=== PATIENT | male | born 1955 | race Caucasian/White ===

== ENCOUNTER 2017-11-12 11:44 | Inpatient (IN) | payer MEDICARE, BC ==
[~2017-11-12] VITALS: Ht 188 cm; Wt 112.1 kg
[2017-11-12] VITALS (13 sets, daily range): BP systolic 158–191; BP diastolic 69–95; PULSE 63–83; RESP 9–20; TEMP 97.7–100.7; O2SAT 95–100
[2017-11-12] MEDS ORDERED: SUCCINYLCHOLINE CHLORIDE 200 MG/10 ML VIAL IV ONE (12:00)
[2017-11-12] MEDS ORDERED: LIDOCAINE HCL 1% PF 5 ML SYRINGE OTHER ONE (12:00)
[2017-11-12] MEDS ORDERED: PROPOFOL 200 MG/20 ML AMP IV ONE (12:00)
[2017-11-12] MEDS ORDERED: PANTOPRAZOLE INJ 80 MG in SODIUM CHLORIDE 0.9% INJ 35 ML IV ONE (12:10)
[2017-11-12] MEDS ORDERED: ONDANSETRON HCL 4 MG/2 ML VIAL IV PUSH ONE (12:15)
[2017-11-12] MEDS ORDERED: MORPHINE SULFATE 2 MG/ML INJ IV PUSH ONE (12:15)
[2017-11-12] MEDS ORDERED: SODIUM CHLOR 0.9% 250 ML INJ 250 ML IV ONE ×2 (12:15→12:45)
[2017-11-12] MEDS ORDERED: SODIUM CHLOR 0.9% 1000 ML INJ 1,000 ML IV ONE (12:15)
[2017-11-12] MEDS ORDERED: PROC10TA PO (12:16)
[2017-11-12] MEDS ORDERED: METH5TAB PO (12:16)
--- NOTE | 2017-11-12 12:16 | PD ---
HPI Chief Complaint: Bleeding Time Seen by Provider: 11:53 Travel History International Travel<30 days: No Contact w/Intl Traveler<30days: No Traveled to known affect area: No History of Present Illness HPI 61-year-old male with PMH of pancreatic cancer status post biliary and duodenal stent presents to the ED for evaluation of approximate 12 hour history of nausea , vomiting, hematemesis, melena, epigastric pain. Symptoms onset suddenly last night before bed. Patient endorses chills, shortness of breath, weakness. He denies fevers, chest pain, palpitations. He states that he is a patient that [facility] in [place], [place]. He is due for his next chemotherapy session in 3 days. He was planning to return home prior to this. PFSH Past Medical History Chemotherapy: Yes (2 WEEKS AGO) Past Surgical History Other Surgery: Yes (BILIARY STENT, DUDONEAL STENT, HEMMORIDECTOMY ) Social History Alcohol Use: No Tobacco Use: No Substance Use: No Allergies-Medications (Allergen,Severity, Reaction): Coded Allergies: No Known Allergies (Unverified , 11/12/17) Reported Meds & Prescriptions Reported Meds & Active Scripts Active Reported Oxycodone (Oxycodone HCl) 10 Mg Tab 10 Mg PO Q8HR PRN NOT TO EXCEED 3 DOSES/24HR Effexor XR 24 HR (Venlafaxine HCl) 75 Mg Cap 75 Mg PO DAILY Creon (Pancrelipase) 36,000-114,000-180,000 Units Cap 1 Cap PO QID BEFORE MEALS AND SNACKS Lovenox Inj (Enoxaparin Sodium) 100 Mg/Ml Syr 100 Mg SQ BID Remeron (Mirtazapine) 15 Mg Tab 7.5 Mg PO HS PRN Lasix (Furosemide) 20 Mg Tab 20 Mg PO DAILY PRN Neurontin (Gabapentin) 300 Mg Cap 300 Mg PO TID Omeprazole 20 Mg Tab 20 Mg PO BID Ambien CR (Zolpidem Tartrate) 12.5 Mg Tab 12.5 Mg PO HS PRN Carafate (Sucralfate) 1 Gram Tab 1 Gm PO QID On empty stomach Prochlorperazine Maleate 10 Mg Tab 10 Mg PO Q6H PRN Methadone (Methadone HCl) 5 Mg Tab 5 Mg PO Q8HR Review of Systems Except as stated in HPI: all other systems reviewed are Neg Physical Exam Narrative GENERAL: Well-nourished, well-developed tachypneic white male SKIN: Focused skin assessment warm/dry. Pale HEAD: Normocephalic. EYES: No scleral icterus. No injection or drainage. NECK: Supple, trachea midline. No JVD or lymphadenopathy. CARDIOVASCULAR: Regular rate and rhythm without murmurs, gallops, or rubs. RESPIRATORY: Breath sounds clear and equal bilaterally. No accessory muscle use. GASTROINTESTINAL: Abdomen soft, nondistended. Tender to palpation in the epigastric region. Active bowel sounds. RECTAL EXAM: No masses or tenderness, stool is maroon. Guaiac positive. MUSCULOSKELETAL: No cyanosis. 2+ edema to the midshin bilaterally. BACK: Nontender without obvious deformity. No CVA tenderness. Data Data Last Documented VS Vital Signs Date Time Temp Pulse Resp B/P (MAP) Pulse Ox O2 Delivery O2 Flow Rate FiO2 11/12/17 13:14 98.8 74 18 158/69 99 11/12/17 12:06 Room Air Orders Orders Complete Blood Count With Diff (11/12/17 11:52) Comprehensive Metabolic Panel (11/12/17 11:52) Lipase (11/12/17 11:52) Prothrombin Time / Inr (Pt) (11/12/17 11:52) Act Partial Throm Time (Ptt) (11/12/17 11:52) Urinalysis - C+S If Indicated (11/12/17 11:52) Type And Screen (11/12/17 11:52) Ecg Monitoring (11/12/17 11:52) Iv Access Insert/Monitor (11/12/17 11:52) Oximetry (11/12/17 11:52) Ondansetron Inj (Zofran Inj) (11/12/17 12:15) Sodium Chlor 0.9% 1000 Ml Inj (Ns 1000 M (11/12/17 12:15) Morphine Inj (Morphine Inj) (11/12/17 12:15) Red Blood Cells (Rbc) (11/12/17 12:10) Blood Product Administration (11/12/17 12:10) Sodium Chlor 0.9% 250 Ml Inj (Ns 250 Ml (11/12/17 12:15) Sodium Chloride 0.9... W/Pantoprazole In (11/12/17 12:10) Blood Product Administration (11/12/17 12:37) Sodium Chlor 0.9% 250 Ml Inj (Ns 250 Ml (11/12/17 12:45) Red Blood Cells (Rbc) (11/12/17 12:37) Insert Ng Tube (11/12/17 13:12) Consult Gastroenterology (11/12/17 ) Sodium Chloride 0.9... W/Pantoprazole In (11/12/17 13:12) Admit Order (Ed Use Only) (11/12/17 13:22) Labs Laboratory Tests Test 11/12/17 12:05 White Blood Count 9.2 TH/MM3 Red Blood Count 1.68 MIL/MM3 Hemoglobin 5.6 GM/DL Hematocrit 16.6 % Mean Corpuscular Volume 99.0 FL Mean Corpuscular Hemoglobin 33.5 PG Mean Corpuscular Hemoglobin Concent 33.8 % Red Cell Distribution Width 25.5 % Platelet Count 234 TH/MM3 Mean Platelet Volume 9.6 FL Neutrophils (%) (Auto) 77.7 % Lymphocytes (%) (Auto) 12.3 % Monocytes (%) (Auto) 9.8 % Eosinophils (%) (Auto) 0.1 % Basophils (%) (Auto) 0.1 % Neutrophils # (Auto) 7.2 TH/MM3 Lymphocytes # (Auto) 1.1 TH/MM3 Monocytes # (Auto) 0.9 TH/MM3 Eosinophils # (Auto) 0.0 TH/MM3 Basophils # (Auto) 0.0 TH/MM3 CBC Comment AUTO DIFF Differential Total Cells Counted 100 Neutrophils % (Manual) 84 % Band Neutrophils % 6 % Lymphocytes % 4 % Monocytes % 5 % Neutrophils # (Manual) 8.3 TH/MM3 Differential Comment FINAL DIFF MANUAL Blastocytes 1 % Platelet Estimate NORMAL Platelet Morphology Comment NORMAL Tear Drop Cells 1+ Prothrombin Time 11.6 SEC Prothromb Time International Ratio 1.1 RATIO Activated Partial Thromboplast Time 20.8 SEC Blood Urea Nitrogen 16 MG/DL Creatinine 1.32 MG/DL Random Glucose 137 MG/DL Total Protein 6.1 GM/DL Albumin 2.3 GM/DL Calcium Level 8.5 MG/DL Alkaline Phosphatase 1212 U/L Aspartate Amino Transf (AST/SGOT) 154 U/L Alanine Aminotransferase (ALT/SGPT) 107 U/L Total Bilirubin 4.1 MG/DL Sodium Level 139 MEQ/L Potassium Level 3.9 MEQ/L Chloride Level 106 MEQ/L Carbon Dioxide Level 23.1 MEQ/L Anion Gap 10 MEQ/L Estimat Glomerular Filtration Rate 55 ML/MIN Lipase 18 U/L MDM Medical Decision Making Medical Screen Exam Complete: Yes Emergency Medical Condition: Yes Differential Diagnosis GI bleed versus anemia versus metabolic derangement versus other Narrative Course 61-year-old male with PMH of pancreatic cancer status post duodenal and biliary stenting presents to the ED for evaluation of hematemesis and 12 hours. Patient is a snowbird, residing primarily in [place]. He is scheduled for chemotherapy in 3 days. Afebrile, pulse 95, BP 191/77, pulse ox 95% ORA on arrival. On exam patient is pale, tachypneic, tender to palpation in the epigastric region. There is edema of the bilateral lower extremities. Exam otherwise unremarkable. Patient's records were [facility] from [facility]. Established. Patient was administered 4 mg of morphine, 4 mg Zofran 1 L normal saline, 80 mg Protonix IV. CBC: Hemoglobin 5.6, hematocrit 16.6. INR 1.1. CMP: BUN 16, creatinine 1.32. Bilirubin 4.1. AST 154. ALT 107. Alk phos 1212. Lipase 18 2 units PRBCs emergent release were administered in the ED. 4 additional units ordered pending type and screen. Dr. Avila spoke with Dr. Marie who requests Protonix drip and NG tube insertion. He plans endoscopy today. I spoke with Dr. Moreland who agrees to accept the patient to the ICU. HemaPrompt Point of Care Internal Pos. & Neg. Controls: Passed Fecal Specimen Occult Blood: Positive Stephanie Powell Nov 12, 2017 12:16
[2017-11-12 12:30] LABS: AUTOMATED NEUTROPHIL # 7.2 TH/MM3 (1.8-7.7); BASOPHIL % 0.1 % (0.0-2.0); EOSINOPHIL % 0.1 % (0.0-4.0); LYMPH % 12.3 % (9.0-44.0); LYMPHOCYTE # 1.1 TH/MM3 (1.0-4.8); MEAN CORPUSCULAR HEMOGLOBIN 33.5 PG (27.0-34.0); MEAN CORPUSCULAR HGB CONC 33.8 % (32.0-36.0); MEAN PLATELET VOLUME 9.6 FL (7.0-11.0); MONO % 9.8 % (0.0-8.0); MONOCYTE # 0.9 TH/MM3 (0-0.9); NEUT % 77.7 % (16.0-70.0); PLATELET COUNT 234 TH/MM3 (150-450); RED BLOOD COUNT 1.68 MIL/MM3 (4.50-5.90); RED CELL DISTRIBUTION WIDTH 25.5 % (11.6-17.2); WHITE BLOOD COUNT 9.2 TH/MM3 (4.0-11.0)
[2017-11-12 12:36] LABS: HEMATOCRIT 16.6 % (39.0-51.0); HEMOGLOBIN 5.6 GM/DL (13.0-17.0)
[2017-11-12 12:52] LABS: ALBUMIN 2.3 GM/DL (3.4-5.0); ALT (GPT) 107 U/L (12-78); AST (GOT) 154 U/L (15-37); BICARBONATE 23.1 MEQ/L (21.0-32.0); BLOOD UREA NITROGEN 16 MG/DL (7-18); CALCIUM 8.5 MG/DL (8.5-10.1); CHLORIDE 106 MEQ/L (98-107); CREATININE 1.32 MG/DL (0.60-1.30); GLOMERULAR FILTRATION RATE 55 ML/MIN (>89); GLUCOSE,RANDOM 137 MG/DL (74-106); INTERNATIONAL NORMALIZED RATIO 1.1 RATIO; PROTHROMBIN TIME - PATIENT 11.6 SEC (9.8-11.6); SODIUM (NA) 139 MEQ/L (136-145)
[2017-11-12] MEDS ORDERED: AMBI12.5 PO (13:04)
[2017-11-12] MEDS ORDERED: VENL75XR PO (13:04)
[2017-11-12] MEDS ORDERED: ENOX100P SQ (13:04)
[2017-11-12] MEDS ORDERED: REME15TA PO (13:04)
[2017-11-12] MEDS ORDERED: CARA1TAB6 PO (13:04)
[2017-11-12] MEDS ORDERED: PANC3600 PO (13:04)
[2017-11-12] MEDS ORDERED: NEUR300C PO (13:04)
[2017-11-12] MEDS ORDERED: OMEP20TA93 PO (13:04)
[2017-11-12] MEDS ORDERED: OXYC-395 PO (13:04)
[2017-11-12] MEDS ORDERED: FURO1TAB62 PO (13:04)
[2017-11-12 13:05] LABS: BANDS 6 % (0-6); BLASTS 1 % (0-0); LYMPHOCYTES 4 % (9-44); MONOCYTES 5 % (0-8); NEUTROPHIL # MANUAL DIFF 8.3 TH/MM3 (1.8-7.7); POLYS (SEG NEUTROPHILS) 84 % (16-70)
[2017-11-12 13:06] LABS: ALKALINE PHOSPHATASE 1212 U/L (45-117); TEARDROP RBCS 1+ (NORMAL); TOTAL BILIRUBIN ADULT 4.1 MG/DL (0.2-1.0); TOTAL PROTEIN 6.1 GM/DL (6.4-8.2)
[2017-11-12] MEDS ORDERED: CHLORHEXIDINE GLUCONATE 2 % 1 PACK (2 CLOTHS) TOP PRN (14:00)
[2017-11-12] MEDS ORDERED: MAGNESIUM SULFATE INJ 4 GM in SODIUM CHLORIDE 0.9% INJ 92 ML IV PRN (14:00)
[2017-11-12] MEDS ORDERED: POTASSIUM PHOSPHATE MONOBASIC 500 MG TAB PO PRN (14:00)
[2017-11-12] MEDS ORDERED: POTASSIUM CHLOR 20 MEQ PREMIX 100 ML IV PRN ×2 (14:00)
[2017-11-12] MEDS ORDERED: MAGNESIUM SULFATE INJ 2 GM in SODIUM CHLORIDE 0.9% INJ 96 ML IV PRN (14:00)
[2017-11-12] MEDS ORDERED: POTASSIUM PHOSPHATE MONOBASIC 500 MG TAB PO/TUBE PRN (14:00)
[2017-11-12] MEDS ORDERED: POTASSIUM CHLORIDE 25 MEQ EFFERVESCENT TAB PO PRN (14:00)
[2017-11-12] MEDS ORDERED: MAGNESIUM OXIDE 400 MG TAB PO PRN (14:00)
[2017-11-12] MEDS ORDERED: SODIUM PHOSPHATE INJ 30 MMOL in SODIUM CHLOR 0.9% 250 ML INJ 240 ML IV PRN (14:00)
[2017-11-12] MEDS ORDERED: POTASSIUM PHOSPHATE INJ 30 MMOL in SODIUM CHLOR 0.9% 250 ML INJ 250 ML IV PRN (14:00)
[2017-11-12] MEDS ORDERED: RESP: ALBUTEROL 2.5 MG/IPRATROPIUM 0.5 MG NEB (PRN) INH (14:00)
[2017-11-12] MEDS ORDERED: MISCELLANEOUS NURSING INFORMATION XX SCH (14:00)
[2017-11-12] MEDS ORDERED: POTASSIUM CHLOR 40 MEQ PREMIX 100 ML IV PRN ×2 (14:00)
--- NOTE | 2017-11-12 14:00 | PD.CONS ---
HPI History of Present Illness This is a 61 year old with who resides at [place], [place] and here for the winter with PMH of stage IV pancreatic cancer with mets to the liver under going chemo, status post biliary and duodenal stent that was placed in January of last yr presents to the ED for evaluation of one day history of nausea, vomiting, hematemesis, melena, epigastric pain. Reports several loose black tarry stools and bloody emesis. Endorses associated constant severe epigastric pain. Denies hematochezia. Patient endorses chills, shortness of breath, and weakness. He denies fevers. Patient is under the care of oncology at [facility] in [place], [place], he is here for the winter. Patient had initial stent placed at in [place] but got infected and was exchanged in [place], [place] a yr ago. Patient had bleeding episode approx. a yr ago. He denies alcohol, NSAIDs or ASA. Hgb is 5.6. Hemodynamically stable. LFTs elevated. Not sure of base line, no previous visits. Last bleeding episodes were last night. Currently feeling nauseous, still with epigastric pain. He is being transfused, on ppi drip, there's plans to transfer to the unit. (Anita Echeverria) PFSH Past Medical History Stage IV pancreatic cancer with mets to the liver (Anita Echeverria) Coded Allergies: No Known Allergies (Unverified , 11/12/17) Medications Current Medications Medications (Trade) Dose Ordered Sig/Yasmeen Route Start Time Stop Time Status Last Admin Sodium Chloride 250 ml @ 15 mls/hr ONCE ONCE IV 11/12/17 12:15 11/13/17 04:54 Sodium Chloride 250 ml @ 15 mls/hr ONCE ONCE IV 11/12/17 12:45 11/13/17 05:24 11/12/17 13:22 Pantoprazole Sodium 80 mg/ Sodium Chloride 100 ml @ 10 mls/hr Q10H IV 11/12/17 13:12 Family History Uncle had colon cancer Social History No alcohol No smoking (Anita Echeverria) Review of Systems Constitutional: COMPLAINS OF: Fatigue Endocrine: DENIES: Polyuria Eyes: DENIES: Double Vision Ears, nose, mouth, throat: DENIES: Hoarseness Respiratory: COMPLAINS OF: Shortness of breath Cardiovascular: DENIES: Chest pain Gastrointestinal: COMPLAINS OF: Abdominal pain, Black stools, Diarrhea, Nausea , Vomiting, Hematemesis, DENIES: Bloody stools, Constipation, Difficulty Swallowing, Anorexia, Odynophagia, Swelling of Abdomen, Heartburn Genitourinary: DENIES: Hematuria Musculoskeletal: DENIES: Back pain Integumentary: DENIES: Jaundice Hematologic/lymphatic: DENIES: Bruising Immunologic/allergic: DENIES: Eczema Neurologic: DENIES: Abnormal gait Psychiatric: DENIES: Anxiety (Anita Echeverria) GI Exam Vitals I&O Vital Signs Date Time Temp Pulse Resp B/P (MAP) Pulse Ox O2 Delivery O2 Flow Rate FiO2 11/12/17 13:14 98.8 74 18 158/69 99 11/12/17 12:06 83 18 100 Room Air 11/12/17 11:57 20 11/12/17 11:45 98.4 95 24 191/77 (115) 95 Laboratory Test 11/12/17 12:05 White Blood Count 9.2 TH/MM3 Red Blood Count 1.68 MIL/MM3 Hemoglobin 5.6 GM/DL Hematocrit 16.6 % Mean Corpuscular Volume 99.0 FL Mean Corpuscular Hemoglobin 33.5 PG Mean Corpuscular Hemoglobin Concent 33.8 % Red Cell Distribution Width 25.5 % Platelet Count 234 TH/MM3 Mean Platelet Volume 9.6 FL Neutrophils (%) (Auto) 77.7 % Lymphocytes (%) (Auto) 12.3 % Monocytes (%) (Auto) 9.8 % Eosinophils (%) (Auto) 0.1 % Basophils (%) (Auto) 0.1 % Neutrophils # (Auto) 7.2 TH/MM3 Lymphocytes # (Auto) 1.1 TH/MM3 Monocytes # (Auto) 0.9 TH/MM3 Eosinophils # (Auto) 0.0 TH/MM3 Basophils # (Auto) 0.0 TH/MM3 CBC Comment AUTO DIFF Differential Total Cells Counted 100 Neutrophils % (Manual) 84 % Band Neutrophils % 6 % Lymphocytes % 4 % Monocytes % 5 % Neutrophils # (Manual) 8.3 TH/MM3 Differential Comment FINAL DIFF MANUAL Blastocytes 1 % Platelet Estimate NORMAL Platelet Morphology Comment NORMAL Tear Drop Cells 1+ Prothrombin Time 11.6 SEC Prothromb Time International Ratio 1.1 RATIO Activated Partial Thromboplast Time 20.8 SEC Blood Urea Nitrogen 16 MG/DL Creatinine 1.32 MG/DL Random Glucose 137 MG/DL Total Protein 6.1 GM/DL Albumin 2.3 GM/DL Calcium Level 8.5 MG/DL Alkaline Phosphatase 1212 U/L Aspartate Amino Transf (AST/SGOT) 154 U/L Alanine Aminotransferase (ALT/SGPT) 107 U/L Total Bilirubin 4.1 MG/DL Sodium Level 139 MEQ/L Potassium Level 3.9 MEQ/L Chloride Level 106 MEQ/L Carbon Dioxide Level 23.1 MEQ/L Anion Gap 10 MEQ/L Estimat Glomerular Filtration Rate 55 ML/MIN Lipase 18 U/L Physical Examination HEENT: normocephalic; atraumatic; no jaundice. CHEST: Chest is clear to auscultation and percussion. CARDIAC: Regular rate and rhythm with no murmur gallop or rubs. ABDOMEN: Soft, nondistended,epigastric tenderness; bowel sounds are present in all four quadrants. EXTREMITIES: No clubbing, cyanosis, or edema. SKIN: Normal; no rash; no jaundice. 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 (Anita Echeverria) Assessment and Plan Plan - Acute upper GI bleed- one day history of nausea, vomiting, hematemesis, melena, epigastric pain. He denies alcohol, NSAIDs or ASA. Hgb is 5.6. Hemodynamically stable Last bleeding episodes were last night. Currently feeling nauseous, still with epigastric pain. He is being transfused, on ppi drip - PMH of stage IV pancreatic cancer with mets to the liver under going chemo, status post biliary and duodenal stent that was placed in January of last yr Patient had initial stent placed at in [place] but got infected and was exchanged in [place], LFTs elevated. Not sure of base line, no previous visits. Patient is under the care of oncology at [facility] in [place], [place], Plan: - NPO - NGT to [facility] - EGD Today - Transfer to the unit - Cont. PPI drip - Monitor hh - Transfuse as needed - Supportive care - Patient seen and examined by Dr. 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 Unsure of baseline. Transfuse 2 units PRBC Eros. IV protonix. Emergent egd. Monitor LFTs. HIDA scan Vs. MRCP to R/O obstruction. Will follow. Thank you (Tila Love MD) Anita Echeverria Nov 12, 2017 14:00 Tila Love MD Nov 12, 2017 15:57
[2017-11-12] MEDS: PANTOPRAZOLE INJ 80 MG in SODIUM CHLORIDE 0.9% INJ 100 ML IV SCH (14:04)
--- NOTE | 2017-11-12 14:05 | PD ---
Data Data Last Documented VS Vital Signs Date Time Temp Pulse Resp B/P (MAP) Pulse Ox O2 Delivery O2 Flow Rate FiO2 11/12/17 13:14 98.8 74 18 158/69 99 11/12/17 12:06 Room Air Orders Orders Complete Blood Count With Diff (11/12/17 11:52) Comprehensive Metabolic Panel (11/12/17 11:52) Lipase (11/12/17 11:52) Prothrombin Time / Inr (Pt) (11/12/17 11:52) Act Partial Throm Time (Ptt) (11/12/17 11:52) Urinalysis - C+S If Indicated (11/12/17 11:52) Type And Screen (11/12/17 11:52) Ecg Monitoring (11/12/17 11:52) Iv Access Insert/Monitor (11/12/17 11:52) Oximetry (11/12/17 11:52) Ondansetron Inj (Zofran Inj) (11/12/17 12:15) Sodium Chlor 0.9% 1000 Ml Inj (Ns 1000 M (11/12/17 12:15) Morphine Inj (Morphine Inj) (11/12/17 12:15) Red Blood Cells (Rbc) (11/12/17 12:10) Blood Product Administration (11/12/17 12:10) Sodium Chlor 0.9% 250 Ml Inj (Ns 250 Ml (11/12/17 12:15) Sodium Chloride 0.9... W/Pantoprazole In (11/12/17 12:10) Blood Product Administration (11/12/17 12:37) Sodium Chlor 0.9% 250 Ml Inj (Ns 250 Ml (11/12/17 12:45) Red Blood Cells (Rbc) (11/12/17 12:37) Insert Ng Tube (11/12/17 13:12) Consult Gastroenterology (11/12/17 ) Sodium Chloride 0.9... W/Pantoprazole In (11/12/17 13:12) Admit Order (Ed Use Only) (11/12/17 13:22) Labs Laboratory Tests Test 11/12/17 12:05 White Blood Count 9.2 TH/MM3 Red Blood Count 1.68 MIL/MM3 Hemoglobin 5.6 GM/DL Hematocrit 16.6 % Mean Corpuscular Volume 99.0 FL Mean Corpuscular Hemoglobin 33.5 PG Mean Corpuscular Hemoglobin Concent 33.8 % Red Cell Distribution Width 25.5 % Platelet Count 234 TH/MM3 Mean Platelet Volume 9.6 FL Neutrophils (%) (Auto) 77.7 % Lymphocytes (%) (Auto) 12.3 % Monocytes (%) (Auto) 9.8 % Eosinophils (%) (Auto) 0.1 % Basophils (%) (Auto) 0.1 % Neutrophils # (Auto) 7.2 TH/MM3 Lymphocytes # (Auto) 1.1 TH/MM3 Monocytes # (Auto) 0.9 TH/MM3 Eosinophils # (Auto) 0.0 TH/MM3 Basophils # (Auto) 0.0 TH/MM3 CBC Comment AUTO DIFF Differential Total Cells Counted 100 Neutrophils % (Manual) 84 % Band Neutrophils % 6 % Lymphocytes % 4 % Monocytes % 5 % Neutrophils # (Manual) 8.3 TH/MM3 Differential Comment FINAL DIFF MANUAL Blastocytes 1 % Platelet Estimate NORMAL Platelet Morphology Comment NORMAL Tear Drop Cells 1+ Prothrombin Time 11.6 SEC Prothromb Time International Ratio 1.1 RATIO Activated Partial Thromboplast Time 20.8 SEC Blood Urea Nitrogen 16 MG/DL Creatinine 1.32 MG/DL Random Glucose 137 MG/DL Total Protein 6.1 GM/DL Albumin 2.3 GM/DL Calcium Level 8.5 MG/DL Alkaline Phosphatase 1212 U/L Aspartate Amino Transf (AST/SGOT) 154 U/L Alanine Aminotransferase (ALT/SGPT) 107 U/L Total Bilirubin 4.1 MG/DL Sodium Level 139 MEQ/L Potassium Level 3.9 MEQ/L Chloride Level 106 MEQ/L Carbon Dioxide Level 23.1 MEQ/L Anion Gap 10 MEQ/L Estimat Glomerular Filtration Rate 55 ML/MIN Lipase 18 U/L [facility] Supervised Visit with LUCIA: Yes Narrative Course The history, exam, and medical decision-making in the associated mid-level provider note were completed with my assistance. I reviewed and agree with the findings presented. I attest that I had a [id number] encounter with the patient on the same day, and personally performed and documented my assessment and findings in the medical record. *My assessment and Findings: 61-year-old man, history of pancreatic CA, receiving chemotherapy, last chemotherapy about 2 weeks ago. He also is a pancreatic stent and a duodenal stent. Here with m GI bleed and maroon stools, as well as lightheadedness and dizziness. Hemoglobin in the fives. Suspect ongoing bleeding. Patient's frail and weak. Any blood thinners. Order 2 units emergency release blood, spoke with Dr. storm a car. Patient states when he had bleeding in the past has been from friable tissue near the duodenal stent. Will admit to the ICU. GI consult. Diagnosis Primary Impression: GI bleed Admitting Information Admitting Physician Requests: Admit Jose Avila MD Nov 12, 2017 14:05
--- NOTE | 2017-11-12 14:06 | HHI.HP ---
HPI Service Critical Care Medicine Primary Care Physician No Primary Care Physician Admission Diagnosis anemia, GI bleed Diagnosis: Chief Complaint: hematemesis Travel History International Travel<30 Days: No Contact w/Intl Traveler <30 Da: No Traveled to Known Affected Are: No History of Present Illness This is a 61-year-old male with pancreatic cancer of which the patient states his terminal undergoing palliative chemotherapy who presents with hematemesis for approximately 12 hours. He states that he had chemotherapy last about 2 weeks ago. He gets all of his care at the [facility], [facility] in [facility]. He states his next chemotherapy is in 3 days. He also states that he has had prior bleeding at his biliary stent site. He has both a biliary stent and a duodenal stent. He does endorse fatigue, nausea, vomiting, diarrhea , melena, hematemesis, and epigastric pain. He denies fever, chills, chest pain , shortness of breath. This has happened before, and the last time it was his biliary stent. He received 2 units and crossmatched blood in the emergency department. His hemoglobin is 5.6 prior to transfusion. Cr 1.32. coags are wnl. Review of Systems Constitutional: COMPLAINS OF: Fatigue, DENIES: Fever, Chills Ears, nose, mouth, throat: DENIES: Oral lesions Respiratory: DENIES: Apneas, Cough, Wheezing, Hemoptysis, Sputum production, Shortness of breath Cardiovascular: DENIES: Chest pain, Palpitations, Syncope, Dyspnea on Exertion , PND, Lower Extremity Edema, Orthopnea Gastrointestinal: COMPLAINS OF: Abdominal pain, Black stools, Bloody stools, Diarrhea, Nausea, Vomiting, DENIES: Constipation, Difficulty Swallowing Genitourinary: DENIES: Hematuria Neurologic: DENIES: Headache Past Family Social History Allergies: Coded Allergies: No Known Allergies (Unverified , 11/12/17) Past Medical History Pancreatic cancer, currently undergoing palliative chemotherapy Past Surgical History Biliary stent Duodenal stent Hemorrhoidectomy Right hand index finger tendon reconstruction Reported Medications Oxycodone (Oxycodone HCl) 10 Mg Tab 10 Mg PO Q8HR PRN NOT TO EXCEED 3 DOSES/24HR Effexor XR 24 HR (Venlafaxine HCl) 75 Mg Cap 75 Mg PO DAILY Creon (Pancrelipase) 36,000-114,000-180,000 Units Cap 1 Cap PO QID BEFORE MEALS AND SNACKS Lovenox Inj (Enoxaparin Sodium) 100 Mg/Ml Syr 100 Mg SQ BID Remeron (Mirtazapine) 15 Mg Tab 7.5 Mg PO HS PRN Lasix (Furosemide) 20 Mg Tab 20 Mg PO DAILY PRN Neurontin (Gabapentin) 300 Mg Cap 300 Mg PO TID Omeprazole 20 Mg Tab 20 Mg PO BID Ambien CR (Zolpidem Tartrate) 12.5 Mg Tab 12.5 Mg PO HS PRN Carafate (Sucralfate) 1 Gram Tab 1 Gm PO QID On empty stomach Prochlorperazine Maleate 10 Mg Tab 10 Mg PO Q6H PRN Methadone (Methadone HCl) 5 Mg Tab 5 Mg PO Q8HR Active Ordered Medications See MAR Family History Reviewed and found to be noncontributory to his acute illness Social History Denies tobacco or alcohol. Does endorse marijuana use infrequently Physical Exam Vital Signs Vital Signs Date Time Temp Pulse Resp B/P (MAP) Pulse Ox O2 Delivery O2 Flow Rate FiO2 11/12/17 13:14 98.8 74 18 158/69 99 11/12/17 12:06 83 18 100 Room Air 11/12/17 11:57 20 11/12/17 11:45 98.4 95 24 191/77 (115) 95 Physical Exam GENERAL: Middle-aged male, lying in bed, very noticeably pale, in distress HEENT: Normocephalic. Atraumatic. Pupils equal, round, reactive, conjugate. Mucous membranes are dry. Sclerae is pale NECK: Trachea is midline. There is no JVD. CHEST: Mildly tachypneic. Nasal cannula oxygen. CARDIOVASCULAR: Tachycardic rate, regular rhythm. Sinus by telemetry ABDOMEN: Soft, nontender, nondistended. No guarding. MUSCULOSKELETAL: Pulses 2+. No peripheral edema. NEUROLOGICAL: RASS 0. CAM -. Follows commands. No focal deficits. Laboratory Laboratory Tests Test 11/12/17 12:05 11/12/17 13:49 White Blood Count 9.2 Red Blood Count 1.68 Hemoglobin 5.6 Hematocrit 16.6 Mean Corpuscular Volume 99.0 Mean Corpuscular Hemoglobin 33.5 Mean Corpuscular Hemoglobin Concent 33.8 Red Cell Distribution Width 25.5 Platelet Count 234 Mean Platelet Volume 9.6 Neutrophils (%) (Auto) 77.7 Lymphocytes (%) (Auto) 12.3 Monocytes (%) (Auto) 9.8 Eosinophils (%) (Auto) 0.1 Basophils (%) (Auto) 0.1 Neutrophils # (Auto) 7.2 Lymphocytes # (Auto) 1.1 Monocytes # (Auto) 0.9 Eosinophils # (Auto) 0.0 Basophils # (Auto) 0.0 CBC Comment AUTO DIFF Differential Total Cells Counted 100 Neutrophils % (Manual) 84 Band Neutrophils % 6 Lymphocytes % 4 Monocytes % 5 Neutrophils # (Manual) 8.3 Differential Comment FINAL DIFF MANUAL Blastocytes 1 Platelet Estimate NORMAL Platelet Morphology Comment NORMAL Tear Drop Cells 1+ Prothrombin Time 11.6 Prothromb Time International Ratio 1.1 Activated Partial Thromboplast Time 20.8 Blood Urea Nitrogen 16 Creatinine 1.32 Random Glucose 137 Total Protein 6.1 Albumin 2.3 Calcium Level 8.5 Alkaline Phosphatase 1212 Aspartate Amino Transf (AST/SGOT) 154 Alanine Aminotransferase (ALT/SGPT) 107 Total Bilirubin 4.1 Sodium Level 139 Potassium Level 3.9 Chloride Level 106 Carbon Dioxide Level 23.1 Anion Gap 10 Estimat Glomerular Filtration Rate 55 Lipase 18 Result Diagram: 11/12/17 1205 11/12/17 1205 Caprini VTE Risk Assessment Caprini VTE Risk Assessment: Mod/High Risk (score >= 2) VTE Pharm Contraindication: Active bleeding Caprini Risk Assessment Model Point Value = 1 Point Value = 2 Point Value = 3 Point Value = 5 Age 41-60 Minor surgery BMI > 25 kg/m2 Swollen legs Varicose veins or History of unexplained or recurrent spontaneous Oral contraceptives or hormone replacement Sepsis (< 1 month) Serious lung disease, including pneumonia (< 1 month) Abnormal pulmonary function Acute myocardial infarction Congestive heart failure (< 1 month) History of inflammatory bowel disease Medical patient at bed rest Age 61-74 Arthroscopic surgery Major open surgery (> 45 min) Laparoscopic surgery (> 45 min) Malignancy Confined to bed (> 72 hours) Immobilizing plaster cast Central venous access Age >= 75 History of VTE Family history of VTE Factor V Leiden Prothrombin [id number] Lupus anticoagulant Anticardiolipin antibodies Elevated serum homocysteine Heparin-induced thrombocytopenia Other congenital or acquired thrombophilia Stroke (< 1 month) Elective arthroplasty Hip, pelvis, or leg fracture Acute spinal cord injury (< 1 month) Prophylaxis Regimen Total Risk Factor Score Risk Level Prophylaxis Regimen 0-1 Low Early ambulation 2 Moderate Order ONE of the following: *Sequential Compression Device (SCD) *Heparin 5000 units SQ BID 3-4 Higher Order ONE of the following medications: *Heparin 5000 units SQ TID *Enoxaparin/Lovenox 40 mg SQ daily (WT < 150 kg, CrCl > 30 mL/min) *Enoxaparin/Lovenox 30 mg SQ daily (WT < 150 kg, CrCl > 10-29 mL/min) *Enoxaparin/Lovenox 30 mg SQ BID (WT < 150 kg, CrCl > 30 mL/min) AND/OR *Sequential Compression Device (SCD) 5 or more Highest Order ONE of the following medications: *Heparin 5000 units SQ TID (Preferred with Epidurals) *Enoxaparin/Lovenox 40 mg SQ daily (WT < 150 kg, CrCl > 30 mL/min) *Enoxaparin/Lovenox 30 mg SQ daily (WT < 150 kg, CrCl > 10-29 mL/min) *Enoxaparin/Lovenox 30 mg SQ BID (WT < 150 kg, CrCl > 30 mL/min) AND *Sequential Compression Device (SCD) Assessment and Plan Assessment and Plan Assessment: 61yM with pancreatic cancer and active GI bleed. This is most likely secondary to bleeding at one of the stent sites. She has been consulted and plans to perform procedural intervention. I spoke at length to the patient about his CODE STATUS. He prefers to be intubation only, and even this the patient states he would only want to be intubated if it would be a short-term procedure a short-term course of mechanical ventilation. He states he does not want CPR, "let me go". Congruent with his wishes, we will make the patient an alternate CODE STATUS, intubation only. Active GI bleed Pancreatic Cancer Abdominal pain associated with pancreatic cancer Anemia secondary to acute blood loss Acute kidney injury Acute intravascular volume depletion - admit to ICU - serial h&h - protonix drip - dilaudid 1mg iv q3h prn for pain home regimen: methadone 5mg po TID, oxycodone 10mg po q4h prn. must hold this due to GI bleeding. - s/p 2 units prbc, check hgb after transfusion - GI consulted: plan for EGD with intervention - NPO - 2 large bore piv's at all times - mivf - strict i/o's. trend Cr on BMP. - SCDs, avoid pharmacologic DVT prophylaxis given gi bleeding. code status: intubation only. no CPR. Ruddy Moreland MD Nov 12, 2017 14:06
[2017-11-12] MEDS: SODIUM CHLOR 0.9% 1000 ML INJ 1,000 ML IV SCH (14:15)
[2017-11-12 14:29] LABS: BACTERIA, URINE RARE /hpf; BILIRUBIN, URINE SMALL (NEG); BLOOD, URINE SMALL (NEG); GLUCOSE,URINE NEG (NEG); KETONE, URINE NEG (NEG); NITRITE,URINE NEG (NEG); PH, URINE 7.5 (5.0-8.5); SQUAMOUS EPITHELIAL CELL URINE <1 /hpf (0-5); URINE COLOR DARK-YELLOW (YELLW/STRAW); URINE LEUKOCYTE ESTERASE NEG (NEG)
[2017-11-12] MEDS: HYDROmorphone HCL PF 2 MG/ML VIAL IV PUSH PRN ×3 (15:13→21:04)
[2017-11-12] MEDS: ONDANSETRON HCL 4 MG/2 ML VIAL IV PUSH PRN (15:13)
[2017-11-12] MEDS ORDERED: DO NOT ADM ANY ANTICOAGULANT DRUGS PRN (16:05)
--- NOTE | 2017-11-12 16:14 | GIPROC ---
[facility] [address] [facility]. [facility], [address] EGD PROCEDURE REPORT EXAM DATE: 11/12/2017 PATIENT NAME: Storm Mata MR #: [id number] BIRTHDATE: 1955 ATTENDING: Tila Love MD ORDER #: [id number] POWER PROJECT MANAGER: Satish Alas and Soraya Braden STATUS: inpatient INDICATIONS: The patient is a 61 yr old male here for an EGD due to acute post hemorrhagic anemia and melena PROCEDURE PERFORMED: EGD, diagnostic MEDICATIONS: None and Per Anesthesia. TOPICAL ANESTHETIC: CONSENT: The patient understands the risks and benefits of the procedure and understands that these risks include, but are not limited to: sedation, allergic reaction, infection, perforation and/or bleeding. Alternative means of evaluation and treatment include, among others: physical exam, x-rays, and/or surgical intervention. The patient elects to proceed with this endoscopic procedure. medical equipment was checked for proper function. Hand hygiene and appropriate measures for infection prevention was taken. After the risks, benefits and alternatives of the procedure were thoroughly explained, Informed consent was verified, confirmed and timeout was successfully executed by the treatment team. The patient was anesthetized with topical anesthesia and the Pentax EG-[id number] endoscope was introduced through the mouth and advanced to the bulb of duodenum. Retroflexed views revealed no abnormalities The gastroscope was then slowly withdrawn and removed. ESOPHAGUS: The mucosa of the esophagus appeared normal. STOMACH: There was mild gastritis in the gastric antrum. Duodenal stent seen extending to the pylorus. Debris and ulceration seen around the stent. Significant growth of tissue through the stent. Some oozing seen from extremely friable mucosa around the stent. No single site of bleeding identified. ADVERSE EVENTS: There were no complications. IMPRESSIONS: 1. The esophagus appeared normal 2. There was mild gastritis in the gastric antrum 3. Duodenal stent seen extending to the pylorus. Debris and ulceration seen around the stent. Significant growth of tissue through the stent. Some oozing seen from extremely friable mucosa around the stent. No single site of bleeding identified 4. Retroflexed views revealed no abnormalities RECOMMENDATIONS: 1. Continue PPI 2. ICU monitoring 3. Monitor labs. Angiogram if rebleeds. MRCP to r/o stent obstruction PATIENT CONDITION: stable DISPOSITION: Inpatient REPEAT EXAM: Return as needed for EGD Tila Love MD eSigned: Tila Love MD 11/12/2017 4:14 PM cc: PATIENT NAME: Storm Mata MR#: [id number]
[2017-11-12 17:43] LABS: HEMATOCRIT 19.5 % (39.0-51.0); HEMOGLOBIN 6.7 GM/DL (13.0-17.0)
[2017-11-12] MEDS ORDERED: GADODIAMIDE PF 287 MG/ML 20 ML VIAL (for RAD MRI) IVCONTRAST ONE (20:06)
--- NOTE | 2017-11-12 21:11 | RADRPT ---
EXAM DATE/TIME: 11/12/2017 20:01 [place] COMPARISON: No previous studies available for comparison. INDICATIONS : Pancreatic cancer. Vomiting. Blood in stool. CONTRAST: 20 cc Omniscan (gadodiamide) IV MEDICAL HISTORY : Carcinoma, pancreas. SURGICAL HISTORY : Total knee replacement, left. Total knee replacement, right. Hemorrhoidectomy. Biliary stent. ENCOUNTER: Initial ACUITY: 1 day PAIN SCORE: 2/10 LOCATION: upper quadrant TECHNIQUE: Multiplanar, multisequence magnetic resonance imaging of the abdomen was performed. High-resolution 3D dataset was utilized to reconstruct maximum-intensity projection (MIP) images. FINDINGS: Examination is limited due to motion artifact. Multiple gallstones are present and the pancreas appears atrophic with pancreatic duct measures almost 6 mm. There multiple lesions in the right hepat ic lobe not adequately characterized the largest one measures 2.1 cm in size this is for metastatic d isease. 1.8 cm left adrenal nodule is present without nulling of the signal on chemical shift imaging . The common bile duct and intrahepatic ducts are difficult to visualize, however there appears to be some degree of pneumobilia. There is slight ascites in the upper abdomen. CONCLUSION: 1. Multiple lesions in the liver suspicious for metastatic disease not adequately characterized. 2. Slight ascites in the upper abdomen and cholelithiasis. 3. The bile ducts are difficult to visualize, however slight pneumobilia is present. 4. Slightly dilated pancreatic duct and the pancreas appears atrophic without a clear mass with techn ique. 5. May consider dedicated CT examination of the abdomen with intravenous contrast to further rangel Vergara MD on November 12, 2017 at 21:01 Board Certified Radiologist. This report was verified electronically.
[2017-11-13] VITALS (12 sets, daily range): BP systolic 117–154; BP diastolic 65–87; PULSE 75–101; RESP 13–24; TEMP 98.7–102.5; O2SAT 92–96
[2017-11-13] MEDS: PANTOPRAZOLE INJ 80 MG in SODIUM CHLORIDE 0.9% INJ 100 ML IV SCH ×3 (00:10→20:41)
[2017-11-13] MEDS: SODIUM CHLOR 0.9% 1000 ML INJ 1,000 ML IV SCH ×3 (00:10→22:56)
[2017-11-13 01:23] LABS: HEMATOCRIT 27.1 % (39.0-51.0); HEMOGLOBIN 9.2 GM/DL (13.0-17.0)
[2017-11-13] MEDS: HYDROmorphone HCL PF 2 MG/ML VIAL IV PUSH PRN ×7 (03:17→22:56)
[2017-11-13] MEDS: CHLORHEXIDINE GLUCONATE 2 % 1 PACK (2 CLOTHS) TOP SCH (04:00)
[2017-11-13 07:03] LABS: HEMATOCRIT 25.4 % (39.0-51.0); HEMOGLOBIN 8.6 GM/DL (13.0-17.0); MEAN CELL VOLUME 90.9 FL (80.0-100.0); MEAN CORPUSCULAR HEMOGLOBIN 30.7 PG (27.0-34.0); MEAN CORPUSCULAR HGB CONC 33.8 % (32.0-36.0); MEAN PLATELET VOLUME 9.7 FL (7.0-11.0); PLATELET COUNT 168 TH/MM3 (150-450); RED CELL DISTRIBUTION WIDTH 19.3 % (11.6-17.2); WHITE BLOOD COUNT 13.1 TH/MM3 (4.0-11.0)
[2017-11-13 07:36] LABS: BICARBONATE 26.2 MEQ/L (21.0-32.0); CALCIUM 7.7 MG/DL (8.5-10.1); CREATININE 1.16 MG/DL (0.60-1.30)
--- NOTE | 2017-11-13 09:24 | HHI.GIFU ---
Subjective Remarks Pt sitting up in bed. Pain improved from yesterday. No visible bleeding today. Nausea improved. (Catrachita Ross) Objective Vitals I&O Vital Signs Date Time Temp Pulse Resp B/P (MAP) Pulse Ox O2 Delivery O2 Flow Rate FiO2 11/13/17 07:33 18 11/13/17 06:00 79 11/13/17 06:00 92 Nasal Cannula 2.00 11/13/17 04:00 86 11/13/17 04:00 99.7 86 18 136/73 (94) 95 11/13/17 02:00 81 11/13/17 00:00 100.2 79 20 139/73 (95) 96 11/13/17 00:00 79 11/12/17 22:13 100.0 79 18 164/89 98 11/12/17 22:00 75 11/12/17 21:56 100.7 78 18 182/93 96 11/12/17 21:30 99 21 11/12/17 20:00 78 11/12/17 20:00 98.5 75 20 165/88 (113) 96 11/12/17 18:23 97.7 65 19 163/84 97 11/12/17 18:01 98.0 63 16 159/95 99 11/12/17 18:00 70 11/12/17 17:00 97.9 75 9 159/90 (113) 98 11/12/17 16:29 75 19 150/80 (103) 99 Nasal Cannula 2 11/12/17 16:10 98.2 78 19 156/86 (109) 99 Nasal Cannula 2 11/12/17 15:56 11/12/17 14:25 98.8 67 20 177/81 99 11/12/17 13:14 98.8 74 18 158/69 99 11/12/17 12:06 83 18 100 Room Air 11/12/17 11:57 20 11/12/17 11:45 98.4 95 24 191/77 (115) 95 I/O 11/12/17 11/12/17 11/12/17 11/13/17 11/13/17 11/13/17 07:00 15:00 23:00 07:00 15:00 23:00 Intake Total 1585 ml 1475 ml 2220 ml Output Total 180 ml 600 ml Balance 1585 ml 1295 ml 1620 ml Intake Oral 236 ml 480 ml IV Total 1135 ml 379 ml 1325 ml Packed Cells 400 ml 800 ml 400 ml Blood Product IV Normal Saline Flush 50 ml 10 ml 15 ml Other 50 ml Output Urine Total 180 ml 600 ml Laboratory Laboratory Tests Test 11/12/17 12:05 11/12/17 13:49 11/12/17 15:15 11/12/17 17:00 White Blood Count 9.2 Red Blood Count 1.68 Hemoglobin 5.6 6.7 Hematocrit 16.6 19.5 Mean Corpuscular Volume 99.0 Mean Corpuscular Hemoglobin 33.5 Mean Corpuscular Hemoglobin Concent 33.8 Red Cell Distribution Width 25.5 Platelet Count 234 Mean Platelet Volume 9.6 Neutrophils (%) (Auto) 77.7 Lymphocytes (%) (Auto) 12.3 Monocytes (%) (Auto) 9.8 Eosinophils (%) (Auto) 0.1 Basophils (%) (Auto) 0.1 Neutrophils # (Auto) 7.2 Lymphocytes # (Auto) 1.1 Monocytes # (Auto) 0.9 Eosinophils # (Auto) 0.0 Basophils # (Auto) 0.0 CBC Comment AUTO DIFF Differential Total Cells Counted 100 Neutrophils % (Manual) 84 Band Neutrophils % 6 Lymphocytes % 4 Monocytes % 5 Neutrophils # (Manual) 8.3 Differential Comment FINAL DIFF MANUAL Blastocytes 1 Platelet Estimate NORMAL Platelet Morphology Comment NORMAL Tear Drop Cells 1+ Prothrombin Time 11.6 Prothromb Time International Ratio 1.1 Activated Partial Thromboplast Time 20.8 Blood Urea Nitrogen 16 Creatinine 1.32 Random Glucose 137 Total Protein 6.1 Albumin 2.3 Calcium Level 8.5 Alkaline Phosphatase 1212 Aspartate Amino Transf (AST/SGOT) 154 Alanine Aminotransferase (ALT/SGPT) 107 Total Bilirubin 4.1 Sodium Level 139 Potassium Level 3.9 Chloride Level 106 Carbon Dioxide Level 23.1 Anion Gap 10 Estimat Glomerular Filtration Rate 55 Lipase 18 Urine Color DARK-YELLOW Urine Turbidity CLEAR Urine pH 7.5 Urine Specific [place] 1.015 Urine Protein 30 Urine Glucose (UA) NEG Urine Ketones NEG Urine Occult Blood SMALL Urine Nitrite NEG Urine Bilirubin SMALL Urine Urobilinogen 4.0 Urine Leukocyte Esterase NEG Urine RBC 3 Urine WBC LESS THAN 1 Urine Squamous Epithelial Cells <1 Urine Bacteria RARE Microscopic Urinalysis Comment CULT NOT INDICATED Nasal Screen MRSA (PCR) MRSA NOT DETECTED Test 11/13/17 01:13 11/13/17 06:52 Hemoglobin 9.2 8.6 Hematocrit 27.1 25.4 White Blood Count 13.1 Red Blood Count 2.80 Mean Corpuscular Volume 90.9 Mean Corpuscular Hemoglobin 30.7 Mean Corpuscular Hemoglobin Concent 33.8 Red Cell Distribution Width 19.3 Platelet Count 168 Mean Platelet Volume 9.7 Blood Urea Nitrogen 15 Creatinine 1.16 Random Glucose 132 Calcium Level 7.7 Sodium Level 140 Potassium Level 4.2 Chloride Level 109 Carbon Dioxide Level 26.2 Anion Gap 5 Estimat Glomerular Filtration Rate 64 Imaging Last Impressions Cholangiopancreatography MRI 11/12/17 0000 Signed Impressions: Service Date/Time: Sunday, November 12, 2017 20:01 - CONCLUSION: 1. Multiple lesions in the liver suspicious for metastatic disease not adequately characterized. 2. Slight ascites in the upper abdomen and cholelithiasis. 3. The bile ducts are difficult to visualize, however slight pneumobilia is present. 4. Slightly dilated pancreatic duct and the pancreas appears atrophic without a clear mass with technique. 5. May consider dedicated CT examination of the abdomen with intravenous contrast to further characterize. Tez Vergara MD Physical Exam HEENT: PERRL; normocephalic; atraumatic; + icterus CHEST: CTA CARDIAC: RRR ABDOMEN: semifirm > right quadrant, distended, nontender; +hepatomegaly; bowel sounds are present in all four quadrants. EXTREMITIES: No clubbing, cyanosis, + BLE edema. SKIN: Normal; no rash; + jaundice. CAREER DEVELOPMENT CONSULTANT: No focal deficits; alert and oriented times three. (Catrachita Ross [facility]) Assessment and Plan Plan - Acute upper GI bleed- one day history of nausea, vomiting, hematemesis, melena, epigastric pain. He denies alcohol, NSAIDs or ASA. Hgb is 5.6. Hemodynamically stable Last bleeding episodes were last night. Currently feeling nauseous, still with epigastric pain. He is being transfused, on ppi drip - PMH of stage IV pancreatic cancer with mets to the liver under going chemo, status post biliary and duodenal stent that was placed in January of last yr Patient had initial stent placed at in [place] but got infected and was exchanged in [place], LFTs elevated. Not sure of base line, no previous visits. Patient is under the care of oncology at [facility] in [place], [place], 11/13/17 - pain, nausea improved. s/p EGD found gastritis, duodenal stent with ulcerated tissue around it, oozing but no specific bleeding site seen MRCP degraded by motion artifact, showed liver lesions, slight ascites, pneumobilia. mild decrease hgb today but no obvious bleeding Plan: - soft heart healthy diet - Transfer to the unit - Cont. PPI drip - Monitor labs - Transfuse as needed - if bleeds again will need angiogram - Supportive care - Patient seen and examined by Dr. Bonilla and myself and this note is on her behalf (Catrachita Ross) Physician Comments seen, examined agree with above available records reviewed [place] care await ct abdomen/pelvis, oncology eval if rebleeding consider IR for angiogram monitor lfts in worsening consider PTC (Zhane Bonilla MD) Catrachita Ross Nov 13, 2017 09:24 Zhane Bonilla MD Nov 13, 2017 11:52
--- NOTE | 2017-11-13 10:10 | HHI.CCPN ---
Subjective Remarks/Hospital Course This is a 61-year-old male with pancreatic cancer of which the patient states his terminal undergoing palliative chemotherapy who presents with hematemesis for approximately 12 hours. He states that he had chemotherapy last about 2 weeks ago. He gets all of his care at the [facility] in [facility]. He states his next chemotherapy is in 3 days. He also states that he has had prior bleeding at his biliary stent site. He has both a biliary stent and a duodenal stent. He does endorse fatigue, nausea, vomiting, diarrhea , melena, hematemesis, and epigastric pain. He denies fever, chills, chest pain , shortness of breath. This has happened before, and the last time it was his biliary stent. He received 2 units and crossmatched blood in the emergency department. His hemoglobin is 5.6 prior to transfusion. Cr 1.32. coags are wnl. 11/13 Patient is lying in bed in NAD. Afebrile. s/p transfusion 4 units total since arrival Hgb 8.6 this morning from 5.6 yesterday. Objective Vital Signs Date Time Temp Pulse Resp B/P (MAP) Pulse Ox O2 Delivery O2 Flow Rate FiO2 11/13/17 07:33 18 11/13/17 06:00 79 11/13/17 06:00 92 Nasal Cannula 2.00 11/13/17 04:00 99.7 136/73 (94) 11/12/17 21:30 21 Intake and Output 11/13/17 11/13/17 11/14/17 08:00 16:00 00:00 Intake Total 1805 ml Output Total 600 ml Balance 1205 ml Result Diagram: 11/13/17 0652 11/13/17 0652 Other Results Laboratory Tests Test 11/12/17 12:05 11/12/17 13:49 11/12/17 15:15 11/12/17 17:00 White Blood Count 9.2 TH/MM3 Red Blood Count 1.68 MIL/MM3 Hemoglobin 5.6 GM/DL 6.7 GM/DL Hematocrit 16.6 % 19.5 % Mean Corpuscular Volume 99.0 FL Mean Corpuscular Hemoglobin 33.5 PG Mean Corpuscular Hemoglobin Concent 33.8 % Red Cell Distribution Width 25.5 % Platelet Count 234 TH/MM3 Mean Platelet Volume 9.6 FL Neutrophils (%) (Auto) 77.7 % Lymphocytes (%) (Auto) 12.3 % Monocytes (%) (Auto) 9.8 % Eosinophils (%) (Auto) 0.1 % Basophils (%) (Auto) 0.1 % Neutrophils # (Auto) 7.2 TH/MM3 Lymphocytes # (Auto) 1.1 TH/MM3 Monocytes # (Auto) 0.9 TH/MM3 Eosinophils # (Auto) 0.0 TH/MM3 Basophils # (Auto) 0.0 TH/MM3 CBC Comment AUTO DIFF Differential Total Cells Counted 100 Neutrophils % (Manual) 84 % Band Neutrophils % 6 % Lymphocytes % 4 % Monocytes % 5 % Neutrophils # (Manual) 8.3 TH/MM3 Differential Comment FINAL DIFF MANUAL Blastocytes 1 % Platelet Estimate NORMAL Platelet Morphology Comment NORMAL Tear Drop Cells 1+ Prothrombin Time 11.6 SEC Prothromb Time International Ratio 1.1 RATIO Activated Partial Thromboplast Time 20.8 SEC Blood Urea Nitrogen 16 MG/DL Creatinine 1.32 MG/DL Random Glucose 137 MG/DL Total Protein 6.1 GM/DL Albumin 2.3 GM/DL Calcium Level 8.5 MG/DL Alkaline Phosphatase 1212 U/L Aspartate Amino Transf (AST/SGOT) 154 U/L Alanine Aminotransferase (ALT/SGPT) 107 U/L Total Bilirubin 4.1 MG/DL Sodium Level 139 MEQ/L Potassium Level 3.9 MEQ/L Chloride Level 106 MEQ/L Carbon Dioxide Level 23.1 MEQ/L Anion Gap 10 MEQ/L Estimat Glomerular Filtration Rate 55 ML/MIN Lipase 18 U/L Urine Color DARK-YELLOW Urine Turbidity CLEAR Urine pH 7.5 Urine Specific [place] 1.015 Urine Protein 30 mg/dL Urine Glucose (UA) NEG mg/dL Urine Ketones NEG mg/dL Urine Occult Blood SMALL Urine Nitrite NEG Urine Bilirubin SMALL Urine Urobilinogen 4.0 MG/DL Urine Leukocyte Esterase NEG Urine RBC 3 /hpf Urine WBC LESS THAN 1 /hpf Urine Squamous Epithelial Cells <1 /hpf Urine Bacteria RARE /hpf Microscopic Urinalysis Comment CULT NOT INDICATED Nasal Screen MRSA (PCR) MRSA NOT DETECTED Test 11/13/17 01:13 11/13/17 06:52 Hemoglobin 9.2 GM/DL 8.6 GM/DL Hematocrit 27.1 % 25.4 % White Blood Count 13.1 TH/MM3 Red Blood Count 2.80 MIL/MM3 Mean Corpuscular Volume 90.9 FL Mean Corpuscular Hemoglobin 30.7 PG Mean Corpuscular Hemoglobin Concent 33.8 % Red Cell Distribution Width 19.3 % Platelet Count 168 TH/MM3 Mean Platelet Volume 9.7 FL Blood Urea Nitrogen 15 MG/DL Creatinine 1.16 MG/DL Random Glucose 132 MG/DL Calcium Level 7.7 MG/DL Sodium Level 140 MEQ/L Potassium Level 4.2 MEQ/L Chloride Level 109 MEQ/L Carbon Dioxide Level 26.2 MEQ/L Anion Gap 5 MEQ/L Estimat Glomerular Filtration Rate 64 ML/MIN Imaging Last Impressions Cholangiopancreatography MRI 11/12/17 0000 Signed Impressions: Service Date/Time: Sunday, November 12, 2017 20:01 - CONCLUSION: 1. Multiple lesions in the liver suspicious for metastatic disease not adequately characterized. 2. Slight ascites in the upper abdomen and cholelithiasis. 3. The bile ducts are difficult to visualize, however slight pneumobilia is present. 4. Slightly dilated pancreatic duct and the pancreas appears atrophic without a clear mass with technique. 5. May consider dedicated CT examination of the abdomen with intravenous contrast to further characterize. Tez Vergara MD Objective Remarks GENERAL: Middle-aged male, lying in bed, very noticeably pale, in distress HEENT: Normocephalic. Atraumatic. Pupils equal, round, reactive, conjugate. Mucous membranes are dry. Sclerae is pale NECK: Trachea is midline. There is no JVD. CHEST: Mildly tachypneic. Nasal cannula oxygen. CARDIOVASCULAR: Tachycardic rate, regular rhythm. Sinus by telemetry ABDOMEN: Soft, nontender, nondistended. No guarding. MUSCULOSKELETAL: Pulses 2+. No peripheral edema. NEUROLOGICAL: RASS 0. CAM -. Follows commands. No focal deficits. A/P Assessment and Plan Assessment: 61yM with pancreatic cancer and active GI bleed. This is most likely secondary to bleeding at one of the stent sites. She has been consulted and plans to perform procedural intervention. I spoke at length to the patient about his CODE STATUS. He prefers to be intubation only, and even this the patient states he would only want to be intubated if it would be a short-term procedure a short-term course of mechanical ventilation. He states he does not want CPR, "let me go". Congruent with his wishes, we will make the patient an alternate CODE STATUS, intubation only. Neuro: Awake and alert Pulm: Continue with oxygen keep sat >92% Bronchodilators CV: Monitor HR and BP keep MAP>65mmHg GI: Active GI bleed Pancreatic Cancer Abdominal pain associated with pancreatic cancer Anemia secondary to acute blood loss Elevated LFT's likely 2nd liver mets s/p transfusion 4u total PRBC Hgb 8.6 s/p EGD2/4: mild gastritis in the gastric antrum Duodenal stent seen extending to the pylorus. Debris and ulceration seen around the stent. Some oozing seen from extremely friable mucosa around the stent. No single site of bleeding identified MRCP: Multiple lesions in the liver suspicious for metastatic disease. Slight ascites in the upper abdomen and cholelithiasis. Slightly dilated pancreatic duct and the pancreas appears atrophic without a clear mass GI is following- Discussed with Dr. Bonilla will get CT abdomen with IV contrast On PO diet per GI, on Protonix drip Monitor LFT's Acute kidney injury.. resolved Monitor renal function, I/O's, electrolytes replacement per protocol. Continue IVF NS@75ml/hr Heme/Onc: Anemia Monitor CBC s/p transfusion 4u PRBC total Consult medical Oncology Endo: SSI if needed for glycemic control ID Place on Zosyn empirically, panculture(Blood, sputum, urine) GI prophylaxis-on Protonix drip DVT prophylaxis- SCD's only given GI bleed and severe anemia requiring blood transfusion Level 3 Nona Tse MD Nov 13, 2017 10:10
[2017-11-13] MEDS ORDERED: DIATRIZOATE MEGLUM/DIATRIZOATE SOD 9 ML CUP PO ONE (11:30)
[2017-11-13] MEDS: ONDANSETRON HCL 4 MG/2 ML VIAL IV PUSH PRN (12:13)
[2017-11-13 12:49] LABS: HEMATOCRIT 27.5 % (39.0-51.0); HEMOGLOBIN 9.3 GM/DL (13.0-17.0)
[2017-11-13 13:09] LABS: ALBUMIN 1.9 GM/DL (3.4-5.0)
[2017-11-13 13:12] LABS: INDIRECT BILIRUBIN 0.6 MG/DL (0.0-0.8); TOTAL BILIRUBIN ADULT 5.6 MG/DL (0.2-1.0); TOTAL PROTEIN 5.4 GM/DL (6.4-8.2)
[2017-11-13] MEDS ORDERED: IOHEXOL 350 MG/ML 10 ML VIAL (for RAD DIAG) IVCONTRAST ONE (16:33)
--- NOTE | 2017-11-13 16:51 | RADRPT ---
EXAM DATE/TIME: 11/13/2017 16:28 [facility] COMPARISON: MRCP W & W/O CONTRAST, November 12, 2017, 20:01. INDICATIONS : Anemia, GI bleed, pancreatic cancer, liver mets. IV CONTRAST: 97 cc Omnipaque 350 (iohexol) IV ORAL CONTRAST: Prescribed oral contrast ingested. RADIATION DOSE: 16.46 CTDIvol (mGy) MEDICAL HISTORY : Carcinoma, pancreas. SURGICAL HISTORY : None. ENCOUNTER: Initial ACUITY: 1 day LOCATION: abdomen TECHNIQUE: Volumetric scanning of the abdomen and pelvis was performed. Using automated exposure control and ad justment of the mA and/or kV according to patient size, radiation dose was kept as low as reasonably achievable to obtain optimal diagnostic quality images. DICOM format image data is available electro nically for review and comparison. FINDINGS: Trace small bilateral pleural effusions. Minimal bibasilar parenchymal changes Mild cardiomegaly Moderate ascites with small shrunken liver. Liver metastases are evident by both CT and MRCP Duodenal stent is evident Apparent biliary stent is evident Minimal biliary air is evident Spleen is unremarkable Adrenal glands Right and left kidneys are unremarkable There is no acute adenopathy Moderate ascites is present in the pelvis. CONCLUSION: Duodenal stent and biliary stent as described above stents obscure fine detail about the pancreas. Moderate ascites Liver metastases Isra Oliveira MD FACR on November 13, 2017 at 16:44 Board Certified Radiologist. This report was verified electronically.
[2017-11-13] MEDS ORDERED: ACETAMINOPHEN 325 MG TAB PO ONE (17:45)
[2017-11-13 18:12] LABS: HEMATOCRIT 25.4 % (39.0-51.0); HEMOGLOBIN 8.8 GM/DL (13.0-17.0)
[2017-11-13] MEDS: PIPERACIL-TAZO 4.5 GM PREMIX 100 ML IV SCH ×2 (18:18→22:56)
[2017-11-14] VITALS (20 sets, daily range): BP systolic 128–154; BP diastolic 70–87; PULSE 65–93; RESP 10–24; TEMP 98–98.8; O2SAT 94–97
[2017-11-14 01:05] LABS: HEMATOCRIT 25.8 % (39.0-51.0); HEMOGLOBIN 8.8 GM/DL (13.0-17.0)
[2017-11-14] MEDS: CHLORHEXIDINE GLUCONATE 2 % 1 PACK (2 CLOTHS) TOP SCH (04:00)
[2017-11-14] MEDS: PIPERACIL-TAZO 4.5 GM PREMIX 100 ML IV SCH ×3 (04:45→18:01)
[2017-11-14] MEDS: HYDROmorphone HCL PF 2 MG/ML VIAL IV PUSH PRN ×3 (04:45→21:43)
[2017-11-14 06:20] LABS: AUTOMATED NEUTROPHIL # 9.4 TH/MM3 (1.8-7.7); BASOPHIL % 0.3 % (0.0-2.0); EOSINOPHIL % 0.1 % (0.0-4.0); HEMATOCRIT 22.8 % (39.0-51.0); LYMPH % 5.5 % (9.0-44.0); LYMPHOCYTE # 0.6 TH/MM3 (1.0-4.8); MEAN CELL VOLUME 90.9 FL (80.0-100.0); MEAN CORPUSCULAR HEMOGLOBIN 31.9 PG (27.0-34.0); MEAN CORPUSCULAR HGB CONC 35.1 % (32.0-36.0); MEAN PLATELET VOLUME 9.1 FL (7.0-11.0); MONO % 8.9 % (0.0-8.0); NEUT % 85.2 % (16.0-70.0); PLATELET COUNT 185 TH/MM3 (150-450); RED BLOOD COUNT 2.51 MIL/MM3 (4.50-5.90); RED CELL DISTRIBUTION WIDTH 19.6 % (11.6-17.2)
[2017-11-14] MEDS: PANTOPRAZOLE INJ 80 MG in SODIUM CHLORIDE 0.9% INJ 100 ML IV SCH ×2 (06:50→18:01)
[2017-11-14 07:03] LABS: ALBUMIN 1.6 GM/DL (3.4-5.0); AST (GOT) 33 U/L (15-37); BICARBONATE 23.6 MEQ/L (21.0-32.0); BLOOD UREA NITROGEN 17 MG/DL (7-18); CALCIUM 7.9 MG/DL (8.5-10.1); CHLORIDE 105 MEQ/L (98-107); CREATININE 1.04 MG/DL (0.60-1.30); GLOMERULAR FILTRATION RATE 72 ML/MIN (>89); GLUCOSE,RANDOM 109 MG/DL (74-106); MAGNESIUM 1.9 MG/DL (1.5-2.5); SODIUM (NA) 136 MEQ/L (136-145)
[2017-11-14 07:05] LABS: ALT (GPT) 45 U/L (12-78); PHOSPHORUS 3.4 MG/DL (2.5-4.9)
[2017-11-14 07:21] LABS: OVALOCYTES 1+ (NORMAL); TEARDROP RBCS 1+ (NORMAL)
[2017-11-14 07:23] LABS: ALKALINE PHOSPHATASE 641 U/L (45-117); TOTAL BILIRUBIN ADULT 3.4 MG/DL (0.2-1.0); TOTAL PROTEIN 4.7 GM/DL (6.4-8.2)
--- NOTE | 2017-11-14 08:42 | HHI.PR ---
Subjective Remarks Follow up GI bleed, anemia, metastatic pancreatic cancer. Patient has no complaints at this time. Denies any bleeding overnight. Had fever yesterday afternoon, but was afebrile overnight. No pain currently. Objective Vitals Vital Signs Date Time Temp Pulse Resp B/P (MAP) Pulse Ox O2 Delivery O2 Flow Rate FiO2 11/14/17 06:00 72 11/14/17 04:00 69 11/14/17 04:00 98.8 69 12 128/76 (93) 94 11/14/17 02:00 65 11/14/17 00:00 67 11/14/17 00:00 98.8 67 14 129/77 (94) 96 11/13/17 22:00 86 11/13/17 20:41 18 11/13/17 20:00 75 11/13/17 20:00 98.7 75 13 117/65 (82) 92 11/13/17 19:00 Room Air 11/13/17 18:00 87 11/13/17 16:00 101 11/13/17 16:00 102.5 101 24 154/87 (109) 96 11/13/17 14:00 83 11/13/17 12:00 95 21 11/13/17 12:00 77 11/13/17 12:00 100.5 77 21 145/82 (103) 95 11/13/17 12:00 85 11/13/17 10:00 85 I/O 11/13/17 11/13/17 11/13/17 11/14/17 11/14/17 11/14/17 07:00 15:00 23:00 07:00 15:00 23:00 Intake Total 2220 ml 2645 ml 500 ml Output Total 600 ml 900 ml 750 ml Balance 1620 ml 1745 ml -250 ml Intake Oral 480 ml 1440 ml 400 ml IV Total 1325 ml 1205 ml 100 ml Packed Cells 400 ml Blood Product IV Normal Saline Flush 15 ml Output Urine Total 600 ml 900 ml 750 ml # Bowel Movements 0 Result Diagram: 11/14/17 0606 11/14/17 0606 Imaging Last Impressions Abdomen/Pelvis CT 11/13/17 0000 Signed Impressions: Service Date/Time: Monday, November 13, 2017 16:28 - CONCLUSION: Duodenal stent and biliary stent as described above stents obscure fine detail about the pancreas. Moderate ascites Liver metastases Isra Oliveira MD FACR Cholangiopancreatography MRI 11/12/17 0000 Signed Impressions: Service Date/Time: Sunday, November 12, 2017 20:01 - CONCLUSION: 1. Multiple lesions in the liver suspicious for metastatic disease not adequately characterized. 2. Slight ascites in the upper abdomen and cholelithiasis. 3. The bile ducts are difficult to visualize, however slight pneumobilia is present. 4. Slightly dilated pancreatic duct and the pancreas appears atrophic without a clear mass with technique. 5. May consider dedicated CT examination of the abdomen with intravenous contrast to further characterize. Tez Vergara MD Objective Remarks General: No acute distress. Heart: Regular rate and rhythm. No murmur. Lungs: Clear to auscultation bilaterally. No wheezes, rales, or rhonchi. Breathing is nonlabored. Abdomen: Soft, nontender, nondistended. Extremities: No lower extremity edema. Psych: Alert and oriented. Procedures 11/12/17 EGD Urinary Catheter: No Vascular Central Line Catheter: No A/P Assessment and Plan 1. Acute blood loss anemia secondary to GI bleed: Hemoglobin slightly decreased today. Monitor H&H closely. Transfuse if necessary. The patient has received a total of 4 units PRBCs during this hospitalization. Status post EGD, which noted gastritis as well as ulcerated tissue surrounding duodenal stent. Continue Protonix drip. Appreciate gastroenterology recommendations. No apparent active bleeding overnight. 2. Metastatic pancreatic cancer: Oncology consultation is pending. Patient has been receiving palliative chemotherapy in [place] and was scheduled for his next dose of chemotherapy tomorrow. 3. Elevated LFTs: Likely secondary to liver metastases. 4. Acute kidney injury: Resolved. 5. Fever: Patient had fever up to 102 yesterday afternoon. He was afebrile overnight. Continue Zosyn empirically. Blood cultures are pending. 6. DVT prophylaxis: SCDs. Avoid chemical prophylaxis secondary to GI bleed, anemia. 7. Palliative care consultation requested for clarification of goals of care. Brian Hoyt MD Nov 14, 2017 08:42
--- NOTE | 2017-11-14 10:28 | PD.CONS ---
Consult Service Palliative Care . Consult Requested By Dr. Hoyt . Primary Care Physician No Primary Care Physician . Reason for Consultation a. To assist with evaluation and management of symptoms including: pain, nausea, weakness b. To assist medical decision maker(s) with: better understanding of current medical conditions; weighing benefits/burdens of medical treatment options; making medical treatment decisions. . HPI History of Present Illness Mr. Mata is a 61 yo man with a known history of pancreatic cancer who is currently undergoing palliative chemotherapy status post biliary and duodenal stent placement. He presented to [facility] ED on 11/12/2017 with complaints of nausea, vomiting, hematemesis, melena and epigastric pain. Patient reported sudden onset of symptoms approximately 12 hours earlier. He endorsed chills, shortness of breath and weakness. Patient was pale and tachypneic on exam. Epigastric region was tender to palpation. Patient endorsed lightheadedness and dizziness. Additional diagnostic data: * Vital signs: Pulse 95, respirations 24, blood pressure 191/77, oxygen saturation 95% on room air and tympanic temperature of 98.4 * WBC: 9.2, hemoglobin 5.6, hematocrit 16.6, platelets 234, neutrophils 77.7% * Sodium: 139, potassium 3.9, chloride 106, carbon dioxide 23.1, glucose 137, calcium 8.5 * BUN: 16, creatinine 1.32, GFR 55 * Total bilirubin: 4.1, AST 154, ALT 107, alkaline phosphatase 1212 * Total protein 6.1, albumin 2.3 * PT: 11.6, INR 1.1, APTT 20.8 * UA-negative * Blood cultures pending Patient received Morphine 4mg, Zofran 4mg, Protonix 80mg IV and 1L NS bolus while in the ED. Hemoglobin was critically low at 5.6. He received 2 units crossmatched blood in the emergency department; he received an additional 2 units later that day. He was admitted to the ICU for further evaluation and medical management. Patient's records were requested from [facility], and gastroenterology was consulted. Dr. Moreland spoke to the patient about his CODE STATUS. Patient prefers intubation only, and he would only want to be intubated short-term. He does not desire any other aggressive interventions stating "let me go." Congruent with his wishes, patient's was made an alternate CODE STATUS, intubation only. Patient receives treatment at the [facility] in [place], [place]. He last chemotherapy had been 2 weeks prior, and [place] was [place]. Patient had initial stent placed at in [place] but it became infected and was replaced in [place] about one year ago. Patient reported previous bleeding in the past due to friable tissue near the duodenal stent. = Emergent EGD with Dr. Marie found gastritis, duodenal stent with ulcerated tissue around it, oozing but no specific bleeding site seen = A MRCP to rule out stent obstruction was degraded by motion artifact but showed liver lesions, slight ascites and pneumobilia. = CT abdomen/pelvis revealed duodenal stent and biliary stents obscure fine details about the pancreas, moderate ascites, liver metastasis. Patient had a temp of 102.5 yesterday but was afebrile overnight. WBC of 11.0. Blood and sputum cultures pending. Patient was started empiric antibiotics, Zosyn. He has received a total of 4 units packed RBCs during this hospitalization; H/H today is trending downward today at 8.0/22.8-2 units of packed red blood cells are currently on hold. The patient is on a Protonix drip. SHELLY resolving. Patient was supposed to received chemotherapy tomorrow 11/15/17 in [place]; Oncology has been consulted for recommendations. Palliative Care was consulted to assist with symptom management and to discuss with the patient/family the benefits and burdens of his current illnesses and the options regarding future care. Function/Cognitive Trajectory Patient traveled to [place] with two friends to the [place] area in order to place his house for sale. He states he had been doing relatively well prior to this most recent hospitalization. . Review of Systems Constitutional: COMPLAINS OF: Fatigue, Pain (epigastric/abdominal), Generalized weakness Cardiovascular: COMPLAINS OF: Lower Extremity Edema Gastrointestinal: COMPLAINS OF: Abdominal pain, Bloody stools, Nausea Psychiatric: COMPLAINS OF: Depression Past Family Social History Coded Allergies: No Known Allergies (Unverified , 11/12/17) Past Medical History Pancreatic cancer, currently undergoing palliative chemotherapy Hx of bilateral PE . Past Surgical History Biliary stent Duodenal stent Hemorrhoidectomy Right hand index finger tendon reconstruction . Reported Medications Oxycodone (Oxycodone HCl) 10 Mg Tab 10 Mg PO Q8HR PRN NOT TO EXCEED 3 DOSES/24HR Effexor XR 24 HR (Venlafaxine HCl) 75 Mg Cap 75 Mg PO DAILY Creon (Pancrelipase) 36,000-114,000-180,000 Units Cap 1 Cap PO QID BEFORE MEALS AND SNACKS Lovenox Inj (Enoxaparin Sodium) 100 Mg/Ml Syr 100 Mg SQ BID Remeron (Mirtazapine) 15 Mg Tab 7.5 Mg PO HS PRN Lasix (Furosemide) 20 Mg Tab 20 Mg PO DAILY PRN Neurontin (Gabapentin) 300 Mg Cap 300 Mg PO TID Omeprazole 20 Mg Tab 20 Mg PO BID Ambien CR (Zolpidem Tartrate) 12.5 Mg Tab 12.5 Mg PO HS PRN Carafate (Sucralfate) 1 Gram Tab 1 Gm PO QID On empty stomach Prochlorperazine Maleate 10 Mg Tab 10 Mg PO Q6H PRN Methadone (Methadone HCl) 5 Mg Tab 5 Mg PO Q8HR . Current Medications Medications (Trade) Dose Ordered Sig/Yasmeen Route Start Time Stop Time Status Last Admin Pantoprazole Sodium 80 mg/ Sodium Chloride 100 ml @ 10 mls/hr Q10H IV 11/12/17 13:12 11/14/17 06:50 Potassium Chloride 100 ml @ 50 mls/hr Q2H PRN IV 11/12/17 14:00 Potassium Chloride 100 ml @ 50 mls/hr Q2H PRN IV 11/12/17 14:00 (K-Lyte Cl Eff) 50 meq UNSCH PRN PO 11/12/17 14:00 Potassium Chloride 100 ml @ 25 mls/hr UNSCH PRN IV 11/12/17 14:00 Potassium Chloride 100 ml @ 50 mls/hr Q2H PRN IV 11/12/17 14:00 Magnesium Sulfate 4 gm/Sodium Chloride 100 ml @ 50 mls/hr UNSCH PRN IV 11/12/17 14:00 (Mag-Ox) 800 mg UNSCH PRN PO 11/12/17 14:00 Magnesium Sulfate 2 gm/Sodium Chloride 100 ml @ 50 mls/hr UNSCH PRN IV 11/12/17 14:00 (K-Phos) 2,000 mg Q4H PRN PO 11/12/17 14:00 Sodium Phosphate 30 mmol/Sodium Chloride 250 ml @ 42 mls/hr UNSCH PRN IV 11/12/17 14:00 (K-Phos) 2,000 mg UNSCH PRN PO/TUBE 11/12/17 14:00 Potassium Phosphate 30 mmol/ Sodium Chloride 260 ml @ 42 mls/hr UNSCH PRN IV 11/12/17 14:00 (Zofran Inj) 4 mg Q6H PRN IV PUSH 11/12/17 14:00 11/13/17 12:13 (Duoneb Neb) 1 ampule Q2HR NEB PRN INH 11/12/17 14:00 Miscellaneous Information 1 [id number] XX 11/12/17 14:00 (Chlorhexidine 2% Cloth) 3 pack Taper DAILY@04 TOP 11/13/17 04:00 11/09/18 03:59 11/14/17 04:00 (Chlorhexidine 2% Cloth) 3 pack UNSCH PRN TOP 11/12/17 14:00 Sodium Chloride 1,000 ml @ 75 mls/hr [id number] IV 11/12/17 14:15 11/13/17 22:56 (Dilaudid Pf Inj) 1 mg Q3H PRN IV PUSH 11/12/17 14:15 11/14/17 04:45 Piperacillin Sod/ Tazobactam Sod 100 ml @ 200 mls/hr Q6H IV 11/13/17 18:00 11/14/17 04:45 . Family History Patient's uncle had colon cancer . Substance Use Tobacco: None known Alcohol: None known Prescription med abuse: Illicits: Patient endorses infrequent use of marijuana . Psychosocial History Patient is originally from [place], [place] but spends some of the winter in [place] every year. He recently traveled with 2 of his friends down to the [facility] in order to place his house for sale. He is . 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 Patient has 3 children, 2 boys and a girl. His children are 16yo, 18yo and 20yo. . Spiritual/Cultural Factors Jewish krista . Living Will: Completed, but not made available Health Care Surrogate: Copy in medical record Date completed: 11/14/2017 . Health Care Surrogate(s): Patient designates his sister (Rachelle Mata) as his healthcare surrogate decision maker. . Documented care wishes: Patient states he has completed a written advanced directives at the [facility] in [place], [place]. Contacted medical records on 11/14/17 at [phone], awaiting faxed copies of completed written advanced directives. . Today's verbally stated goals: Patient's primary goal is to be stabilized and discharged from the hospital as soon as possible so he can return to his home institution to receive further treatment. . Family/friends goals: No family or friends present . Ethical and Legal Issues No known ethical or legal issues at this time. Physical Exam Vital Signs Date Time Temp Pulse Resp B/P (MAP) Pulse Ox O2 Delivery O2 Flow Rate FiO2 11/14/17 06:00 72 11/14/17 04:00 69 11/14/17 04:00 98.8 69 12 128/76 (93) 94 11/14/17 02:00 65 11/14/17 00:00 67 11/14/17 00:00 98.8 67 14 129/77 (94) 96 11/13/17 22:00 86 11/13/17 20:41 18 11/13/17 20:00 75 11/13/17 20:00 98.7 75 13 117/65 (82) 92 11/13/17 19:00 Room Air 11/13/17 18:00 87 11/13/17 16:00 101 11/13/17 16:00 102.5 101 24 154/87 (109) 96 11/13/17 14:00 83 11/13/17 12:00 95 21 11/13/17 12:00 77 11/13/17 12:00 100.5 77 21 145/82 (103) 95 11/13/17 12:00 85 11/13/17 10:00 85 . Exam CONSTITUTIONAL/GENERAL: This is a middle aged male in no apparent distress. TUBES/LINES/DRAINS:PIV x 2 SKIN: Generalized pallor. No wounds seen anteriorly. Skin temperature appropriate. Not diaphoretic. HEAD: Atraumatic. Normocephalic. EYES: Pupils equal and round and reactive. Extraocular motions intact. No scleral icterus. No injection or drainage. Fundi not examined. ENT: Hearing grossly normal. Nose without bleeding or purulent drainage. NECK: Trachea midline. Supple, nontender. No palpable thyroid enlargement or nodularity. CARDIOVASCULAR: Regular rate and rhythm without murmurs, gallops, or rubs. No JVD. Peripheral pulses symmetric. RESPIRATORY/CHEST: Symmetric, unlabored respirations. Clear to auscultation. Breath sounds equal bilaterally. No wheezes, rales, or rhonchi. GASTROINTESTINAL: Abdomen slightly firm, nontender. No guarding. Bowel sounds present. GENITOURINARY: Without palpable bladder distension. MUSCULOSKELETAL: Extremities without clubbing or cyanosis. Hands swollen; 2+ edema in feet bilaterally LYMPHATICS: No palpable cervical or supraclavicular adenopathy. NEUROLOGICAL: Awake and alert. Motor and sensory grossly within normal limits. Follows commands. Cognitively sharp. Moves all extremities. PSYCHIATRIC: No obvious anxiety/depression. No apparent hallucinations or other psychotic thought process. . Diagnostic Tests Laboratory Laboratory Tests Test 11/12/17 12:05 11/12/17 13:49 11/12/17 15:15 11/12/17 17:00 White Blood Count 9.2 TH/MM3 (4.0-11.0) Red Blood Count 1.68 MIL/MM3 (4.50-5.90) Hemoglobin 5.6 GM/DL (13.0-17.0) 6.7 GM/DL (13.0-17.0) Hematocrit 16.6 % (39.0-51.0) 19.5 % (39.0-51.0) Mean Corpuscular Volume 99.0 FL (80.0-100.0) Mean Corpuscular Hemoglobin 33.5 PG (27.0-34.0) Mean Corpuscular Hemoglobin Concent 33.8 % (32.0-36.0) Red Cell Distribution Width 25.5 % (11.6-17.2) Platelet Count 234 TH/MM3 (150-450) Mean Platelet Volume 9.6 FL (7.0-11.0) Neutrophils (%) (Auto) 77.7 % (16.0-70.0) Lymphocytes (%) (Auto) 12.3 % (9.0-44.0) Monocytes (%) (Auto) 9.8 % (0.0-8.0) Eosinophils (%) (Auto) 0.1 % (0.0-4.0) Basophils (%) (Auto) 0.1 % (0.0-2.0) Neutrophils # (Auto) 7.2 TH/MM3 (1.8-7.7) Lymphocytes # (Auto) 1.1 TH/MM3 (1.0-4.8) Monocytes # (Auto) 0.9 TH/MM3 (0-0.9) Eosinophils # (Auto) 0.0 TH/MM3 (0-0.4) Basophils # (Auto) 0.0 TH/MM3 (0-0.2) CBC Comment AUTO DIFF Differential Total Cells Counted 100 Neutrophils % (Manual) 84 % (16-70) Band Neutrophils % 6 % (0-6) Lymphocytes % 4 % (9-44) Monocytes % 5 % (0-8) Neutrophils # (Manual) 8.3 TH/MM3 (1.8-7.7) Differential Comment FINAL DIFF MANUAL Blastocytes 1 % (0-0) Platelet Estimate NORMAL (NORMAL) Platelet Morphology Comment NORMAL (NORMAL) Tear Drop Cells 1+ (NORMAL) Prothrombin Time 11.6 SEC (9.8-11.6) Prothromb Time International Ratio 1.1 RATIO Activated Partial Thromboplast Time 20.8 SEC (24.3-30.1) Blood Urea Nitrogen 16 MG/DL (7-18) Creatinine 1.32 MG/DL (0.60-1.30) Random Glucose 137 MG/DL (74-106) Total Protein 6.1 GM/DL (6.4-8.2) Albumin 2.3 GM/DL (3.4-5.0) Calcium Level 8.5 MG/DL (8.5-10.1) Alkaline Phosphatase 1212 U/L (45-117) Aspartate Amino Transf (AST/SGOT) 154 U/L (15-37) Alanine Aminotransferase (ALT/SGPT) 107 U/L (12-78) Total Bilirubin 4.1 MG/DL (0.2-1.0) Sodium Level 139 MEQ/L (136-145) Potassium Level 3.9 MEQ/L (3.5-5.1) Chloride Level 106 MEQ/L (98-107) Carbon Dioxide Level 23.1 MEQ/L (21.0-32.0) Anion Gap 10 MEQ/L (5-15) Estimat Glomerular Filtration Rate 55 ML/MIN (>89) Lipase 18 U/L (73-393) Urine Color DARK-YELLOW (YELLW/STRAW) Urine Turbidity CLEAR (CLEAR) Urine pH 7.5 (5.0-8.5) Urine Specific [place] 1.015 (1.002-1.035) Urine Protein 30 mg/dL (NEG-TRACE) Urine Glucose (UA) NEG mg/dL (NEG) Urine Ketones NEG mg/dL (NEG) Urine Occult Blood SMALL (NEG) Urine Nitrite NEG (NEG) Urine Bilirubin SMALL (NEG) Urine Urobilinogen 4.0 MG/DL (LESS THAN Urine Leukocyte Esterase NEG (NEG) Urine RBC 3 /hpf (0-3) Urine WBC LESS THAN 1 /hpf (0-5) Urine Squamous Epithelial Cells <1 /hpf (0-5) Urine Bacteria RARE /hpf (NONE) Microscopic Urinalysis Comment CULT NOT INDICATED Nasal Screen MRSA (PCR) MRSA NOT DETECTED (NOT Test 11/13/17 01:13 11/13/17 06:52 11/13/17 11:54 11/13/17 17:46 Hemoglobin 9.2 GM/DL (13.0-17.0) 8.6 GM/DL (13.0-17.0) 9.3 GM/DL (13.0-17.0) 8.8 GM/DL (13.0-17.0) Hematocrit 27.1 % (39.0-51.0) 25.4 % (39.0-51.0) 27.5 % (39.0-51.0) 25.4 % (39.0-51.0) White Blood Count 13.1 TH/MM3 (4.0-11.0) Red Blood Count 2.80 MIL/MM3 (4.50-5.90) Mean Corpuscular Volume 90.9 FL (80.0-100.0) Mean Corpuscular Hemoglobin 30.7 PG (27.0-34.0) Mean Corpuscular Hemoglobin Concent 33.8 % (32.0-36.0) Red Cell Distribution Width 19.3 % (11.6-17.2) Platelet Count 168 TH/MM3 (150-450) Mean Platelet Volume 9.7 FL (7.0-11.0) Blood Urea Nitrogen 15 MG/DL (7-18) Creatinine 1.16 MG/DL (0.60-1.30) Random Glucose 132 MG/DL (74-106) Calcium Level 7.7 MG/DL (8.5-10.1) Sodium Level 140 MEQ/L (136-145) Potassium Level 4.2 MEQ/L (3.5-5.1) Chloride Level 109 MEQ/L (98-107) Carbon Dioxide Level 26.2 MEQ/L (21.0-32.0) Anion Gap 5 MEQ/L (5-15) Estimat Glomerular Filtration Rate 64 ML/MIN (>89) Total Bilirubin 5.6 MG/DL (0.2-1.0) Direct Bilirubin 5.0 MG/DL (0.0-0.2) Indirect Bilirubin 0.6 MG/DL (0.0-0.8) Aspartate Amino Transf (AST/SGOT) 75 U/L (15-37) Alanine Aminotransferase (ALT/SGPT) 77 U/L (12-78) Alkaline Phosphatase 920 U/L (45-117) Total Protein 5.4 GM/DL (6.4-8.2) Albumin 1.9 GM/DL (3.4-5.0) Test 11/14/17 00:08 11/14/17 06:06 Hemoglobin 8.8 GM/DL (13.0-17.0) 8.0 GM/DL (13.0-17.0) Hematocrit 25.8 % (39.0-51.0) 22.8 % (39.0-51.0) White Blood Count 11.0 TH/MM3 (4.0-11.0) Red Blood Count 2.51 MIL/MM3 (4.50-5.90) Mean Corpuscular Volume 90.9 FL (80.0-100.0) Mean Corpuscular Hemoglobin 31.9 PG (27.0-34.0) Mean Corpuscular Hemoglobin Concent 35.1 % (32.0-36.0) Red Cell Distribution Width 19.6 % (11.6-17.2) Platelet Count 185 TH/MM3 (150-450) Mean Platelet Volume 9.1 FL (7.0-11.0) Neutrophils (%) (Auto) 85.2 % (16.0-70.0) Lymphocytes (%) (Auto) 5.5 % (9.0-44.0) Monocytes (%) (Auto) 8.9 % (0.0-8.0) Eosinophils (%) (Auto) 0.1 % (0.0-4.0) Basophils (%) (Auto) 0.3 % (0.0-2.0) Neutrophils # (Auto) 9.4 TH/MM3 (1.8-7.7) Lymphocytes # (Auto) 0.6 TH/MM3 (1.0-4.8) Monocytes # (Auto) 1.0 TH/MM3 (0-0.9) Eosinophils # (Auto) 0.0 TH/MM3 (0-0.4) Basophils # (Auto) 0.0 TH/MM3 (0-0.2) CBC Comment AUTO DIFF Differential Comment AUTO DIFF CONFIRMED Platelet Estimate NORMAL (NORMAL) Platelet Morphology Comment NORMAL (NORMAL) Tear Drop Cells 1+ (NORMAL) Ovalocytes 1+ (NORMAL) Blood Urea Nitrogen 17 MG/DL (7-18) Creatinine 1.04 MG/DL (0.60-1.30) Random Glucose 109 MG/DL (74-106) Total Protein 4.7 GM/DL (6.4-8.2) Albumin 1.6 GM/DL (3.4-5.0) Calcium Level 7.9 MG/DL (8.5-10.1) Phosphorus Level 3.4 MG/DL (2.5-4.9) Magnesium Level 1.9 MG/DL (1.5-2.5) Alkaline Phosphatase 641 U/L (45-117) Aspartate Amino Transf (AST/SGOT) 33 U/L (15-37) Alanine Aminotransferase (ALT/SGPT) 45 U/L (12-78) Total Bilirubin 3.4 MG/DL (0.2-1.0) Sodium Level 136 MEQ/L (136-145) Potassium Level 3.9 MEQ/L (3.5-5.1) Chloride Level 105 MEQ/L (98-107) Carbon Dioxide Level 23.6 MEQ/L (21.0-32.0) Anion Gap 7 MEQ/L (5-15) Estimat Glomerular Filtration Rate 72 ML/MIN (>89) . Result Diagram: 11/14/1760511/14/17 0606 Microbiology Microbiology Date/Time Source Procedure Growth Status 11/13/17 20:30 Blood Peripheral Aerobic Blood Culture Pending Received 11/13/17 20:30 Blood Peripheral Anaerobic Blood Culture Pending Received 11/13/17 20:20 Blood Peripheral Aerobic Blood Culture Pending Received 11/13/17 20:20 Blood Peripheral Anaerobic Blood Culture Pending Received . Imaging Last 72 hours Impressions Abdomen/Pelvis CT 11/13/17 0000 Signed Impressions: Service Date/Time: Monday, November 13, 2017 16:28 - CONCLUSION: Duodenal stent and biliary stent as described above stents obscure fine detail about the pancreas. Moderate ascites Liver metastases Isra Oliveira MD FACR Cholangiopancreatography MRI 11/12/17 0000 Signed Impressions: Service Date/Time: Sunday, November 12, 2017 20:01 - CONCLUSION: 1. Multiple lesions in the liver suspicious for metastatic disease not adequately characterized. 2. Slight ascites in the upper abdomen and cholelithiasis. 3. The bile ducts are difficult to visualize, however slight pneumobilia is present. 4. Slightly dilated pancreatic duct and the pancreas appears atrophic without a clear mass with technique. 5. May consider dedicated CT examination of the abdomen with intravenous contrast to further characterize. Tez Vergara MD . Patient/Family Conference Present at Family Conference: Met with patient at bedside. Family Conference Location: Bedside Issues Discussed: * Palliative care role, purpose, approach * Additional medical, psychosocial, and spiritual history * Patients general health, functional status, and cognitive changes in the months leading up to the current hospitalization * Patient/family understanding of the current medical problems * Patient/family understanding of prognosis * Patients goals of care as best understood from advance directives and/or conversations and/or values * Current medical treatment options and benefits/burdens of those options * Likely scenarios comparing ongoing aggressive care with a transition to comfort measures only * Questions answered to the best of my ability * Palliative care contact information provided . Assessment and Plan Disease Oriented Problem List: (1) Personal history of pulmonary embolism (2) Anemia Comment: Secondary to GI bleed (3) GIB (gastrointestinal bleeding) (4) GI bleed (5) Pancreatic cancer metastasized to liver (6) SHELLY (acute kidney injury) Comment: Resolving Symptom Scale: (1) Pain 0-10 Scale: Unable to quantify (2) Nausea 0-10 Scale: Unable to quantify (3) Weakness 0-10 Scale: Unable to quantify Pertinent Non-Medical Issues Psychosocial: Spiritual: Legal: Ethical issues impacting care: Important Contacts Rachelle Adolfo, sister: [phone] London Le, friend: [phone] Prognosis Patient with pancreatic cancer who is currently undergoing palliative chemotherapy status post biliary and duodenal stent placement. Currently hospitalized secondary to GIB; patient was hospitalized last year with an upper GI bleed due to duodenal stent erosion.states this happened previously last year due to friable tissue at the stent site. Patient describes his functional status prior to this recent hospitalization as "pretty good." Patient's condition is terminal and remains high risk for continued complications and setbacks. . Code Status: Full Code Plan * ALTERNATE CODE- intubation only * Decision-making: Patient currently has insight and judgment related to his medical conditions. He designates his sister (Rachelle Mata) as his healthcare surrogate decision maker. * Patient states he has completed a written advanced directives at the [facility] in [place], [place]. Contacted medical records at [phone] , awaiting faxed copies of completed written advanced directives. * Goals remain aggressive. Patient's primary goal at this time is to return to [facility] as he is scheduled to be there tomorrow 11/15/2017 to receive his chemotherapy. Patient is here with his friend (London Le) who he plans to drive home with when he is stable. * Discussed patient with bedside nurse (Imani) and Dr. Hoyt * Palliative care contact information provided to the patient * Symptom management: = Pain: Abdominal pain associated with pancreatic cancer. At home patient takes methadone 5mg PO q8 hours and oxycodone 10mg PO q8 hours PRN. Receiving hydromorphone 1 mg q3 hours PRN. 24 hour PRN requirements = 5mg hydromorphone. Will need to transition back to oral pain medication prior to discharge; patient now tolerating PO intake. = Nausea: Patient having ongoing, intermittent nausea which is being managed with PRN Zofran q6 hours. Patient has required 1 dose in the past 24 hours. = Weakness: Weakness related to anemia status post GI bleed. Additional contributing factors may include disease progression, nausea, decreased nutritional intake. May consider consulting PT prior to discharge. * Palliative care will continue to follow this patient throughout his hospitalization to establish trust, assist with symptom management and clarification of medical treatment goals. Thank you for the opportunity to participate in the care of Mr. Mata. . Attestation To help prompt me to consider important information that might be impacting today's encounter and assessment, information from prior notes written by myself or my colleagues may have been "brought forward" into today's note. My signature on this note, however, is an attestation that I personally performed the exam, history, and/or decision-making noted today, and, unless otherwise indicated, the interactions with patient, family, and staff as well as the review of records all occurred today. I also attest that the listed assessment and stated plan reflect my best clinical judgment today based on the combination of historical information, prior notes, and today's exam/ interactions. When time spent is documented, it refers only to time spent today by the signer, or if indicated, combined time spent today by collaborating physician/nurse practitioner. . Luz Martinez Nov 14, 2017 10:28
--- NOTE | 2017-11-14 10:38 | MB ---
cc: JOSE GARCIA MD DATE OF CONSULTATION 11/14/2017 DATE OF 1955 REASON FOR CONSULTATION 1. Metastatic pancreatic cancer 2. Currently receiving chemotherapy with gemcitabine. HISTORY OF PRESENT ILLNESS Mr. Mata is a 61-year-old gentleman with a history of metastatic pancreatic cancer. He follows with an oncologist up in [facility] in [place]. He reports that he had previously received FOLFIRINOX chemotherapy. She was since placed on gemcitabine and Abraxane and currently he is on single agent gemcitabine. He reports that his last dose was approximately two weeks ago. From medical records that we have obtained, he was admitted in October of 2017 from October 16 through October 18 for an upper GI bleed due to duodenal stent erosion. EGD at that time showed friable tissue, but no active bleeding. He was on full intensity anticoagulation at that time for pulmonary embolism. He was transfused four units of packed red blood cells and then his hemoglobin was stable above 10. He was found to have bilateral pulmonary emboli in March of 2016 and was treated with Lovenox up until last month where he had the GI bleed. He reports that he initially came to the hospital after he developed weakness and fatigue which was uncharacteristic for him. He reports that he traveled with two of his friends down to the [place] area in order to place his house up for sale. When he was admitted to the hospital for his weakness, he was found to have a hemoglobin of 5.6. He has been transfused. The highest his hemoglobin has been was 9.3. The most recent value was 8. He reports that he had a bloody bowel movement again this morning. The remainder of the CBC including white blood count of 11, and a platelet count of 185,000. Creatinine 1.04. He has had some elevated bilirubin values with total bilirubin today of 3.4 and a total bilirubin on admission of 4.1, the highest value was 5.6. AST and ALT were elevated on admission up to 154 and 107 respectively. Yesterday these values were 75 and 77 and today they are 33 and 45. He does have an elevated alkaline phosphatase that was 1212 on admission, then dropped down to 920 and today is 641. He has a low albumin of 1.6 and a low total protein of 4.7. He has been transfused six units of packed red blood cells since he has been here. He has also undergone an EGD by our gastroenterology team which revealed mild gastritis in the gastric duodenum, duodenal stent extending into the pylorus, debris and ulceration seen around the stent, significant growth of tissue through the stent, some oozing seen from extremely friable mucosa around the stent. No single site of bleeding identified. PAST MEDICAL HISTORY Metastatic pancreatic cancer PAST SURGICAL HISTORY 1. Stent placement 2. Hemorrhoidectomy 3. Right hand index finger tendon reconstruction SOCIAL HISTORY Denies tobacco or alcohol use. Uncle with colon cancer. FAMILY HISTORY Family member with colon cancer ROS as per HPI all other ROS negative PHYSICAL EXAM GENERAL: This is a well-developed, well-nourished man in no distress. HEAD: Hair thinning, atraumatic. EYES: Mild scleral icterus. EYES, EARS, NOSE AND THROAT: Oropharynx clear. NECK: Supple with no lymphadenopathy. CARDIOVASCULAR: Regular rate and rhythm. No murmurs. RESPIRATORY: Clear to auscultation bilaterally. No inspiratory . ABDOMEN: Mild distention. Tenderness to palpation in the periumbilical region of the abdomen. EXTREMITIES: Bilateral lower extremity edema. NEUROLOGIC: Grossly nonfocal. PSYCH: Appropriate mood and affect. ASSESSMENT AND PLAN 1. Metastatic pancreatic cancer currently receiving palliative chemotherapy with gemcitabine under the direction of a gas refrigerator servicer/oncologist up in [place], [place]. His goal is to be stabilized, discharge from the hospital and be able to go back up to his home institution to receive further therapy and further care. 2. Anemia due to acute blood loss due to GI bleed from duodenal stent erosion. Continue to trend H&H and transfuse as needed. two units of packed red blood cells are currently on hold. He is on a Protonix drip. Gastroenterology team is following Closely. 3. Elevated LFT's of uncertain etiology at this point in time. He does have known liver metastases and he also has been receiving gemcitabine chemotherapy which can be hepatotoxic down trending. Continue to follow. 4. Duodenal stent with elevated bilirubin and questionable erosion. Further management per gastroenterology team. Inpatient oncology service will continue to follow. MD ELROY Flores/ARIADNA /10:01 AM 10:13 AM MTDD
[2017-11-14 12:40] LABS: HEMATOCRIT 24.4 % (39.0-51.0); HEMOGLOBIN 8.3 GM/DL (13.0-17.0)
[2017-11-14] MEDS: SODIUM CHLOR 0.9% 1000 ML INJ 1,000 ML IV SCH (14:41)
--- NOTE | 2017-11-14 15:09 | HHI.GIFU ---
Subjective Remarks Pt resting in bed, reports black BM this morning. RN confirms. Drop in H/H this morning. Pt denies emesis, abdominal pain. Some nausea this morning, now resolved. States this has been the first day his appetite has been good, finished entire lunch tray. (Rachel Dumont) Objective Vitals I&O Vital Signs Date Time Temp Pulse Resp B/P (MAP) Pulse Ox O2 Delivery O2 Flow Rate FiO2 11/14/17 10:09 97 11/14/17 10:00 90 11/14/17 09:00 93 11/14/17 08:00 71 11/14/17 08:00 98.5 71 10 147/75 (99) 95 11/14/17 07:00 70 11/14/17 07:00 98 Room Air 11/14/17 06:00 72 11/14/17 04:00 69 11/14/17 04:00 98.8 69 12 128/76 (93) 94 11/14/17 02:00 65 11/14/17 00:00 67 11/14/17 00:00 98.8 67 14 129/77 (94) 96 11/13/17 22:00 86 11/13/17 20:41 18 11/13/17 20:00 75 11/13/17 20:00 98.7 75 13 117/65 (82) 92 11/13/17 19:00 Room Air 11/13/17 18:00 87 11/13/17 16:00 101 11/13/17 16:00 102.5 101 24 154/87 (109) 96 I/O 11/13/17 11/13/17 11/13/17 11/14/17 11/14/17 11/14/17 07:00 15:00 23:00 07:00 15:00 23:00 Intake Total 2220 ml 2645 ml 500 ml Output Total 600 ml 900 ml 750 ml Balance 1620 ml 1745 ml -250 ml Intake Oral 480 ml 1440 ml 400 ml IV Total 1325 ml 1205 ml 100 ml Packed Cells 400 ml Blood Product IV Normal Saline Flush 15 ml Output Urine Total 600 ml 900 ml 750 ml # Bowel Movements 0 Laboratory Laboratory Tests Test 11/13/17 17:46 11/14/17 00:08 11/14/17 06:06 11/14/17 12:25 Hemoglobin 8.8 8.8 8.0 8.3 Hematocrit 25.4 25.8 22.8 24.4 White Blood Count 11.0 Red Blood Count 2.51 Mean Corpuscular Volume 90.9 Mean Corpuscular Hemoglobin 31.9 Mean Corpuscular Hemoglobin Concent 35.1 Red Cell Distribution Width 19.6 Platelet Count 185 Mean Platelet Volume 9.1 Neutrophils (%) (Auto) 85.2 Lymphocytes (%) (Auto) 5.5 Monocytes (%) (Auto) 8.9 Eosinophils (%) (Auto) 0.1 Basophils (%) (Auto) 0.3 Neutrophils # (Auto) 9.4 Lymphocytes # (Auto) 0.6 Monocytes # (Auto) 1.0 Eosinophils # (Auto) 0.0 Basophils # (Auto) 0.0 CBC Comment AUTO DIFF Differential Comment AUTO DIFF CONFIRMED Platelet Estimate NORMAL Platelet Morphology Comment NORMAL Tear Drop Cells 1+ Ovalocytes 1+ Blood Urea Nitrogen 17 Creatinine 1.04 Random Glucose 109 Total Protein 4.7 Albumin 1.6 Calcium Level 7.9 Phosphorus Level 3.4 Magnesium Level 1.9 Alkaline Phosphatase 641 Aspartate Amino Transf (AST/SGOT) 33 Alanine Aminotransferase (ALT/SGPT) 45 Total Bilirubin 3.4 Sodium Level 136 Potassium Level 3.9 Chloride Level 105 Carbon Dioxide Level 23.6 Anion Gap 7 Estimat Glomerular Filtration Rate 72 Date/Time Source Procedure Growth Status 11/13/17 20:30 Blood Peripheral Aerobic Blood Culture - Preliminary NO GROWTH IN 1 DAY Resulted 11/13/17 20:30 Blood Peripheral Anaerobic Blood Culture - Preliminary NO GROWTH IN 1 DAY Resulted Imaging Last Impressions Abdomen/Pelvis CT 11/13/17 0000 Signed Impressions: Service Date/Time: Monday, November 13, 2017 16:28 - CONCLUSION: Duodenal stent and biliary stent as described above stents obscure fine detail about the pancreas. Moderate ascites Liver metastases Isra Oliveira MD FACR Cholangiopancreatography MRI 11/12/17 0000 Signed Impressions: Service Date/Time: Sunday, November 12, 2017 20:01 - CONCLUSION: 1. Multiple lesions in the liver suspicious for metastatic disease not adequately characterized. 2. Slight ascites in the upper abdomen and cholelithiasis. 3. The bile ducts are difficult to visualize, however slight pneumobilia is present. 4. Slightly dilated pancreatic duct and the pancreas appears atrophic without a clear mass with technique. 5. May consider dedicated CT examination of the abdomen with intravenous contrast to further characterize. Tez Vergara MD Physical Exam HEENT: Normocephalic; atraumatic; + icterus CHEST: CTA CARDIAC: RRR ABDOMEN: Distended, firm, nontender, bowel sounds active EXTREMITIES: No clubbing, cyanosis, + BLE edema. SKIN: Normal; no rash; + jaundice. WAREHOUSE FOREMAN: No focal deficits; alert and oriented times three. (Rachel Dumont [facility]) Assessment and Plan Plan - Acute upper GI bleed- one day history of nausea, vomiting, hematemesis, melena, epigastric pain. He denies alcohol, NSAIDs or ASA. Hgb is 5.6. Hemodynamically stable Last bleeding episodes were last night. Currently feeling nauseous, still with epigastric pain. He is being transfused, on ppi drip - PMH of stage IV pancreatic cancer with mets to the liver under going chemo, status post biliary and duodenal stent that was placed in January of last yr Patient had initial stent placed at in [place] but got infected and was exchanged in [place], LFTs elevated. Not sure of base line, no previous visits. Patient is under the care of oncology at [facility] in [place], [place], 11/13/17 - pain, nausea improved. s/p EGD found gastritis, duodenal stent with ulcerated tissue around it, oozing but no specific bleeding site seen MRCP degraded by motion artifact, showed liver lesions, slight ascites, pneumobilia. mild decrease hgb today but no obvious bleeding (2/) Reports black stools this morning. Slight drop in H/H currently 8.3/24.4 yesterday was 9.3/27.5. Has not received PRBCs since Nov 12. Pt evaluated by palliative care who states goals remain aggressive and pts primary goal is to return to [place] as he is scheduled for palliative chemotherapy tomorrow. Pt remains on Protonix gtt. CT abdomen and pelvis W IV contrast noted (11/13) --> Duodenal stent and biliary stent as described above stents obscure fine detail about the pancreas. Moderate ascites. Liver metastases. Plan: - IR consult for possible angiogram - Monitor H/H closely - Continue Protonix gtt - Supportive care - Further recommendations to follow based on clinical course Pt has been seen and examined by myself and Dr. Bonilla and this note is written on her behalf (Rachel Dumnot) Physician Comments seen, examined agree with above will think about angiogram with embolization (Zhane Bonilla MD) Rachel Dumont Nov 14, 2017 15:09 Zhane Bonilla MD Nov 14, 2017 17:25
[2017-11-15] VITALS (18 sets, daily range): BP systolic 108–158; BP diastolic 57–93; PULSE 61–73; RESP 11–16; TEMP 97.7–98.9; O2SAT 95–98
[2017-11-15] MEDS: HYDROmorphone HCL PF 2 MG/ML VIAL IV PUSH PRN ×5 (00:37→20:24)
[2017-11-15] MEDS: ONDANSETRON HCL 4 MG/2 ML VIAL IV PUSH PRN (02:38)
[2017-11-15] MEDS: SODIUM CHLOR 0.9% 1000 ML INJ 1,000 ML IV SCH ×2 (02:38→18:31)
[2017-11-15] MEDS: PANTOPRAZOLE INJ 80 MG in SODIUM CHLORIDE 0.9% INJ 100 ML IV SCH ×3 (02:38→23:27)
[2017-11-15] MEDS: CHLORHEXIDINE GLUCONATE 2 % 1 PACK (2 CLOTHS) TOP SCH ×2 (03:41→23:27)
[2017-11-15 05:30] LABS: HEMATOCRIT 22.1 % (39.0-51.0); HEMOGLOBIN 7.9 GM/DL (13.0-17.0); MEAN CORPUSCULAR HEMOGLOBIN 34.5 PG (27.0-34.0); MEAN CORPUSCULAR HGB CONC 35.9 % (32.0-36.0); MEAN PLATELET VOLUME 9.4 FL (7.0-11.0); PLATELET COUNT 241 TH/MM3 (150-450); RED CELL DISTRIBUTION WIDTH 20.6 % (11.6-17.2); WHITE BLOOD COUNT 8.3 TH/MM3 (4.0-11.0)
[2017-11-15 05:52] LABS: BICARBONATE 23.1 MEQ/L (21.0-32.0); CALCIUM 7.5 MG/DL (8.5-10.1); CREATININE 1.04 MG/DL (0.60-1.30)
[2017-11-15] MEDS: PIPERACIL-TAZO 4.5 GM PREMIX 100 ML IV SCH ×5 (06:00→23:27)
--- NOTE | 2017-11-15 09:10 | HHI.PR ---
Subjective Remarks Follow up GI bleed, anemia. Patient reports one bowel movement that was dark, no reported red blood. Denies chest pain, dyspnea. Had nausea this morning. Objective Vitals Vital Signs Date Time Temp Pulse Resp B/P (MAP) Pulse Ox O2 Delivery O2 Flow Rate FiO2 11/15/17 06:00 64 11/15/17 04:00 98.5 72 16 156/87 (110) 96 11/15/17 04:00 72 11/15/17 02:00 73 11/15/17 00:00 72 11/15/17 00:00 98.9 72 14 108/57 (74) 95 11/14/17 22:00 78 11/14/17 20:15 96 21 11/14/17 20:00 98.8 81 24 149/83 (105) 95 11/14/17 20:00 81 11/14/17 18:00 77 11/14/17 17:00 74 11/14/17 16:00 98.5 79 17 128/70 (89) 95 11/14/17 16:00 79 11/14/17 15:00 81 11/14/17 14:00 81 11/14/17 13:00 68 11/14/17 12:00 74 11/14/17 12:00 98.0 74 17 154/87 (109) 96 11/14/17 11:00 79 11/14/17 10:09 97 11/14/17 10:00 90 I/O 11/14/17 11/14/17 11/14/17 11/15/17 11/15/17 11/15/17 07:00 15:00 23:00 07:00 15:00 23:00 Intake Total 500 ml 1000 ml 650 ml 1680 ml Output Total 750 ml 1200 ml 700 ml Balance -250 ml 1000 ml -550 ml 980 ml Intake Oral 400 ml 350 ml 480 ml IV Total 100 ml 1000 ml 300 ml 1200 ml Output Urine Total 750 ml 1200 ml 700 ml # Bowel Movements 1 0 Result Diagram: 11/15/17 0441 11/15/17 0441 Imaging Last Impressions Abdomen/Pelvis CT 11/13/17 0000 Signed Impressions: Service Date/Time: Monday, November 13, 2017 16:28 - CONCLUSION: Duodenal stent and biliary stent as described above stents obscure fine detail about the pancreas. Moderate ascites Liver metastases Isra Oliveira MD FACR Cholangiopancreatography MRI 11/12/17 0000 Signed Impressions: Service Date/Time: Sunday, November 12, 2017 20:01 - CONCLUSION: 1. Multiple lesions in the liver suspicious for metastatic disease not adequately characterized. 2. Slight ascites in the upper abdomen and cholelithiasis. 3. The bile ducts are difficult to visualize, however slight pneumobilia is present. 4. Slightly dilated pancreatic duct and the pancreas appears atrophic without a clear mass with technique. 5. May consider dedicated CT examination of the abdomen with intravenous contrast to further characterize. Tez Vergara MD Objective Remarks General: No acute distress. Heart: Regular rate and rhythm. No murmur. Lungs: Clear to auscultation bilaterally. No wheezes, rales, or rhonchi. Breathing is nonlabored. Abdomen: Soft, nontender, nondistended. Extremities: No lower extremity edema. Psych: Alert and oriented. Procedures 11/12/17 EGD Urinary Catheter: No Vascular Central Line Catheter: No A/P Assessment and Plan 1. Acute blood loss anemia secondary to GI bleed: Hemoglobin slightly decreased. Will likely need transfusion again today. The patient has received a total of 4 units PRBCs during this hospitalization. Monitor H&H closely. Status post EGD, which noted gastritis as well as ulcerated tissue surrounding duodenal stent. Continue Protonix drip. Appreciate gastroenterology recommendations. Interventional radiology consulted for angiogram. 2. Metastatic pancreatic cancer: Oncology consultation is pending. Patient has been receiving palliative chemotherapy in [place] and wants to return there for further treatment. 3. Elevated LFTs: Likely secondary to liver metastases. 4. Acute kidney injury: Resolved. 5. Fever: Afebrile overnight. Continue Zosyn empirically. Blood cultures are negative so far. 6. DVT prophylaxis: SCDs. Avoid chemical prophylaxis secondary to GI bleed, anemia. 7. Appreciate palliative care recommendations. Brian Hoyt MD Nov 15, 2017 09:10
--- NOTE | 2017-11-15 12:49 | HHI.HCPN ---
Reason for visit a. To assist with evaluation and management of symptoms including: pain, nausea, weakness b. To assist medical decision maker(s) with: better understanding of current medical conditions; weighing benefits/burdens of medical treatment options; making medical treatment decisions. . Subjective/Interval History Mr. Mata is a 61 yo man with a known history of pancreatic cancer who is currently undergoing palliative chemotherapy status post biliary and duodenal stent placement. He presented to [facility] ED on 11/12/2017 with complaints of nausea, vomiting, hematemesis, melena and epigastric pain. Patient reported sudden onset of symptoms approximately 12 hours earlier. He endorsed chills, shortness of breath and weakness. Patient was pale and tachypneic on exam. Epigastric region was tender to palpation. Patient endorsed lightheadedness and dizziness. Follow up visit for symptom management and education of treatment goals. Patient seen and assessed in [facility], presents sitting upright in bedside chair. Alert and oriented to person, place, time and situation. Generalized pallor appreciated. Reporting pain and nausea has improved. he wants to go home ASHLEY Afebrile overnight; leukocytosis has resolved. Patient remains Zosyn empirically. Blood cultures are negative to date. Hgb this morning down to 7.9. Patient had + black stool this morning. Plan for angiogram later today. Will continue to monitor H/H and transfuse as necessary. . Advance Directives Living Will: Completed, but not made available Health Care Surrogate: Copy in medical record Advance Directive Specifics Date completed: 11/14/2017 . Health Care Surrogate(s): Patient designates his sister (Rachelle Mata) as his healthcare surrogate decision maker. . Documented care wishes: Patient states he has completed a written advanced directives at the [facility] in [place], [place]. Contacted medical records on 11/14/17 at [phone], awaiting faxed copies of completed written advanced directives. . Objective Vital Signs Date Time Temp Pulse Resp B/P (MAP) Pulse Ox O2 Delivery O2 Flow Rate FiO2 11/15/17 10:00 73 11/15/17 09:00 72 11/15/17 08:00 97.7 66 11 133/72 (92) 96 11/15/17 08:00 66 11/15/17 07:00 61 11/15/17 06:00 64 2/7/18 04:00 98.5 72 16 156/87 (110) 96 11/15/17 04:00 72 11/15/17 02:00 73 11/15/17 00:00 72 11/15/17 00:00 98.9 72 14 108/57 (74) 95 11/14/17 22:00 78 11/14/17 20:15 96 21 11/14/17 20:00 98.8 81 24 149/83 (105) 95 11/14/17 20:00 81 11/14/17 18:00 77 11/14/17 17:00 74 11/14/17 16:00 98.5 79 17 128/70 (89) 95 11/14/17 16:00 79 11/14/17 15:00 81 11/14/17 14:00 81 11/14/17 13:00 68 Intake & Output 11/15/17 11/15/17 07:00 19:00 Intake Total 1780 ml Output Total 700 ml Balance 1080 ml Intake Oral 480 ml IV Total 1300 ml Output Urine Total 700 ml # Bowel Movements 0 Physical Exam CONSTITUTIONAL/GENERAL: This is a middle aged male in no apparent distress. TUBES/LINES/DRAINS:PIV x 2 SKIN: Generalized pallor. No wounds seen anteriorly. Skin temperature appropriate. Not diaphoretic. HEAD: Atraumatic. Normocephalic. EYES: Pupils equal and round and reactive. Extraocular motions intact. No scleral icterus. No injection or drainage. Fundi not examined. ENT: Hearing grossly normal. Nose without bleeding or purulent drainage. NECK: Trachea midline. Supple, nontender. No palpable thyroid enlargement or nodularity. CARDIOVASCULAR: Regular rate and rhythm without murmurs, gallops, or rubs. No JVD. Peripheral pulses symmetric. RESPIRATORY/CHEST: Symmetric, unlabored respirations. Clear to auscultation. Breath sounds equal bilaterally. No wheezes, rales, or rhonchi. GASTROINTESTINAL: Abdomen slightly firm, nontender. No guarding. Bowel sounds present. GENITOURINARY: Without palpable bladder distension. MUSCULOSKELETAL: Extremities without clubbing or cyanosis. Hands swollen; 2+ edema in feet bilaterally LYMPHATICS: No palpable cervical or supraclavicular adenopathy. NEUROLOGICAL: Awake and alert. Motor and sensory grossly within normal limits. Follows commands. Cognitively sharp. Moves all extremities. PSYCHIATRIC: No obvious anxiety/depression. No apparent hallucinations or other psychotic thought process. . Diagnostic Tests Laboratory Laboratory Tests Test 11/12/17 13:49 11/12/17 15:15 11/12/17 17:00 11/13/17 01:13 Urine Color DARK-YELLOW (YELLW/STRAW) Urine Turbidity CLEAR (CLEAR) Urine pH 7.5 (5.0-8.5) Urine Specific [place] 1.015 (1.002-1.035) Urine Protein 30 mg/dL (NEG-TRACE) Urine Glucose (UA) NEG mg/dL (NEG) Urine Ketones NEG mg/dL (NEG) Urine Occult Blood SMALL (NEG) Urine Nitrite NEG (NEG) Urine Bilirubin SMALL (NEG) Urine Urobilinogen 4.0 MG/DL (LESS THAN Urine Leukocyte Esterase NEG (NEG) Urine RBC 3 /hpf (0-3) Urine WBC LESS THAN 1 /hpf (0-5) Urine Squamous Epithelial Cells <1 /hpf (0-5) Urine Bacteria RARE /hpf (NONE) Microscopic Urinalysis Comment CULT NOT INDICATED Nasal Screen MRSA (PCR) MRSA NOT DETECTED (NOT Hemoglobin 6.7 GM/DL (13.0-17.0) 9.2 GM/DL (13.0-17.0) Hematocrit 19.5 % (39.0-51.0) 27.1 % (39.0-51.0) Test 11/13/17 06:52 11/13/17 11:54 11/13/17 17:46 11/14/17 00:08 White Blood Count 13.1 TH/MM3 (4.0-11.0) Red Blood Count 2.80 MIL/MM3 (4.50-5.90) Hemoglobin 8.6 GM/DL (13.0-17.0) 9.3 GM/DL (13.0-17.0) 8.8 GM/DL (13.0-17.0) 8.8 GM/DL (13.0-17.0) Hematocrit 25.4 % (39.0-51.0) 27.5 % (39.0-51.0) 25.4 % (39.0-51.0) 25.8 % (39.0-51.0) Mean Corpuscular Volume 90.9 FL (80.0-100.0) Mean Corpuscular Hemoglobin 30.7 PG (27.0-34.0) Mean Corpuscular Hemoglobin Concent 33.8 % (32.0-36.0) Red Cell Distribution Width 19.3 % (11.6-17.2) Platelet Count 168 TH/MM3 (150-450) Mean Platelet Volume 9.7 FL (7.0-11.0) Blood Urea Nitrogen 15 MG/DL (7-18) Creatinine 1.16 MG/DL (0.60-1.30) Random Glucose 132 MG/DL (74-106) Calcium Level 7.7 MG/DL (8.5-10.1) Sodium Level 140 MEQ/L (136-145) Potassium Level 4.2 MEQ/L (3.5-5.1) Chloride Level 109 MEQ/L (98-107) Carbon Dioxide Level 26.2 MEQ/L (21.0-32.0) Anion Gap 5 MEQ/L (5-15) Estimat Glomerular Filtration Rate 64 ML/MIN (>89) Total Bilirubin 5.6 MG/DL (0.2-1.0) Direct Bilirubin 5.0 MG/DL (0.0-0.2) Indirect Bilirubin 0.6 MG/DL (0.0-0.8) Aspartate Amino Transf (AST/SGOT) 75 U/L (15-37) Alanine Aminotransferase (ALT/SGPT) 77 U/L (12-78) Alkaline Phosphatase 920 U/L (45-117) Total Protein 5.4 GM/DL (6.4-8.2) Albumin 1.9 GM/DL (3.4-5.0) Test 11/14/17 06:06 11/14/17 12:25 11/15/17 04:41 White Blood Count 11.0 TH/MM3 (4.0-11.0) 8.3 TH/MM3 (4.0-11.0) Red Blood Count 2.51 MIL/MM3 (4.50-5.90) 2.30 MIL/MM3 (4.50-5.90) Hemoglobin 8.0 GM/DL (13.0-17.0) 8.3 GM/DL (13.0-17.0) 7.9 GM/DL (13.0-17.0) Hematocrit 22.8 % (39.0-51.0) 24.4 % (39.0-51.0) 22.1 % (39.0-51.0) Mean Corpuscular Volume 90.9 FL (80.0-100.0) 96.0 FL (80.0-100.0) Mean Corpuscular Hemoglobin 31.9 PG (27.0-34.0) 34.5 PG (27.0-34.0) Mean Corpuscular Hemoglobin Concent 35.1 % (32.0-36.0) 35.9 % (32.0-36.0) Red Cell Distribution Width 19.6 % (11.6-17.2) 20.6 % (11.6-17.2) Platelet Count 185 TH/MM3 (150-450) 241 TH/MM3 (150-450) Mean Platelet Volume 9.1 FL (7.0-11.0) 9.4 FL (7.0-11.0) Neutrophils (%) (Auto) 85.2 % (16.0-70.0) Lymphocytes (%) (Auto) 5.5 % (9.0-44.0) Monocytes (%) (Auto) 8.9 % (0.0-8.0) Eosinophils (%) (Auto) 0.1 % (0.0-4.0) Basophils (%) (Auto) 0.3 % (0.0-2.0) Neutrophils # (Auto) 9.4 TH/MM3 (1.8-7.7) Lymphocytes # (Auto) 0.6 TH/MM3 (1.0-4.8) Monocytes # (Auto) 1.0 TH/MM3 (0-0.9) Eosinophils # (Auto) 0.0 TH/MM3 (0-0.4) Basophils # (Auto) 0.0 TH/MM3 (0-0.2) CBC Comment AUTO DIFF Differential Comment AUTO DIFF CONFIRMED Platelet Estimate NORMAL (NORMAL) Platelet Morphology Comment NORMAL (NORMAL) Tear Drop Cells 1+ (NORMAL) Ovalocytes 1+ (NORMAL) Blood Urea Nitrogen 17 MG/DL (7-18) 13 MG/DL (7-18) Creatinine 1.04 MG/DL (0.60-1.30) 1.04 MG/DL (0.60-1.30) Random Glucose 109 MG/DL (74-106) 82 MG/DL (74-106) Total Protein 4.7 GM/DL (6.4-8.2) Albumin 1.6 GM/DL (3.4-5.0) Calcium Level 7.9 MG/DL (8.5-10.1) 7.5 MG/DL (8.5-10.1) Phosphorus Level 3.4 MG/DL (2.5-4.9) Magnesium Level 1.9 MG/DL (1.5-2.5) Alkaline Phosphatase 641 U/L (45-117) Aspartate Amino Transf (AST/SGOT) 33 U/L (15-37) Alanine Aminotransferase (ALT/SGPT) 45 U/L (12-78) Total Bilirubin 3.4 MG/DL (0.2-1.0) Sodium Level 136 MEQ/L (136-145) 139 MEQ/L (136-145) Potassium Level 3.9 MEQ/L (3.5-5.1) 3.5 MEQ/L (3.5-5.1) Chloride Level 105 MEQ/L (98-107) 107 MEQ/L (98-107) Carbon Dioxide Level 23.6 MEQ/L (21.0-32.0) 23.1 MEQ/L (21.0-32.0) Anion Gap 7 MEQ/L (5-15) 9 MEQ/L (5-15) Estimat Glomerular Filtration Rate 72 ML/MIN (>89) 72 ML/MIN (>89) Result Diagram: 11/15/1744011/15/17440 Microbiology Microbiology Date/Time Source Procedure Growth Status 11/13/17 20:30 Blood Peripheral Aerobic Blood Culture - Preliminary NO GROWTH IN 2 DAYS Resulted 11/13/17 20:30 Blood Peripheral Anaerobic Blood Culture - Preliminary NO GROWTH IN 2 DAYS Resulted 11/13/17 20:20 Blood Peripheral Aerobic Blood Culture - Preliminary NO GROWTH IN 2 DAYS Resulted 11/13/17 20:20 Blood Peripheral Anaerobic Blood Culture - Preliminary NO GROWTH IN 2 DAYS Resulted Assessment and Plan Disease Oriented Problem List: (1) Personal history of pulmonary embolism (2) Anemia Comment: Secondary to GI bleed (3) GIB (gastrointestinal bleeding) (4) GI bleed (5) Pancreatic cancer metastasized to liver (6) SHELLY (acute kidney injury) Comment: Resolving Symptom Scale: (1) Pain 0-10 Scale: Unable to quantify (2) Nausea 0-10 Scale: Unable to quantify (3) Weakness 0-10 Scale: Unable to quantify Pertinent Non-Medical Issues Psychosocial: Spiritual: Legal: Ethical issues impacting care: Important Contacts Rachelle Mata, sister: [phone] London Le, friend: [phone] Prognosis Patient with pancreatic cancer who is currently undergoing palliative chemotherapy status post biliary and duodenal stent placement. Currently hospitalized secondary to GIB; patient was hospitalized last year with an upper GI bleed due to duodenal stent erosion.states this happened previously last year due to friable tissue at the stent site. Patient describes his functional status prior to this recent hospitalization as "pretty good." Patient's condition is terminal and remains high risk for continued complications and setbacks. . Code Status: Full Code Plan * ALTERNATE CODE- intubation only * Decision-making: Patient currently has insight and judgment related to his medical conditions. He designates his sister (Rachelle Mata) as his healthcare surrogate decision maker. * Patient states he has completed a written advanced directives at the [facility] in [place], [place]. Contacted medical records at [phone] , awaiting faxed copies of completed written advanced directives. * Goals remain aggressive. Patient's primary goal at this time is to return to [facility] as he is scheduled to be there tomorrow 11/15/2017 to receive his chemotherapy. Patient is here with his friend (London Le) who he plans to drive home with when he is stable. * Discussed patient with bedside nurse (Christine) and GI CUT OUT MACHINE OPERATOR (Catrachita) * Palliative care contact information provided to the patient * Symptom management: = Pain: Abdominal pain associated with pancreatic cancer. At home patient takes methadone 5mg PO q8 hours and oxycodone 10mg PO q8 hours PRN. Receiving hydromorphone 1 mg q3 hours PRN. 24 hour PRN requirements = 5mg hydromorphone. Will need to transition back to oral pain medication prior to discharge; patient now tolerating PO intake. = Nausea: Resolved. PRN Zofran available = Weakness: Weakness related to anemia status post GI bleed. Additional contributing factors may include disease progression, nausea, decreased nutritional intake. May consider consulting PT prior to discharge. * Palliative care will continue to follow this patient throughout his hospitalization to establish trust, assist with symptom management and clarification of medical treatment goals. Attestation To help prompt me to consider important information that might be impacting today's encounter and assessment, information from prior notes written by myself or my colleagues may have been "brought forward" into today's note. My signature on this note, however, is an attestation that I personally performed the exam, history, and/or decision-making noted today, and, unless otherwise indicated, the interactions with patient, family, and staff as well as the review of records all occurred today. I also attest that the listed assessment and stated plan reflect my best clinical judgment today based on the combination of historical information, prior notes, and today's exam/ interactions. When time spent is documented, it refers only to time spent today by the signer, or if indicated, combined time spent today by collaborating physician/nurse practitioner. , Luz Martinez Nov 15, 2017 12:49
--- NOTE | 2017-11-15 13:56 | HHI.GIFU ---
Subjective Remarks Pt resting in bed. + black stool this am "looked like chocolate pudding." (Catrachita Ross) Objective Vitals I&O Vital Signs Date Time Temp Pulse Resp B/P (MAP) Pulse Ox O2 Delivery O2 Flow Rate FiO2 11/15/17 13:00 68 11/15/17 12:00 98.0 68 16 146/83 (104) 96 11/15/17 12:00 68 11/15/17 11:00 71 11/15/17 10:00 73 11/15/17 09:00 72 11/15/17 08:00 97.7 66 11 133/72 (92) 96 11/15/17 08:00 66 11/15/17 07:00 61 11/15/17 06:00 64 11/15/17 04:00 98.5 72 16 156/87 (110) 96 11/15/17 04:00 72 11/15/17 02:00 73 11/15/17 00:00 72 11/15/17 00:00 98.9 72 14 108/57 (74) 95 11/14/17 22:00 78 11/14/17 20:15 96 21 11/14/17 20:00 98.8 81 24 149/83 (105) 95 11/14/17 20:00 81 11/14/17 18:00 77 11/14/17 17:00 74 11/14/17 16:00 98.5 79 17 128/70 (89) 95 11/14/17 16:00 79 11/14/17 15:00 81 11/14/17 14:00 81 I/O 11/14/17 11/14/17 11/14/17 11/15/17 11/15/17 11/15/17 07:00 15:00 23:00 07:00 15:00 23:00 Intake Total 500 ml 1000 ml 650 ml 1680 ml Output Total 750 ml 1200 ml 700 ml Balance -250 ml 1000 ml -550 ml 980 ml Intake Oral 400 ml 350 ml 480 ml IV Total 100 ml 1000 ml 300 ml 1200 ml Output Urine Total 750 ml 1200 ml 700 ml # Bowel Movements 1 0 Laboratory Laboratory Tests Test 11/15/17 04:41 White Blood Count 8.3 Red Blood Count 2.30 Hemoglobin 7.9 Hematocrit 22.1 Mean Corpuscular Volume 96.0 Mean Corpuscular Hemoglobin 34.5 Mean Corpuscular Hemoglobin Concent 35.9 Red Cell Distribution Width 20.6 Platelet Count 241 Mean Platelet Volume 9.4 Blood Urea Nitrogen 13 Creatinine 1.04 Random Glucose 82 Calcium Level 7.5 Sodium Level 139 Potassium Level 3.5 Chloride Level 107 Carbon Dioxide Level 23.1 Anion Gap 9 Estimat Glomerular Filtration Rate 72 Date/Time Source Procedure Growth Status 11/13/17 20:30 Blood Peripheral Aerobic Blood Culture - Preliminary NO GROWTH IN 2 DAYS Resulted 11/13/17 20:30 Blood Peripheral Anaerobic Blood Culture - Preliminary NO GROWTH IN 2 DAYS Resulted Imaging Last Impressions Abdomen/Pelvis CT 11/13/17 0000 Signed Impressions: Service Date/Time: Monday, November 13, 2017 16:28 - CONCLUSION: Duodenal stent and biliary stent as described above stents obscure fine detail about the pancreas. Moderate ascites Liver metastases Isra Oliveira MD FACR Cholangiopancreatography MRI 11/12/17 0000 Signed Impressions: Service Date/Time: Sunday, November 12, 2017 20:01 - CONCLUSION: 1. Multiple lesions in the liver suspicious for metastatic disease not adequately characterized. 2. Slight ascites in the upper abdomen and cholelithiasis. 3. The bile ducts are difficult to visualize, however slight pneumobilia is present. 4. Slightly dilated pancreatic duct and the pancreas appears atrophic without a clear mass with technique. 5. May consider dedicated CT examination of the abdomen with intravenous contrast to further characterize. Tez Vergara MD Physical Exam HEENT: Normocephalic; atraumatic; + icterus CHEST: CTA CARDIAC: RRR ABDOMEN: Distended,semi firm, nontender, bowel sounds active EXTREMITIES: No clubbing, cyanosis, + BLE edema. SKIN: Normal; no rash; + jaundice. SUPERVISOR PIPELINE MAINTENANCE: No focal deficits; alert and oriented times three. (Catrachita Ross) Assessment and Plan Plan - Acute upper GI bleed- one day history of nausea, vomiting, hematemesis, melena, epigastric pain. He denies alcohol, NSAIDs or ASA. Hgb is 5.6. Hemodynamically stable Last bleeding episodes were last night. Currently feeling nauseous, still with epigastric pain. He is being transfused, on ppi drip - PMH of stage IV pancreatic cancer with mets to the liver under going chemo, status post biliary and duodenal stent that was placed in January of last yr Patient had initial stent placed at in [place] but got infected and was exchanged in [place], LFTs elevated. Not sure of base line, no previous visits. Patient is under the care of oncology at [facility] in [place], [place], 11/13/17 - pain, nausea improved. s/p EGD found gastritis, duodenal stent with ulcerated tissue around it, oozing but no specific bleeding site seen MRCP degraded by motion artifact, showed liver lesions, slight ascites, pneumobilia. mild decrease hgb today but no obvious bleeding (11/14) Reports black stools this morning. Slight drop in H/H currently 8.3/24.4 yesterday was 9.3/27.5. Has not received PRBCs since Nov 12. Pt evaluated by palliative care who states goals remain aggressive and pts primary goal is to return to [place] as he is scheduled for palliative chemotherapy tomorrow. Pt remains on Protonix gtt. CT abdomen and pelvis W IV contrast noted (11/13) --> Duodenal stent and biliary stent as described above stents obscure fine detail about the pancreas. Moderate ascites. Liver metastases. 11/15/17 + black tarry stool today. going for angiogram later. d/w palliative care. hgb 7.9 Plan: - await angiogram - Monitor H/H closely - transfuse as needed - Continue Protonix - Supportive care Pt has been seen and examined by myself and Dr. Bonilla and this note is written on her behalf (Catrachita Ross) Physician Comments seen, examined agree with above (Zhane Bonilla MD) Catrachita Ross Nov 15, 2017 13:56 Zhane Bonilla MD Nov 15, 2017 21:19
[2017-11-15 14:42] LABS: HEMATOCRIT 28.5 % (39.0-51.0); HEMOGLOBIN 9.5 GM/DL (13.0-17.0)
[2017-11-16] VITALS (24 sets, daily range): BP systolic 139–181; BP diastolic 72–94; PULSE 64–93; RESP 15–23; TEMP 97.8–99.7; O2SAT 94–98
[2017-11-16] MEDS: SODIUM CHLOR 0.9% 1000 ML INJ 1,000 ML IV SCH ×2 (03:29→17:36)
[2017-11-16] MEDS: HYDROmorphone HCL PF 2 MG/ML VIAL IV PUSH PRN ×3 (03:29→22:51)
[2017-11-16] MEDS: PIPERACIL-TAZO 4.5 GM PREMIX 100 ML IV SCH ×3 (04:50→17:36)
[2017-11-16] MEDS: ONDANSETRON HCL 4 MG/2 ML VIAL IV PUSH PRN ×2 (04:56→20:46)
[2017-11-16 05:09] LABS: HEMATOCRIT 25.7 % (39.0-51.0); HEMOGLOBIN 8.6 GM/DL (13.0-17.0); MEAN CELL VOLUME 92.7 FL (80.0-100.0); MEAN CORPUSCULAR HEMOGLOBIN 31.2 PG (27.0-34.0); MEAN CORPUSCULAR HGB CONC 33.6 % (32.0-36.0); MEAN PLATELET VOLUME 9.1 FL (7.0-11.0); PLATELET COUNT 264 TH/MM3 (150-450); RED BLOOD COUNT 2.77 MIL/MM3 (4.50-5.90); RED CELL DISTRIBUTION WIDTH 20.6 % (11.6-17.2); WHITE BLOOD COUNT 7.3 TH/MM3 (4.0-11.0)
[2017-11-16 05:19] LABS: BICARBONATE 24.9 MEQ/L (21.0-32.0); CALCIUM 8.2 MG/DL (8.5-10.1); CREATININE 0.96 MG/DL (0.60-1.30)
--- NOTE | 2017-11-16 08:37 | HHI.PR ---
Subjective Remarks Follow-up GI bleed, anemia. Patient has not had any bowel movements this morning. Did have one dark stool last night. He reports some mild stomach discomfort this morning. Has been nothing by mouth for procedure. Objective Vitals Vital Signs Date Time Temp Pulse Resp B/P (MAP) Pulse Ox O2 Delivery O2 Flow Rate FiO2 11/16/17 08:00 98.1 82 23 143/82 (102) 94 11/16/17 08:00 82 11/16/17 06:00 64 11/16/17 04:00 65 11/16/17 04:00 98.6 65 17 139/72 (94) 96 11/16/17 02:00 93 11/16/17 00:00 71 11/16/17 00:00 98.9 71 17 164/82 (109) 95 11/15/17 22:00 72 11/15/17 20:00 72 11/15/17 20:00 98.5 72 16 158/93 (114) 98 11/15/17 18:00 64 11/15/17 17:00 68 11/15/17 16:00 97.9 68 14 153/83 (106) 95 11/15/17 16:00 68 11/15/17 15:00 71 11/15/17 14:00 73 11/15/17 13:00 68 11/15/17 12:00 98.0 68 16 146/83 (104) 96 11/15/17 12:00 68 11/15/17 11:00 71 11/15/17 10:00 73 11/15/17 09:00 72 I/O 11/15/17 11/15/17 11/15/17 11/16/17 11/16/17 11/16/17 07:00 15:00 23:00 07:00 15:00 23:00 Intake Total 1680 ml 100 ml 2250 ml 1200 ml Output Total 700 ml 900 ml 700 ml Balance 980 ml 100 ml 1350 ml 500 ml Intake Oral 480 ml 1050 ml IV Total 1200 ml 100 ml 1200 ml 1200 ml Output Urine Total 700 ml 900 ml 700 ml # Bowel Movements 0 1 Result Diagram: 11/16/17 0350 11/16/17 0350 Imaging Last Impressions Abdomen/Pelvis CT 11/13/17 0000 Signed Impressions: Service Date/Time: Monday, November 13, 2017 16:28 - CONCLUSION: Duodenal stent and biliary stent as described above stents obscure fine detail about the pancreas. Moderate ascites Liver metastases Isra Oliveira MD FACR Cholangiopancreatography MRI 11/12/17 0000 Signed Impressions: Service Date/Time: Sunday, November 12, 2017 20:01 - CONCLUSION: 1. Multiple lesions in the liver suspicious for metastatic disease not adequately characterized. 2. Slight ascites in the upper abdomen and cholelithiasis. 3. The bile ducts are difficult to visualize, however slight pneumobilia is present. 4. Slightly dilated pancreatic duct and the pancreas appears atrophic without a clear mass with technique. 5. May consider dedicated CT examination of the abdomen with intravenous contrast to further characterize. Tez Vergara MD Objective Remarks General: No acute distress. Heart: Regular rate and rhythm. No murmur. Lungs: Clear to auscultation bilaterally. No wheezes, rales, or rhonchi. Breathing is nonlabored. Abdomen: Soft, nontender, nondistended. Extremities: No lower extremity edema. Psych: Alert and oriented. Procedures 11/12/17 EGD Urinary Catheter: No Vascular Central Line Catheter: No A/P Assessment and Plan 1. Acute blood loss anemia secondary to GI bleed: Hemoglobin decreased again this morning. Still having dark stools. The patient has received a total of 4 units PRBCs during this hospitalization. Monitor H&H closely. Status post EGD, which noted gastritis as well as ulcerated tissue surrounding duodenal stent. Continue Protonix drip. Appreciate gastroenterology recommendations. Interventional radiology consulted for angiogram. 2. Metastatic pancreatic cancer: Oncology consultation is pending. Patient has been receiving palliative chemotherapy in [place] and wants to return there for further treatment. 3. Elevated LFTs: Likely secondary to liver metastases. 4. Acute kidney injury: Resolved. 5. Fever: Afebrile overnight. Continue Zosyn empirically. Blood cultures are negative so far. 6. DVT prophylaxis: SCDs. Avoid chemical prophylaxis secondary to GI bleed, anemia. 7. Appreciate palliative care recommendations. Discharge Planning Plan for discharge home soon so patient can return to [place] for further treatment. Brian Hoyt MD Nov 16, 2017 08:37
[2017-11-16] MEDS: PANTOPRAZOLE INJ 80 MG in SODIUM CHLORIDE 0.9% INJ 100 ML IV SCH (10:30)
[2017-11-16] MEDS ORDERED: fentaNYL CITRATE 250 MCG/5 ML AMP ONE (11:19)
[2017-11-16] MEDS ORDERED: MIDAZOLAM HCL 2 MG/2 ML VIAL ONE (11:19)
[2017-11-16] MEDS ORDERED: GELATIN 12 MM/7 MM FOAM I-ARTERIAL ONE (12:45)
[2017-11-16] MEDS ORDERED: IODIXANOL 320 MG/ML 50 ML VIAL (for RAD SPEC) I-ARTERIAL ONE (13:11)
--- NOTE | 2017-11-16 13:24 | HHI.GIFU ---
Subjective Remarks Just back from angiogram, "they found some bleeding and they stopped it." +BM today, brown in color. Admits nausea this morning. (Catrachita Ross) Objective Vitals I&O Vital Signs Date Time Temp Pulse Resp B/P (MAP) Pulse Ox O2 Delivery O2 Flow Rate FiO2 11/16/17 13:00 68 11/16/17 10:00 75 11/16/17 08:00 98.1 82 23 143/82 (102) 94 11/16/17 08:00 82 11/16/17 06:00 64 11/16/17 04:00 65 11/16/17 04:00 98.6 65 17 139/72 (94) 96 11/16/17 02:00 93 11/16/17 00:00 71 11/16/17 00:00 98.9 71 17 164/82 (109) 95 11/15/17 22:00 72 11/15/17 20:00 72 11/15/17 20:00 98.5 72 16 158/93 (114) 98 11/15/17 18:00 64 11/15/17 17:00 68 11/15/17 16:00 97.9 68 14 153/83 (106) 95 11/15/17 16:00 68 11/15/17 15:00 71 11/15/17 14:00 73 I/O 11/15/17 11/15/17 11/15/17 11/16/17 11/16/17 11/16/17 07:00 15:00 23:00 07:00 15:00 23:00 Intake Total 1680 ml 100 ml 2250 ml 1200 ml 100 ml Output Total 700 ml 900 ml 700 ml Balance 980 ml 100 ml 1350 ml 500 ml 100 ml Intake Oral 480 ml 1050 ml IV Total 1200 ml 100 ml 1200 ml 1200 ml 100 ml Output Urine Total 700 ml 900 ml 700 ml # Bowel Movements 0 1 Laboratory Laboratory Tests Test 11/15/17 14:33 11/16/17 03:50 Hemoglobin 9.5 8.6 Hematocrit 28.5 25.7 White Blood Count 7.3 Red Blood Count 2.77 Mean Corpuscular Volume 92.7 Mean Corpuscular Hemoglobin 31.2 Mean Corpuscular Hemoglobin Concent 33.6 Red Cell Distribution Width 20.6 Platelet Count 264 Mean Platelet Volume 9.1 Blood Urea Nitrogen 11 Creatinine 0.96 Random Glucose 72 Calcium Level 8.2 Sodium Level 141 Potassium Level 3.6 Chloride Level 108 Carbon Dioxide Level 24.9 Anion Gap 8 Estimat Glomerular Filtration Rate 79 Date/Time Source Procedure Growth Status 11/13/17 20:30 Blood Peripheral Aerobic Blood Culture - Preliminary NO GROWTH IN 3 DAYS Resulted 11/13/17 20:30 Blood Peripheral Anaerobic Blood Culture - Preliminary NO GROWTH IN 3 DAYS Resulted Imaging Last Impressions Abdomen/Pelvis CT 11/13/17 0000 Signed Impressions: Service Date/Time: Monday, November 13, 2017 16:28 - CONCLUSION: Duodenal stent and biliary stent as described above stents obscure fine detail about the pancreas. Moderate ascites Liver metastases Isra Oliveira MD FACR Cholangiopancreatography MRI 11/12/17 0000 Signed Impressions: Service Date/Time: Sunday, November 12, 2017 20:01 - CONCLUSION: 1. Multiple lesions in the liver suspicious for metastatic disease not adequately characterized. 2. Slight ascites in the upper abdomen and cholelithiasis. 3. The bile ducts are difficult to visualize, however slight pneumobilia is present. 4. Slightly dilated pancreatic duct and the pancreas appears atrophic without a clear mass with technique. 5. May consider dedicated CT examination of the abdomen with intravenous contrast to further characterize. Tez Vergara MD Physical Exam HEENT: Normocephalic; atraumatic; + icterus CHEST: CTA CARDIAC: RRR ABDOMEN: Distended,soft, nontender, bowel sounds soft EXTREMITIES: No clubbing, cyanosis, + BLE edema. SKIN: Normal; no rash; + jaundice. MANAGER STERILE: sleepy (Catrachita Ross BAR CATCHER) Assessment and Plan Plan - Acute upper GI bleed- one day history of nausea, vomiting, hematemesis, melena, epigastric pain. He denies alcohol, NSAIDs or ASA. Hgb is 5.6. Hemodynamically stable Last bleeding episodes were last night. Currently feeling nauseous, still with epigastric pain. He is being transfused, on ppi drip - PMH of stage IV pancreatic cancer with mets to the liver under going chemo, status post biliary and duodenal stent that was placed in January of last yr Patient had initial stent placed at in [place] but got infected and was exchanged in [place], LFTs elevated. Not sure of base line, no previous visits. Patient is under the care of oncology at [facility] in [place], [place], 11/13/17 - pain, nausea improved. s/p EGD found gastritis, duodenal stent with ulcerated tissue around it, oozing but no specific bleeding site seen MRCP degraded by motion artifact, showed liver lesions, slight ascites, pneumobilia. mild decrease hgb today but no obvious bleeding (2/) Reports black stools this morning. Slight drop in H/H currently 8.3/24.4 yesterday was 9.3/27.5. Has not received PRBCs since Nov 12. Pt evaluated by palliative care who states goals remain aggressive and pts primary goal is to return to [place] as he is scheduled for palliative chemotherapy tomorrow. Pt remains on Protonix gtt. CT abdomen and pelvis W IV contrast noted (11/13) --> Duodenal stent and biliary stent as described above stents obscure fine detail about the pancreas. Moderate ascites. Liver metastases. 11/15/17 + black tarry stool today. going for angiogram later. d/w palliative care. hgb 7.9 11/16/17 hgb 8.6 today. s/p angiogram, report pending. per pt there was an intervention. stool brown today. Plan: - await angiogram report - Monitor H/H - transfuse as needed - Continue Protonix - Supportive care Pt has been seen and examined by myself and Dr. Bonilla and this note is written on her behalf (Catrachita Ross) Physician Comments seen, examined s/p angiogram with embolization hopefuly bleeding will stop for now consider adding Lasix for pedal edema-as per primary (Zhane Bonilla MD) Catrachita Ross Nov 16, 2017 13:24 Zhane Bonilla MD Nov 16, 2017 15:14
[2017-11-16] MEDS ORDERED: SODIUM CHLOR 0.9% 1000 ML INJ 1,000 ML IV SCH (13:28)
--- NOTE | 2017-11-16 13:32 | PD.RAD ---
Post Procedure Progress Note Pre Procedure Diagnosis: (1) Pancreatic cancer metastasized to liver (2) GIB (gastrointestinal bleeding) Post Procedure Diagnosis: (1) Pancreatic cancer metastasized to liver (2) GIB (gastrointestinal bleeding) Procedure Date: Nov 16, 2017 Supervising Radiologist: Vineet Izaguirre Proceduralist/Assist: Jazmyne Heart, RT(R) Anesthesia: Local, Conscious Sedation Plan of Activity Patient to Unit: ROPU Patient Condition: Good See PACS Report for procedural detail/treatment Vascular-Arterial Procedure Procedure 1 Procedure Site: Celiac, Superior Mesenteric Artery Procedure(s): Angiogram, Embolization Access Access Site(s): Right Femoral Artery Closure Site(s): Right manual pressure Findings: erosion of GDA with perforation into the second portion of the duodenum Treament Area: GDA embolized with gelfoam and coil Vineet Izaguirre MD Nov 16, 2017 13:32
--- NOTE | 2017-11-16 13:37 | HHI.HCPN ---
Reason for visit a. To assist with evaluation and management of symptoms including: pain, nausea, weakness b. To assist medical decision maker(s) with: better understanding of current medical conditions; weighing benefits/burdens of medical treatment options; making medical treatment decisions. . Subjective/Interval History Mr. Mata is a 61 yo man with a known history of pancreatic cancer who is currently undergoing palliative chemotherapy status post biliary and duodenal stent placement. He presented to [facility] ED on 11/12/2017 with complaints of nausea, vomiting, hematemesis, melena and epigastric pain. Patient reported sudden onset of symptoms approximately 12 hours earlier. He endorsed chills, shortness of breath and weakness. Patient was pale and tachypneic on exam. Epigastric region was tender to palpation. Patient endorsed lightheadedness and dizziness. Follow up visit for symptom management and education of treatment goals. Patient seen in the intensive care unit; alert and oriented to person, place, time and situation. Generalized pallor appreciated. He had 1 dark BM overnight. H/H decreased from 9.5/28.5 yesterday 11/15/2017 to 8.6/25.7 this morning. Patient has been transfused with 4 units of packed RBCs throughout this hospitalization sp EGD which revealed gastritis as well as ulcerated tissue surrounding the duodenal stent. IR was consulted for angiogram; patient is currently NPO awaiting procedure. Remains afebrile; leukocytosis has resolved. Blood cultures with no gross in 3 days. Patient remains Zosyn empirically. Patient reporting mild abdominal discomfort this morning related to or 3 out of 10. Hydromorphone is available q3 hours PRN; 24 hour PRN requirements = 3mg. Patient denies nausea on exam, however he has utilized 1 dose of PRN Zofran in the past 24 hours. Patient continues to express aggressive goals stating he hopes he will be discharged as soon a possible so he can return home to [place] to continue palliative chemotherapy. . Advance Directives Living Will: Completed, but not made available Health Care Surrogate: Copy in medical record Advance Directive Specifics Date completed: 11/14/2017 . Health Care Surrogate(s): Patient designates his sister (Rachelle Mata) as his healthcare surrogate decision maker. . Documented care wishes: Patient states he has completed a written advanced directives at the [facility] in [place], [place]. Contacted medical records on 11/14/17 at [phone], awaiting faxed copies of completed written advanced directives. . Objective Vital Signs Date Time Temp Pulse Resp B/P (MAP) Pulse Ox O2 Delivery O2 Flow Rate FiO2 11/16/17 13:00 68 11/16/17 10:00 75 11/16/17 08:00 98.1 82 23 143/82 (102) 94 11/16/17 08:00 82 11/16/17 06:00 64 11/16/17 04:00 65 11/16/17 04:00 98.6 65 17 139/72 (94) 96 11/16/17 02:00 93 11/16/17 00:00 71 11/16/17 00:00 98.9 71 17 164/82 (109) 95 11/15/17 22:00 72 11/15/17 20:00 72 11/15/17 20:00 98.5 72 16 158/93 (114) 98 11/15/17 18:00 64 11/15/17 17:00 68 11/15/17 16:00 97.9 68 14 153/83 (106) 95 11/15/17 16:00 68 11/15/17 15:00 71 11/15/17 14:00 73 Intake & Output 11/16/17 11/16/17 07:00 19:00 Intake Total 1200 ml 100 ml Output Total 700 ml Balance 500 ml 100 ml IV Total 1200 ml 100 ml Output Urine Total 700 ml . Physical Exam CONSTITUTIONAL/GENERAL: This is a middle aged, pale male in no apparent distress. TUBES/LINES/DRAINS:PIV x 2 SKIN: Generalized pallor. No wounds seen anteriorly. Skin temperature appropriate. Not diaphoretic. HEAD: Atraumatic. Normocephalic. EYES: Pupils equal and round and reactive. Extraocular motions intact. No scleral icterus. No injection or drainage. Fundi not examined. ENT: Hearing grossly normal. Nose without bleeding or purulent drainage. NECK: Trachea midline. Supple, nontender. No palpable thyroid enlargement or nodularity. CARDIOVASCULAR: Regular rate and rhythm without murmurs, gallops, or rubs. No JVD. Peripheral pulses symmetric. RESPIRATORY/CHEST: Respirations unlabored Clear to auscultation. Breath sounds equal bilaterally. No wheezes, rales, or rhonchi. GASTROINTESTINAL: Abdomen slightly tender to palpation. No guarding. Bowel sounds present. GENITOURINARY: Without palpable bladder distension. MUSCULOSKELETAL: Extremities without clubbing or cyanosis. 1+ pedal edema bilaterally. LYMPHATICS: No palpable cervical or supraclavicular adenopathy. NEUROLOGICAL: Awake and alert. Motor and sensory grossly within normal limits. Follows commands. Cognitively sharp. Moves all extremities. PSYCHIATRIC: No obvious anxiety/depression. No apparent hallucinations or other psychotic thought process. . Diagnostic Tests Laboratory Laboratory Tests Test 11/13/17 17:46 11/14/17 00:08 11/14/17 06:06 11/14/17 12:25 Hemoglobin 8.8 GM/DL (13.0-17.0) 8.8 GM/DL (13.0-17.0) 8.0 GM/DL (13.0-17.0) 8.3 GM/DL (13.0-17.0) Hematocrit 25.4 % (39.0-51.0) 25.8 % (39.0-51.0) 22.8 % (39.0-51.0) 24.4 % (39.0-51.0) White Blood Count 11.0 TH/MM3 (4.0-11.0) Red Blood Count 2.51 MIL/MM3 (4.50-5.90) Mean Corpuscular Volume 90.9 FL (80.0-100.0) Mean Corpuscular Hemoglobin 31.9 PG (27.0-34.0) Mean Corpuscular Hemoglobin Concent 35.1 % (32.0-36.0) Red Cell Distribution Width 19.6 % (11.6-17.2) Platelet Count 185 TH/MM3 (150-450) Mean Platelet Volume 9.1 FL (7.0-11.0) Neutrophils (%) (Auto) 85.2 % (16.0-70.0) Lymphocytes (%) (Auto) 5.5 % (9.0-44.0) Monocytes (%) (Auto) 8.9 % (0.0-8.0) Eosinophils (%) (Auto) 0.1 % (0.0-4.0) Basophils (%) (Auto) 0.3 % (0.0-2.0) Neutrophils # (Auto) 9.4 TH/MM3 (1.8-7.7) Lymphocytes # (Auto) 0.6 TH/MM3 (1.0-4.8) Monocytes # (Auto) 1.0 TH/MM3 (0-0.9) Eosinophils # (Auto) 0.0 TH/MM3 (0-0.4) Basophils # (Auto) 0.0 TH/MM3 (0-0.2) CBC Comment AUTO DIFF Differential Comment AUTO DIFF CONFIRMED Platelet Estimate NORMAL (NORMAL) Platelet Morphology Comment NORMAL (NORMAL) Tear Drop Cells 1+ (NORMAL) Ovalocytes 1+ (NORMAL) Blood Urea Nitrogen 17 MG/DL (7-18) Creatinine 1.04 MG/DL (0.60-1.30) Random Glucose 109 MG/DL (74-106) Total Protein 4.7 GM/DL (6.4-8.2) Albumin 1.6 GM/DL (3.4-5.0) Calcium Level 7.9 MG/DL (8.5-10.1) Phosphorus Level 3.4 MG/DL (2.5-4.9) Magnesium Level 1.9 MG/DL (1.5-2.5) Alkaline Phosphatase 641 U/L (45-117) Aspartate Amino Transf (AST/SGOT) 33 U/L (15-37) Alanine Aminotransferase (ALT/SGPT) 45 U/L (12-78) Total Bilirubin 3.4 MG/DL (0.2-1.0) Sodium Level 136 MEQ/L (136-145) Potassium Level 3.9 MEQ/L (3.5-5.1) Chloride Level 105 MEQ/L (98-107) Carbon Dioxide Level 23.6 MEQ/L (21.0-32.0) Anion Gap 7 MEQ/L (5-15) Estimat Glomerular Filtration Rate 72 ML/MIN (>89) Test 11/15/17 04:41 11/15/17 14:33 11/16/17 03:50 White Blood Count 8.3 TH/MM3 (4.0-11.0) 7.3 TH/MM3 (4.0-11.0) Red Blood Count 2.30 MIL/MM3 (4.50-5.90) 2.77 MIL/MM3 (4.50-5.90) Hemoglobin 7.9 GM/DL (13.0-17.0) 9.5 GM/DL (13.0-17.0) 8.6 GM/DL (13.0-17.0) Hematocrit 22.1 % (39.0-51.0) 28.5 % (39.0-51.0) 25.7 % (39.0-51.0) Mean Corpuscular Volume 96.0 FL (80.0-100.0) 92.7 FL (80.0-100.0) Mean Corpuscular Hemoglobin 34.5 PG (27.0-34.0) 31.2 PG (27.0-34.0) Mean Corpuscular Hemoglobin Concent 35.9 % (32.0-36.0) 33.6 % (32.0-36.0) Red Cell Distribution Width 20.6 % (11.6-17.2) 20.6 % (11.6-17.2) Platelet Count 241 TH/MM3 (150-450) 264 TH/MM3 (150-450) Mean Platelet Volume 9.4 FL (7.0-11.0) 9.1 FL (7.0-11.0) Blood Urea Nitrogen 13 MG/DL (7-18) 11 MG/DL (7-18) Creatinine 1.04 MG/DL (0.60-1.30) 0.96 MG/DL (0.60-1.30) Random Glucose 82 MG/DL (74-106) 72 MG/DL (74-106) Calcium Level 7.5 MG/DL (8.5-10.1) 8.2 MG/DL (8.5-10.1) Sodium Level 139 MEQ/L (136-145) 141 MEQ/L (136-145) Potassium Level 3.5 MEQ/L (3.5-5.1) 3.6 MEQ/L (3.5-5.1) Chloride Level 107 MEQ/L (98-107) 108 MEQ/L (98-107) Carbon Dioxide Level 23.1 MEQ/L (21.0-32.0) 24.9 MEQ/L (21.0-32.0) Anion Gap 9 MEQ/L (5-15) 8 MEQ/L (5-15) Estimat Glomerular Filtration Rate 72 ML/MIN (>89) 79 ML/MIN (>89) . Result Diagram: 11/16/17 0350 11/16/17 0350 Microbiology Microbiology Date/Time Source Procedure Growth Status 11/13/17 20:30 Blood Peripheral Aerobic Blood Culture - Preliminary NO GROWTH IN 3 DAYS Resulted 11/13/17 20:30 Blood Peripheral Anaerobic Blood Culture - Preliminary NO GROWTH IN 3 DAYS Resulted 11/13/17 20:20 Blood Peripheral Aerobic Blood Culture - Preliminary NO GROWTH IN 3 DAYS Resulted 11/13/17 20:20 Blood Peripheral Anaerobic Blood Culture - Preliminary NO GROWTH IN 3 DAYS Resulted . Assessment and Plan Disease Oriented Problem List: (1) Personal history of pulmonary embolism (2) Anemia Comment: Secondary to GI bleed (3) GIB (gastrointestinal bleeding) (4) GI bleed (5) Pancreatic cancer metastasized to liver (6) SHELLY (acute kidney injury) Comment: Resolving Symptom Scale: (1) Pain 0-10 Scale: 2 (2) Nausea 0-10 Scale: 0 (3) Weakness 0-10 Scale: Unable to quantify Pertinent Non-Medical Issues Psychosocial: Spiritual: Legal: Ethical issues impacting care: Important Contacts Rachelle Adolfo, sister: [phone] London Le, friend: [phone] Prognosis Patient with pancreatic cancer who is currently undergoing palliative chemotherapy status post biliary and duodenal stent placement. Currently hospitalized secondary to GIB; patient was hospitalized last year with an upper GI bleed due to duodenal stent erosion.states this happened previously last year due to friable tissue at the stent site. Patient describes his functional status prior to this recent hospitalization as "pretty good." Patient's condition is terminal and remains high risk for continued complications and setbacks. . Code Status: Full Code Plan * ALTERNATE CODE- intubation only * Decision-making: Patient currently has insight and judgment related to his medical conditions. He designates his sister (Rachelle Mata) as his healthcare surrogate decision maker. * Patient states he has completed a written advanced directives at the [facility] in [place], [place]. Contacted medical records at [phone] , awaiting faxed copies of completed written advanced directives. * Goals remain aggressive. Patient's primary goal at this time is to return to [facility] as he is scheduled to be there 11/15/2017 to receive his chemotherapy. Patient is here with his friend (London Le) who he plans to drive home with when he is stable. * Discussed patient with bedside nurse (Yenny). * Symptom management: = Pain: Abdominal pain associated with pancreatic cancer. Patient reporting mild abdominal discomfort rated 2-3 out of 10. At home patient takes methadone 5mg PO q8 hours and oxycodone 10mg PO q8 hours PRN. Receiving hydromorphone 1 mg q3 hours PRN. 24 hour PRN requirements = 3mg hydromorphone. Will need to transition back to oral pain medication prior to discharge; patient now tolerating PO intake. = Nausea: Resolved. PRN Zofran available-1 dose required in the past 24 hours. = Weakness: Weakness related to anemia status post GI bleed. Additional contributing factors may include disease progression, nausea, decreased nutritional intake. May consider consulting PT prior to discharge. * Palliative care will continue to follow this patient throughout his hospitalization to establish trust, assist with symptom management and clarification of medical treatment goals. . Attestation To help prompt me to consider important information that might be impacting today's encounter and assessment, information from prior notes written by myself or my colleagues may have been "brought forward" into today's note. My signature on this note, however, is an attestation that I personally performed the exam, history, and/or decision-making noted today, and, unless otherwise indicated, the interactions with patient, family, and staff as well as the review of records all occurred today. I also attest that the listed assessment and stated plan reflect my best clinical judgment today based on the combination of historical information, prior notes, and today's exam/ interactions. When time spent is documented, it refers only to time spent today by the signer, or if indicated, combined time spent today by collaborating physician/nurse practitioner. . Luz Martinez Nov 16, 2017 13:37
--- NOTE | 2017-11-16 13:49 | RADRPT ---
EXAM DATE/TIME: 11/16/2017 12:43 COMPARISON: No previous studies available for comparison. INDICATIONS : Patient with a history of GI bleed. MEDICAL HISTORY : Pancreatic cancer, currently undergoing palliative chemotherapy. SURGICAL HISTORY : Biliary stent Duodenal stent Hemorrhoidectomy Right hand index finger tendon reconstruction ENCOUNTER: Initial ACUITY: 4-6 days PAIN SCORE: 2/10 LOCATION: Stomach FLUORO TIME: 17.2 minutes IMAGE SERIES: 12 ACCESS SITE: Right Femoral artery SEDATION TIME: 45 minutes CONTRAST: 1.) 110 cc Visipaque (iodixanol) MEDICATION(S): 1.) 3 mg midazolam (Versed) IV 2.) 150 mcg fentanyl (Sublimaze) IV DEVICE(S): 1.) gastroduodenal artery 5X3 Tornado embolic coil(s) 2.) gastroduodenal artery Gelfoam 3.) Right common femoral artery Syvek pad PROCEDURES: 1. Ultrasound guided right femoral artery catheterization 2. Selective catheterization, superior mesenteric artery 3. Selective superior mesenteric arteriography with aortography 4. Subselective catheterization, gastroduodenal artery 5. Common hepatic arteriography and selective gastroduodenal artery arteriography 6. Transcatheter embolization, gastroduodenal artery. 7. Followup arteriography following embolization, common hepatic artery TECHNIQUE: The patient was placed supine on the angiography table. The right groin was prepped in sterile fashi on. Full sterile technique was used, including cap, mask, sterile gloves and gown and a large sterile sheet. Hand hygiene and 2% chlorhexidine and/or betadine/alcohol prep was utilized per protocol for cutaneous antisepsis with appropriate dry time for site. The skin and subcutaneous tissues were infil trated with lidocaine solution. Blunt dissection was utilized to free up the tissues superficial to t he access vessel. Ultrasound guidance was utilized using sterile gel and sterile probe cover. Under d critical access hospital ultrasound guidance, micropuncture access was accomplished into the right common femoral artery allowing placement of a 4 Bulgarian vascular sheath. The ultrasound images depicting access guidance we re saved and stored to PACS for permanent record. A 4 Bulgarian Omni flush catheter was introduced and positioned in the upper abdominal aorta. Digital tran btraction abdominal aortography was performed. A 4 Bulgarian hook catheter was then introduced and used to select the superior mesenteric artery. Selective superior mesenteric arteriography was performed. Was used to select the celiac artery. The catheter could not be advanced very easily secondary to res istance through tortuosity in the iliac. For this reason, sheath exchange was performed with placemen t of a 25 cm 5 Bulgarian pinnacle sheath. The hook catheter was reintroduced and used to select the comm on hepatic artery. Selective hepatic arteriography was performed. The catheter was further advanced i nto the gastroduodenal artery and selective gastroduodenal arteriography was performed. The gastroduodenal artery was embolized initially with thick Gelfoam slurry followed by placement of a single 5/3 mm tornado coil. Completion arteriography was performed from the common hepatic artery r evealing occlusion of the GDA with cessation of antegrade flow. The catheter and sheath were removed and hemostasis was achieved with right groin with direct pressur e and application of hemostatic patch. The patient tolerated the procedure well and was returned in t his area in satisfactory condition. Continuous pulse oximetry, hemodynamic and EKG monitoring was per formed throughout the procedure with conscious sedation administered as outlined above. FINDINGS: Abdominal aorta and iliacs are widely patent. Superior mesenteric artery is patent and normal in appe arance with no significant contribution of abnormal flow to the region of the duodenum. The celiac ar mallory is notable for classical anatomy. The gastroduodenal artery was selectively evaluated revealing a leaking pseudoaneurysm alongside the duodenal stent in the region of the second portion of the duod enum. I could not manipulate past this region in order to block distal flow which would have allowed particulate embolization. Instead, Gelfoam slurry was introduced followed by placement of a single 5/ 3 Tornado coil. Completion arteriography revealed total occlusion of the GDA with cessation of antegr renny flow into the region of the vascular abnormality and bleeding. CONCLUSION: Uncomplicated mesenteric arteriography with gastroduodenal artery embolization. 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 Vineet Izaguirre MD on November 16, 2017 at 13:31 Board Certified Radiologist. This report was verified electronically.
[2017-11-16 14:34] LABS: HEMATOCRIT 28.1 % (39.0-51.0); HEMOGLOBIN 9.3 GM/DL (13.0-17.0)
--- NOTE | 2017-11-16 14:40 | PD.ONC.PN ---
Subjective Subjective Remarks Afebrile overnight. Patient lethargic. He is recently returned from procedure in invasive radiology which required sedation. He denies pain at present. He has no complaints. Objective Data Date Time Temp Pulse Resp B/P (MAP) Pulse Ox O2 Delivery O2 Flow Rate FiO2 11/16/17 14:14 98.3 69 17 162/83 (109) 95 11/16/17 14:00 68 11/16/17 13:59 98.5 65 16 174/94 (120) 96 11/16/17 13:44 98.3 66 16 152/81 (104) 94 11/16/17 13:29 98.4 64 15 167/80 (109) 97 11/16/17 13:00 68 11/16/17 10:00 75 11/16/17 08:00 98.1 82 23 143/82 (102) 94 11/16/17 08:00 82 11/16/17 06:00 64 11/16/17 04:00 65 11/16/17 04:00 98.6 65 17 139/72 (94) 96 11/16/17 02:00 93 11/16/17 00:00 71 11/16/17 00:00 98.9 71 17 164/82 (109) 95 11/15/17 22:00 72 11/15/17 20:00 72 11/15/17 20:00 98.5 72 16 158/93 (114) 98 11/15/17 18:00 64 11/15/17 17:00 68 11/15/17 16:00 97.9 68 14 153/83 (106) 95 11/15/17 16:00 68 11/15/17 15:00 71 11/16/17 11/16/17 11/16/17 06:59 14:59 22:59 Intake Total 1200 ml 100 ml Output Total 700 ml Balance 500 ml 100 ml Result Diagram: 11/16/17 0350 11/16/17 035 Laboratory Results Laboratory Tests Test 11/16/17 03:50 11/16/17 14:02 White Blood Count 7.3 TH/MM3 Red Blood Count 2.77 MIL/MM3 Hemoglobin 8.6 GM/DL Hematocrit 25.7 % Mean Corpuscular Volume 92.7 FL Mean Corpuscular Hemoglobin 31.2 PG Mean Corpuscular Hemoglobin Concent 33.6 % Red Cell Distribution Width 20.6 % Platelet Count 264 TH/MM3 Mean Platelet Volume 9.1 FL Blood Urea Nitrogen 11 MG/DL Creatinine 0.96 MG/DL Random Glucose 72 MG/DL Calcium Level 8.2 MG/DL Sodium Level 141 MEQ/L Potassium Level 3.6 MEQ/L Chloride Level 108 MEQ/L Carbon Dioxide Level 24.9 MEQ/L Anion Gap 8 MEQ/L Estimat Glomerular Filtration Rate 79 ML/MIN Culture Results Microbiology Date/Time Source Procedure Growth Status 11/13/17 20:30 Blood Peripheral Aerobic Blood Culture - Preliminary NO GROWTH IN 3 DAYS Resulted 11/13/17 20:30 Blood Peripheral Anaerobic Blood Culture - Preliminary NO GROWTH IN 3 DAYS Resulted 11/13/17 20:20 Blood Peripheral Aerobic Blood Culture - Preliminary NO GROWTH IN 3 DAYS Resulted 11/13/17 20:20 Blood Peripheral Anaerobic Blood Culture - Preliminary NO GROWTH IN 3 DAYS Resulted Imaging Studies Last 24 hours Impressions Abdomen Arteriogram 11/16/17 0000 Signed Impressions: Service Date/Time: November 12:43 - CONCLUSION: Uncomplicated mesenteric arteriography with gastroduodenal artery embolization. 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 Vineet Izaguirre MD Administered Medications Medications (Trade) Dose Ordered Sig/Yasmeen Route PRN Reason Start Time Stop Time Status Last Admin Dose Admin Pantoprazole Sodium 80 mg/ Sodium Chloride 100 ml @ 10 mls/hr Q10H IV 11/12/17 13:12 11/16/17 10:30 Ondansetron HCl (Zofran Inj) 4 mg Q6H PRN IV PUSH NAUSEA OR VOMITING 11/12/17 14:00 11/16/17 04:56 Miscellaneous Information 1 [id number] XX 11/12/17 14:00 11/12/17 19:00 Chlorhexidine Gluconate (Chlorhexidine 2% Cloth) 3 pack Taper DAILY@04 TOP 11/13/17 04:00 11/09/18 03:59 11/15/17 23:27 Sodium Chloride 1,000 ml @ 75 mls/hr [id number] IV 11/12/17 14:15 11/16/17 03:29 Hydromorphone HCl (Dilaudid Pf Inj) 1 mg Q3H PRN IV PUSH pain 8-10 or not taking po 11/12/17 14:15 11/16/17 03:29 Piperacillin Sod/ Tazobactam Sod 100 ml @ 200 mls/hr Q6H IV 11/13/17 18:00 11/16/17 13:40 Objective Remarks GENERAL: Lethargic middle aged male, supine in bed resting. SKIN: Warm and dry. HEAD: Normocephalic. EYES: No injection or drainage. NECK: Supple, trachea midline. CARDIOVASCULAR: Regular rate and rhythm RESPIRATORY: Breath sounds equal bilaterally. No accessory muscle use. GASTROINTESTINAL: Abdomen w/ mild distension, mildly ttp, epigastrium EXTREMITIES: No cyanosis NEUROLOGICAL: awake but lethargic. Assessment/Plan Problem List: (1) GIB (gastrointestinal bleeding) ICD Codes: K92.2 - Gastrointestinal hemorrhage, unspecified Plan: --EGD during this admission revealed mild gastritis in the gastric duodenum, duodenal stent extending into the pylorus, debris and ulceration seen around the stent, significant growth of tissue through the stent, some oozing seen from extremely friable mucosa around the stent. No single site of bleeding identified. --Abdominal arteriogram, 11/16 showed erosion of GDA with perforation into the second portion of the duodenum; GDA embolized with gelfoam and coil in invasive radiology (2) Pancreatic cancer metastasized to liver ICD Codes: C25.9 - Malignant neoplasm of pancreas, unspecified; C78.7 - Secondary malignant neoplasm of liver and intrahepatic bile duct Plan: --once stabilized, patient will return to [place], [place] for further treatment. History --follows with an oncologist up in [facility] in [place]. --previously received FOLFIRINOX chemotherapy, then placed on gemcitabine and Abraxane and currently he is on single agent gemcitabine. his last dose was approximately two weeks ago. --was admitted in October of 2017 from October 16 through October 18 for an upper GI bleed due to duodenal stent erosion. EGD at that time showed friable tissue, but no active bleeding. He was on full intensity anticoagulation at that time for pulmonary embolism. He was transfused four units of packed red blood cells and then his hemoglobin was stable above 10. (3) Personal history of pulmonary embolism ICD Codes: Z86.711 - Personal history of pulmonary embolism Plan: --was found to have bilateral pulmonary emboli in March of 2016 and was treated with Lovenox up until last month when found to have GI bleed. Assessment 61y/o male with metastatic pancreatic cancer admitted with GIB Plan 1. trend H/H 2. monitor LFT's 3. continue supportive care 4. once stabilized, patient will return to [place] and resume care with his oncologist there. Attending Statement The exam, history, and the medical decision-making described in the above note were completed with the assistance of the mid-level provider. I reviewed and agree with the findings presented. I attest that I had a [id number] encounter with the patient on the same day, and personally performed and documented my assessment and findings in the medical record. 61 yoM with metastatic pancreatic cancer. Vacationing in [place] admitted with GIB. S/p successufl embolization today. On discharge he will follow up with primary oncology team [place]. Demetra Saeed Nov 16, 2017 14:40 Genesis Grady MD Nov 17, 2017 07:27
--- NOTE | 2017-11-16 14:49 | HHI.HCSW ---
Insurance Claims Adjuster Visit Advance Directive Attempting to get copies of advanced directives. Patient reports he completed advanced directives at the [facility] in [place], [place]. Copies never received from previous attempt. Contacted medical records (#[phone]) again. [place] [facility] [place] received will send copy to HIM to be scanned into EMR. . Follow Up Visit Palliative care will continue to follow throughout hospitalization. Shilpi Soto, SENIOR ANALYSIS SPECIALIST Nov 16, 2017 14:49
[2017-11-17] VITALS (14 sets, daily range): BP systolic 133–176; BP diastolic 68–87; PULSE 58–70; RESP 14–20; TEMP 98.5–98.9; O2SAT 93–99
[2017-11-17] MEDS: PANTOPRAZOLE INJ 80 MG in SODIUM CHLORIDE 0.9% INJ 100 ML IV SCH ×2 (00:18→08:53)
[2017-11-17] MEDS: PIPERACIL-TAZO 4.5 GM PREMIX 100 ML IV SCH ×4 (00:19→18:08)
[2017-11-17] MEDS: HYDROmorphone HCL PF 2 MG/ML VIAL IV PUSH PRN ×2 (03:13→18:07)
[2017-11-17] MEDS: ONDANSETRON HCL 4 MG/2 ML VIAL IV PUSH PRN (03:13)
[2017-11-17 04:00] LABS: HEMATOCRIT 26.3 % (39.0-51.0); HEMOGLOBIN 8.9 GM/DL (13.0-17.0); MEAN CELL VOLUME 91.3 FL (80.0-100.0); MEAN CORPUSCULAR HEMOGLOBIN 30.8 PG (27.0-34.0); MEAN CORPUSCULAR HGB CONC 33.8 % (32.0-36.0); MEAN PLATELET VOLUME 8.3 FL (7.0-11.0); PLATELET COUNT 363 TH/MM3 (150-450); RED BLOOD COUNT 2.88 MIL/MM3 (4.50-5.90); RED CELL DISTRIBUTION WIDTH 19.3 % (11.6-17.2); WHITE BLOOD COUNT 9.9 TH/MM3 (4.0-11.0)
[2017-11-17] MEDS: CHLORHEXIDINE GLUCONATE 2 % 1 PACK (2 CLOTHS) TOP SCH (04:00)
[2017-11-17 04:10] LABS: BICARBONATE 23.6 MEQ/L (21.0-32.0); CALCIUM 7.5 MG/DL (8.5-10.1); CREATININE 0.93 MG/DL (0.60-1.30)
[2017-11-17] MEDS: SODIUM CHLOR 0.9% 1000 ML INJ 1,000 ML IV SCH (07:35)
--- NOTE | 2017-11-17 09:11 | HHI.PR ---
Subjective Remarks Follow up GI bleed, anemia. Patient reports a non-bloody bowel movement overnight. Had nausea last night, but none this morning. Objective Vitals Vital Signs Date Time Temp Pulse Resp B/P (MAP) Pulse Ox O2 Delivery O2 Flow Rate FiO2 11/17/17 08:14 95 11/17/17 08:00 61 11/17/17 08:00 98.6 61 15 153/78 (103) 96 11/17/17 06:00 67 11/17/17 04:00 64 11/17/17 04:00 64 14 174/82 (112) 96 11/17/17 02:00 67 11/17/17 00:00 69 11/17/17 00:00 98.8 69 19 153/78 (103) 93 11/16/17 23:21 20 11/16/17 22:00 72 11/16/17 20:52 98 21 11/16/17 20:00 99.7 66 17 164/84 (110) 98 11/16/17 20:00 66 11/16/17 19:14 67 20 159/83 (108) 98 11/16/17 18:14 97.8 67 17 170/83 (112) 97 11/16/17 18:00 67 11/16/17 17:14 99.5 67 20 181/84 (116) 96 11/16/17 16:14 98.0 66 19 172/84 (113) 96 11/16/17 16:00 80 11/16/17 15:44 98.1 78 18 179/90 (119) 96 11/16/17 15:14 98.4 82 20 167/94 (118) 96 11/16/17 14:44 98.3 80 18 180/91 (120) 94 11/16/17 14:14 98.3 69 17 162/83 (109) 95 11/16/17 14:00 68 11/16/17 13:59 98.5 65 16 174/94 (120) 96 11/16/17 13:44 98.3 66 16 152/81 (104) 94 11/16/17 13:29 98.4 64 15 167/80 (109) 97 11/16/17 13:00 68 11/16/17 10:00 75 I/O 2/8/18 2/8/18 11/16/17 11/17/17 11/17/17 11/17/17 07:00 15:00 23:00 07:00 15:00 23:00 Intake Total 1200 ml 100 ml 1316 ml 1045.5 ml Output Total 700 ml 700 ml 620 ml Balance 500 ml 100 ml 616 ml 425.5 ml Intake Oral 480 ml 400 ml IV Total 1200 ml 100 ml 836 ml 645.5 ml Output Urine Total 700 ml 700 ml 620 ml # Voids 1 # Bowel Movements 1 1 Result Diagram: 11/17/17 0340 11/17/17 0340 Imaging Last Impressions Abdomen Arteriogram 11/16/17 0000 Signed Impressions: Service Date/Time: November 12:43 - CONCLUSION: Uncomplicated mesenteric arteriography with gastroduodenal artery embolization. 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 Vineet Izaguirre MD Abdomen/Pelvis CT 11/13/17 0000 Signed Impressions: Service Date/Time: Monday, November 13, 2017 16:28 - CONCLUSION: Duodenal stent and biliary stent as described above stents obscure fine detail about the pancreas. Moderate ascites Liver metastases Isra Oliveira MD FACR Cholangiopancreatography MRI 11/12/17 0000 Signed Impressions: Service Date/Time: Sunday, November 12, 2017 20:01 - CONCLUSION: 1. Multiple lesions in the liver suspicious for metastatic disease not adequately characterized. 2. Slight ascites in the upper abdomen and cholelithiasis. 3. The bile ducts are difficult to visualize, however slight pneumobilia is present. 4. Slightly dilated pancreatic duct and the pancreas appears atrophic without a clear mass with technique. 5. May consider dedicated CT examination of the abdomen with intravenous contrast to further characterize. Tez Vergara MD Objective Remarks General: No acute distress. Heart: Regular rate and rhythm. No murmur. Lungs: Clear to auscultation bilaterally. No wheezes, rales, or rhonchi. Breathing is nonlabored. Abdomen: Soft, nontender, nondistended. Extremities: 2+ bilateral lower extremity edema. Psych: Alert and oriented. Procedures 11/12/17 EGD 11/16/17 angiogram with embolization of gastroduodenal artery Urinary Catheter: No Vascular Central Line Catheter: No A/P Assessment and Plan 1. Acute blood loss anemia secondary to GI bleed: Hemoglobin decreased again this morning. Still having dark stools. The patient has received a total of 4 units PRBCs during this hospitalization. Monitor H&H closely. Status post EGD, which noted gastritis as well as ulcerated tissue surrounding duodenal stent. Continue Protonix drip. Appreciate gastroenterology recommendations. Angiogram done yesterday, showed erosion of gastroduodenal artery with perforation into the second portion of the duodenum. The gastroduodenal artery was embolized. 2. Metastatic pancreatic cancer: Oncology consultation is pending. Patient has been receiving palliative chemotherapy in [place] and wants to return there for further treatment. 3. Elevated LFTs: Likely secondary to liver metastases. 4. Acute kidney injury: Resolved. 5. Fever: Remains afebrile. Continue Zosyn empirically. Blood cultures are negative so far. 6. DVT prophylaxis: SCDs. Avoid chemical prophylaxis secondary to GI bleed, anemia. 7. Appreciate palliative care recommendations. Discharge Planning Plan for discharge home soon so patient can return to [place] for further treatment. Discharge is pending hematology and gastroenterology clearance. Brian Hoyt MD Nov 17, 2017 09:11
[2017-11-17] MEDS ORDERED: POTASSIUM CHLORIDE 20 MEQ CONTROLLED RELEASE TAB PO ONE (09:15)
[2017-11-17] MEDS ORDERED: HEPARIN SODIUM - IV 2,000 UNITS/2 ML VIAL IV FLUSH PRN (09:15)
[2017-11-17] MEDS ORDERED: SODIUM CHLORIDE 0.9% FLUSH 10 ML FLUSH IV FLUSH PRN (09:15)
[2017-11-17] MEDS ORDERED: FUROSEMIDE 20 MG/2 ML VIAL IV PUSH ONE (09:15)
--- NOTE | 2017-11-17 13:55 | HHI.GIFU ---
Subjective Remarks Pt resting in bed, no GI complaints at this time. Per RN he has had two BMs today, one with what appeared to be some old blood and one normal. (Rachel Dumont) Objective Vitals I&O Vital Signs Date Time Temp Pulse Resp B/P (MAP) Pulse Ox O2 Delivery O2 Flow Rate FiO2 11/17/17 12:00 98.6 61 17 159/83 (108) 94 11/17/17 12:00 61 11/17/17 10:00 70 11/17/17 08:14 95 11/17/17 08:00 61 11/17/17 08:00 98.6 61 15 153/78 (103) 96 11/17/17 06:00 67 11/17/17 04:00 64 11/17/17 04:00 64 14 174/82 (112) 96 11/17/17 02:00 67 11/17/17 00:00 69 11/17/17 00:00 98.8 69 19 153/78 (103) 93 11/16/17 23:21 20 11/16/17 22:00 72 11/16/17 20:52 98 21 11/16/17 20:00 99.7 66 17 164/84 (110) 98 11/16/17 20:00 66 11/16/17 19:14 67 20 159/83 (108) 98 11/16/17 18:14 97.8 67 17 170/83 (112) 97 11/16/17 18:00 67 11/16/17 17:14 99.5 67 20 181/84 (116) 96 11/16/17 16:14 98.0 66 19 172/84 (113) 96 11/16/17 16:00 80 11/16/17 15:44 98.1 78 18 179/90 (119) 96 11/16/17 15:14 98.4 82 20 167/94 (118) 96 11/16/17 14:44 98.3 80 18 180/91 (120) 94 11/16/17 14:14 98.3 69 17 162/83 (109) 95 11/16/17 14:00 68 11/16/17 13:59 98.5 65 16 174/94 (120) 96 I/O 11/16/17 11/16/17 11/16/17 11/17/179/18 2/9/18 07:00 15:00 23:00 07:00 15:00 23:00 Intake Total 1200 ml 100 ml 1316 ml 1045.5 ml Output Total 700 ml 700 ml 620 ml Balance 500 ml 100 ml 616 ml 425.5 ml Intake Oral 480 ml 400 ml IV Total 1200 ml 100 ml 836 ml 645.5 ml Output Urine Total 700 ml 700 ml 620 ml # Voids 1 # Bowel Movements 1 1 Laboratory Laboratory Tests Test 11/16/17 14:02 11/17/17 03:40 Hemoglobin 9.3 8.9 Hematocrit 28.1 26.3 White Blood Count 9.9 Red Blood Count 2.88 Mean Corpuscular Volume 91.3 Mean Corpuscular Hemoglobin 30.8 Mean Corpuscular Hemoglobin Concent 33.8 Red Cell Distribution Width 19.3 Platelet Count 363 Mean Platelet Volume 8.3 Blood Urea Nitrogen 10 Creatinine 0.93 Random Glucose 121 Calcium Level 7.5 Sodium Level 140 Potassium Level 3.7 Chloride Level 109 Carbon Dioxide Level 23.6 Anion Gap 7 Estimat Glomerular Filtration Rate 82 Date/Time Source Procedure Growth Status 11/13/17 20:30 Blood Peripheral Aerobic Blood Culture - Preliminary NO GROWTH IN 4 DAYS Resulted 11/13/17 20:30 Blood Peripheral Anaerobic Blood Culture - Preliminary NO GROWTH IN 4 DAYS Resulted Imaging Last Impressions Abdomen Arteriogram 11/16/17 0000 Signed Impressions: Service Date/Time: November 12:43 - CONCLUSION: Uncomplicated mesenteric arteriography with gastroduodenal artery embolization. 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 Vineet Izaguirre MD Abdomen/Pelvis CT 11/13/17 0000 Signed Impressions: Service Date/Time: Monday, November 13, 2017 16:28 - CONCLUSION: Duodenal stent and biliary stent as described above stents obscure fine detail about the pancreas. Moderate ascites Liver metastases Isra Oliveira MD FACR Cholangiopancreatography MRI 11/12/17 0000 Signed Impressions: Service Date/Time: Sunday, November 12, 2017 20:01 - CONCLUSION: 1. Multiple lesions in the liver suspicious for metastatic disease not adequately characterized. 2. Slight ascites in the upper abdomen and cholelithiasis. 3. The bile ducts are difficult to visualize, however slight pneumobilia is present. 4. Slightly dilated pancreatic duct and the pancreas appears atrophic without a clear mass with technique. 5. May consider dedicated CT examination of the abdomen with intravenous contrast to further characterize. Tez Vergara MD Physical Exam HEENT: Normocephalic; atraumatic; + icterus CHEST: CTA CARDIAC: RRR ABDOMEN: Distended,soft, nontender, bowel sounds active EXTREMITIES: No clubbing, cyanosis, + BLE edema. SKIN: Normal; no rash; + jaundice. EDGE INKER: Alert and oriented x 3 (Rachel Dumont) Assessment and Plan Plan - Acute upper GI bleed- one day history of nausea, vomiting, hematemesis, melena, epigastric pain. He denies alcohol, NSAIDs or ASA. Hgb is 5.6. Hemodynamically stable Last bleeding episodes were last night. Currently feeling nauseous, still with epigastric pain. He is being transfused, on ppi drip - PMH of stage IV pancreatic cancer with mets to the liver under going chemo, status post biliary and duodenal stent that was placed in January of last yr Patient had initial stent placed at in [place] but got infected and was exchanged in [place], LFTs elevated. Not sure of base line, no previous visits. Patient is under the care of oncology at [facility] in [place], [place], 11/13/17 - pain, nausea improved. s/p EGD found gastritis, duodenal stent with ulcerated tissue around it, oozing but no specific bleeding site seen MRCP degraded by motion artifact, showed liver lesions, slight ascites, pneumobilia. mild decrease hgb today but no obvious bleeding (2/6) Reports black stools this morning. Slight drop in H/H currently 8.3/24.4 yesterday was 9.3/27.5. Has not received PRBCs since Nov 12. Pt evaluated by palliative care who states goals remain aggressive and pts primary goal is to return to [place] as he is scheduled for palliative chemotherapy tomorrow. Pt remains on Protonix gtt. CT abdomen and pelvis W IV contrast noted (11/13) --> Duodenal stent and biliary stent as described above stents obscure fine detail about the pancreas. Moderate ascites. Liver metastases. 11/15/17 + black tarry stool today. going for angiogram later. d/w palliative care. hgb 7.9 11/16/17 hgb 8.6 today. s/p angiogram, report pending. per pt there was an intervention. stool brown today. (11/17) --> Pt S/P GDA embolization yesterday --> Uncomplicated mesenteric arteriography with GDA embolization. The patient was found to have erosion of the GDA artery with a pseudoaneurysm leaking into the second portion of the duodenum at the level of the patient's duodenal stent. Small drop in H /H, currently 8.9/26.3, somewhat dilutional given IV fluids administer before and after embolization. Two BMs today, per RN one appeared to have some old blood in it and the other one was normal. Will DC Protonix gtt and place pt on Protonix IV push. CC waiting clearance to downgrade pt. From GI standpoint, ok to downgrade out of the ICU. Plan: - DC Protonix gtt - Protonix IV - Monitor H/H - Transfuse as needed - Notify GI of active bleeding - Supportive care Pt has been seen and examined by myself and Dr. Bonilla and this note is written on her behalf (Rachel Dumont) Physician Comments seen, examined agree with above ok to dc home from gi point gi will sign off call us as needed (Zhane Bonilla MD) Rachel Dumont Nov 17, 2017 13:54 Zhane Bonilla MD Nov 17, 2017 20:12
--- NOTE | 2017-11-17 14:57 | HHI.HCPN ---
Reason for visit a. To assist with evaluation and management of symptoms including: pain, nausea, weakness b. To assist medical decision maker(s) with: better understanding of current medical conditions; weighing benefits/burdens of medical treatment options; making medical treatment decisions. . Subjective/Interval History Mr. Mata is a 61 yo man with a known history of pancreatic cancer who is currently undergoing palliative chemotherapy status post biliary and duodenal stent placement. He presented to [facility] ED on 11/12/2017 with complaints of nausea, vomiting, hematemesis, melena and epigastric pain. Patient reported sudden onset of symptoms approximately 12 hours earlier. He endorsed chills, shortness of breath and weakness. Patient was pale and tachypneic on exam. Epigastric region was tender to palpation. Patient endorsed lightheadedness and dizziness. EGD which revealed gastritis as well as ulcerated tissue surrounding the duodenal stent. Follow up visit for symptom management and education of treatment goals. Patient seen in the intensive care unit; alert and oriented to person, place, time and situation. Generalized pallor appreciated status post angiogram yesterday 11/16/17 which showed erosion of the gastroduodenal artery with perforation into the second portion of the duodenum.the gastroduodenal artery was embolized. H/H this morning slightly decreased today at 8.9/26.3; previous H /H on 11/16/2017 was 9.3/28.1. Per nursing report, patient has had 2 BMs today one of which appear to have some old blood and the other was normal. Afebrile. WBC: 2.9. Blood culture remains negative to date. Patient remains Zosyn empirically. Having ongoing intermittent mild abdominal discomfort; denied pain on exam. Hydromorphone is available q3 hours PRN; 24 hour PRN requirements = 4mg. Patient denies nausea on exam, however he has utilized 2 doses of PRN Zofran in the past 24 hours. Will need to transition to oral medications prior to discharge. Patient continues to express aggressive goals stating he hopes he will be discharged as soon a possible so he can return home to [place] to continue palliative chemotherapy. . Advance Directives Living Will: Completed, but not made available Health Care Surrogate: Copy in medical record Advance Directive Specifics Date completed: 11/14/2017 . Health Care Surrogate(s): Patient designates his sister (Rachelle Mata) as his healthcare surrogate decision maker. . Documented care wishes: Patient states he has completed a written advanced directives at the [facility] in [place], [place]. Contacted medical records on 11/14/17 at [phone], awaiting faxed copies of completed written advanced directives. . Objective Vital Signs Date Time Temp Pulse Resp B/P (MAP) Pulse Ox O2 Delivery O2 Flow Rate FiO2 11/17/17 12:00 98.6 61 17 159/83 (108) 94 11/17/17 12:00 61 11/17/17 10:00 70 11/17/17 08:14 95 11/17/17 08:00 61 11/17/17 08:00 98.6 61 15 153/78 (103) 96 11/17/17 06:00 67 11/17/17 04:00 64 11/17/17 04:00 64 14 174/82 (112) 96 11/17/17 02:00 67 11/17/17 00:00 69 11/17/17 00:00 98.8 69 19 153/78 (103) 93 11/16/17 23:21 20 11/16/17 22:00 72 11/16/17 20:52 98 21 11/16/17 20:00 99.7 66 17 164/84 (110) 98 11/16/17 20:00 66 11/16/17 19:14 67 20 159/83 (108) 98 11/16/17 18:14 97.8 67 17 170/83 (112) 97 11/16/17 18:00 67 11/16/17 17:14 99.5 67 20 181/84 (116) 96 11/16/17 16:14 98.0 66 19 172/84 (113) 96 11/16/17 16:00 80 11/16/17 15:44 98.1 78 18 179/90 (119) 96 11/16/17 15:14 98.4 82 20 167/94 (118) 96 11/16/17 14:44 98.3 80 18 180/91 (120) 94 Intake & Output 11/17/17 11/17/17 07:00 19:00 Intake Total 1781.5 ml Output Total 620 ml Balance 1161.5 ml Intake Oral 400 ml IV Total 1381.5 ml Output Urine Total 620 ml # Bowel Movements 1 . Physical Exam CONSTITUTIONAL/GENERAL: This is a middle aged, pale male in no apparent distress. TUBES/LINES/DRAINS:PIV x 2 SKIN: Generalized pallor. No wounds seen anteriorly. Skin temperature appropriate. Not diaphoretic. HEAD: Atraumatic. Normocephalic. EYES: Pupils equal and round and reactive. Extraocular motions intact. No scleral icterus. No injection or drainage. Fundi not examined. ENT: Hearing grossly normal. Nose without bleeding or purulent drainage. NECK: Trachea midline. Supple, nontender. No palpable thyroid enlargement or nodularity. CARDIOVASCULAR: Regular rate and rhythm without murmurs, gallops, or rubs. No JVD. Peripheral pulses symmetric. RESPIRATORY/CHEST: Respirations unlabored Clear to auscultation. Breath sounds equal bilaterally. No wheezes, rales, or rhonchi. GASTROINTESTINAL: Abdomen slightly tender to palpation. No guarding. Bowel sounds present. GENITOURINARY: Without palpable bladder distension. MUSCULOSKELETAL: Extremities without clubbing or cyanosis. 1+ pedal edema bilaterally. LYMPHATICS: No palpable cervical or supraclavicular adenopathy. NEUROLOGICAL: Awake and alert. Motor and sensory grossly within normal limits. Follows commands. Cognitively sharp. Moves all extremities. PSYCHIATRIC: No obvious anxiety/depression. No apparent hallucinations or other psychotic thought process. . Diagnostic Tests Laboratory Laboratory Tests Test 11/15/17 04:41 11/15/17 14:33 11/16/17 03:50 11/16/17 14:02 White Blood Count 8.3 TH/MM3 (4.0-11.0) 7.3 TH/MM3 (4.0-11.0) Red Blood Count 2.30 MIL/MM3 (4.50-5.90) 2.77 MIL/MM3 (4.50-5.90) Hemoglobin 7.9 GM/DL (13.0-17.0) 9.5 GM/DL (13.0-17.0) 8.6 GM/DL (13.0-17.0) 9.3 GM/DL (13.0-17.0) Hematocrit 22.1 % (39.0-51.0) 28.5 % (39.0-51.0) 25.7 % (39.0-51.0) 28.1 % (39.0-51.0) Mean Corpuscular Volume 96.0 FL (80.0-100.0) 92.7 FL (80.0-100.0) Mean Corpuscular Hemoglobin 34.5 PG (27.0-34.0) 31.2 PG (27.0-34.0) Mean Corpuscular Hemoglobin Concent 35.9 % (32.0-36.0) 33.6 % (32.0-36.0) Red Cell Distribution Width 20.6 % (11.6-17.2) 20.6 % (11.6-17.2) Platelet Count 241 TH/MM3 (150-450) 264 TH/MM3 (150-450) Mean Platelet Volume 9.4 FL (7.0-11.0) 9.1 FL (7.0-11.0) Blood Urea Nitrogen 13 MG/DL (7-18) 11 MG/DL (7-18) Creatinine 1.04 MG/DL (0.60-1.30) 0.96 MG/DL (0.60-1.30) Random Glucose 82 MG/DL (74-106) 72 MG/DL (74-106) Calcium Level 7.5 MG/DL (8.5-10.1) 8.2 MG/DL (8.5-10.1) Sodium Level 139 MEQ/L (136-145) 141 MEQ/L (136-145) Potassium Level 3.5 MEQ/L (3.5-5.1) 3.6 MEQ/L (3.5-5.1) Chloride Level 107 MEQ/L (98-107) 108 MEQ/L (98-107) Carbon Dioxide Level 23.1 MEQ/L (21.0-32.0) 24.9 MEQ/L (21.0-32.0) Anion Gap 9 MEQ/L (5-15) 8 MEQ/L (5-15) Estimat Glomerular Filtration Rate 72 ML/MIN (>89) 79 ML/MIN (>89) Test 11/17/17 03:40 White Blood Count 9.9 TH/MM3 (4.0-11.0) Red Blood Count 2.88 MIL/MM3 (4.50-5.90) Hemoglobin 8.9 GM/DL (13.0-17.0) Hematocrit 26.3 % (39.0-51.0) Mean Corpuscular Volume 91.3 FL (80.0-100.0) Mean Corpuscular Hemoglobin 30.8 PG (27.0-34.0) Mean Corpuscular Hemoglobin Concent 33.8 % (32.0-36.0) Red Cell Distribution Width 19.3 % (11.6-17.2) Platelet Count 363 TH/MM3 (150-450) Mean Platelet Volume 8.3 FL (7.0-11.0) Blood Urea Nitrogen 10 MG/DL (7-18) Creatinine 0.93 MG/DL (0.60-1.30) Random Glucose 121 MG/DL (74-106) Calcium Level 7.5 MG/DL (8.5-10.1) Sodium Level 140 MEQ/L (136-145) Potassium Level 3.7 MEQ/L (3.5-5.1) Chloride Level 109 MEQ/L (98-107) Carbon Dioxide Level 23.6 MEQ/L (21.0-32.0) Anion Gap 7 MEQ/L (5-15) Estimat Glomerular Filtration Rate 82 ML/MIN (>89) . Result Diagram: 11/17/17 0340 11/17/17 0340 Imaging Last 72 hours Impressions Abdomen Arteriogram 11/16/17 0000 Signed Impressions: Service Date/Time: November 12:43 - CONCLUSION: Uncomplicated mesenteric arteriography with gastroduodenal artery embolization. 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 Vineet Izaguirre MD . Procedures 11/16/2017: Abdominal arteriogram . Assessment and Plan Disease Oriented Problem List: (1) Personal history of pulmonary embolism (2) Anemia Comment: Secondary to GI bleed (3) GIB (gastrointestinal bleeding) (4) GI bleed (5) Pancreatic cancer metastasized to liver (6) SHELLY (acute kidney injury) Comment: Resolving Symptom Scale: (1) Pain 0-10 Scale: 2 (2) Nausea 0-10 Scale: 0 (3) Weakness 0-10 Scale: Unable to quantify Pertinent Non-Medical Issues Psychosocial: Spiritual: Legal: Ethical issues impacting care: Important Contacts Rachelle Mata, sister: [phone] London Le, friend: [phone] Prognosis Patient with pancreatic cancer who is currently undergoing palliative chemotherapy status post biliary and duodenal stent placement. Currently hospitalized secondary to GIB; patient was hospitalized last year with an upper GI bleed due to duodenal stent erosion.states this happened previously last year due to friable tissue at the stent site. Patient describes his functional status prior to this recent hospitalization as "pretty good." Patient's condition is terminal and remains high risk for continued complications and setbacks. . Code Status: Full Code Plan * ALTERNATE CODE- intubation only * Decision-making: Patient currently has insight and judgment related to his medical conditions. He designates his sister (Rachelle Mata) as his healthcare surrogate decision maker. * Patient states he has completed a written advanced directives at the [facility] in [place], [place]. Contacted medical records at [phone] , awaiting faxed copies of completed written advanced directives. * Goals remain aggressive. Patient's primary goal at this time is to return to [facility] as he is scheduled to be there 11/15/2017 to receive his chemotherapy. Patient is here with his friend (London Le) who he plans to drive home with when he is stable. * Discussed patient with bedside nurse (Yenny). * Symptom management: = Pain: Abdominal pain associated with pancreatic cancer. Patient reporting ongoing, intermittent, mild abdominal discomfort. At home patient was on methadone 5mg PO q8 hours and oxycodone 10mg PO q8 hours PRN. Receiving hydromorphone 1 mg q3 hours PRN. 24 hour PRN requirements = 3mg hydromorphone. Will need to transition back to oral pain medication prior to discharge. When tolerating PO, consider changing IV Hydromorphone to oral dose: 4 PO q8 hours ATC and 4mg PO q4 hours PRN for breakthrough pain. = Nausea: Resolved. PRN Zofran available-2 dose required in the past 24 hours. = Weakness: Weakness related to anemia status post GI bleed. Additional contributing factors may include disease progression, nausea, decreased nutritional intake. May consider consulting PT prior to discharge. * Palliative care will continue to follow this patient throughout his hospitalization to establish trust, assist with symptom management and clarification of medical treatment goals. . Attestation To help prompt me to consider important information that might be impacting today's encounter and assessment, information from prior notes written by myself or my colleagues may have been "brought forward" into today's note. My signature on this note, however, is an attestation that I personally performed the exam, history, and/or decision-making noted today, and, unless otherwise indicated, the interactions with patient, family, and staff as well as the review of records all occurred today. I also attest that the listed assessment and stated plan reflect my best clinical judgment today based on the combination of historical information, prior notes, and today's exam/ interactions. When time spent is documented, it refers only to time spent today by the signer, or if indicated, combined time spent today by collaborating physician/nurse practitioner. . Luz Martinez Nov 17, 2017 14:57
[2017-11-17] MEDS: PANTOPRAZOLE SODIUM 40 MG VIAL IV PUSH SCH (15:02)
[2017-11-18] VITALS (11 sets, daily range): BP systolic 125–163; BP diastolic 65–89; PULSE 56–97; RESP 18–20; TEMP 97.5–98.7; O2SAT 95–98
[2017-11-18] MEDS: PIPERACIL-TAZO 4.5 GM PREMIX 100 ML IV SCH ×4 (00:56→18:18)
[2017-11-18] MEDS: HYDROmorphone HCL PF 2 MG/ML VIAL IV PUSH PRN ×5 (00:56→15:28)
[2017-11-18] MEDS: PANTOPRAZOLE SODIUM 40 MG VIAL IV PUSH SCH ×2 (01:55→15:28)
[2017-11-18] MEDS: CHLORHEXIDINE GLUCONATE 2 % 1 PACK (2 CLOTHS) TOP SCH (04:00)
[2017-11-18] MEDS: ONDANSETRON HCL 4 MG/2 ML VIAL IV PUSH PRN ×3 (06:23→21:07)
[2017-11-18 07:26] LABS: HEMATOCRIT 22.9 % (39.0-51.0); HEMOGLOBIN 7.9 GM/DL (13.0-17.0); MEAN CELL VOLUME 91.5 FL (80.0-100.0); MEAN CORPUSCULAR HEMOGLOBIN 31.5 PG (27.0-34.0); MEAN CORPUSCULAR HGB CONC 34.5 % (32.0-36.0); MEAN PLATELET VOLUME 8.4 FL (7.0-11.0); PLATELET COUNT 312 TH/MM3 (150-450); RED CELL DISTRIBUTION WIDTH 19.7 % (11.6-17.2); WHITE BLOOD COUNT 7.4 TH/MM3 (4.0-11.0)
[2017-11-18 07:39] LABS: BICARBONATE 26.8 MEQ/L (21.0-32.0); CALCIUM 7.8 MG/DL (8.5-10.1); CREATININE 1.04 MG/DL (0.60-1.30)
[2017-11-18] MEDS ORDERED: HYDROmorphone HCL 2 MG TAB PO PRN (08:30)
[2017-11-18] MEDS ORDERED: SODIUM CHLOR 0.9% 250 ML INJ 250 ML IV ONE (08:30)
[2017-11-18] MEDS ORDERED: NALOXONE HCL 0.4 MG/ML AMP IV PUSH PRN (08:30)
[2017-11-18] MEDS ORDERED: PILL SPLITTER OTHER PRN (09:15)
[2017-11-18] MEDS ORDERED: ZOLPIDEM TARTRATE 10 MG TAB PO PRN (09:30)
[2017-11-18] MEDS: VENLAFAXINE HCL XR 75 MG CAP PO SCH (09:45)
[2017-11-18] MEDS: SUCRALFATE 1 GM TAB PO SCH ×4 (09:45→21:05)
[2017-11-18] MEDS ORDERED: GABAPENTIN 300 MG CAP PO SCH (10:00)
[2017-11-18] MEDS ORDERED: FUROSEMIDE 20 MG/2 ML VIAL IV PUSH ONE (10:30)
[2017-11-18] MEDS: POTASSIUM CHLORIDE 20 MEQ CONTROLLED RELEASE TAB PO SCH ×2 (10:45→21:07)
[2017-11-18] MEDS: ALBUMIN 25% INJ 50 ML IV SCH ×2 (10:45→19:23)
--- NOTE | 2017-11-18 11:28 | HHI.PR ---
Subjective Remarks Follow-up GI bleed. Patient feels good no further GI bleed. Hemoglobin 7.9 with blood transfusion. Denies shortness of breath and dizziness. Discussed with nursing Objective Vitals Vital Signs Date Time Temp Pulse Resp B/P (MAP) Pulse Ox O2 Delivery O2 Flow Rate FiO2 11/18/17 08:00 97.8 64 18 139/72 (94) 95 11/18/17 04:26 98 11/18/17 04:00 98.5 63 20 125/65 (85) 97 11/18/17 04:00 56 11/18/17 00:00 69 11/18/17 00:00 98.7 68 20 146/83 (104) 96 11/17/17 20:30 Room Air 11/17/17 20:30 68 11/17/17 20:00 98.9 68 18 133/68 (89) 98 11/17/17 17:26 99 21 11/17/17 17:19 Room Air 11/17/17 17:00 98.8 58 18 152/80 (104) 98 11/17/17 16:00 59 11/17/17 16:00 98.5 59 20 176/87 (116) 99 11/17/17 14:00 64 11/17/17 12:00 98.6 61 17 159/83 (108) 94 11/17/17 12:00 61 I/O 11/17/17 11/17/17 11/17/17 11/18/17 11/18/17 11/18/17 07:00 15:00 23:00 07:00 15:00 23:00 Intake Total 1045.5 ml 160 ml 600 ml 680 ml Output Total 620 ml 1350 ml Balance 425.5 ml 160 ml -750 ml 680 ml Intake Oral 400 ml 600 ml 580 ml IV Total 645.5 ml 160 ml 100 ml Output Urine Total 620 ml 1350 ml # Voids 1 2 # Bowel Movements 1 2 1 Result Diagram: 11/18/17 0600 11/18/17 0600 Imaging Last Impressions Abdomen Arteriogram 11/16/17 0000 Signed Impressions: Service Date/Time: November 12:43 - CONCLUSION: Uncomplicated mesenteric arteriography with gastroduodenal artery embolization. 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 Vineet Izaguirre MD Abdomen/Pelvis CT 11/13/17 0000 Signed Impressions: Service Date/Time: Monday, November 13, 2017 16:28 - CONCLUSION: Duodenal stent and biliary stent as described above stents obscure fine detail about the pancreas. Moderate ascites Liver metastases Isra Oliveira MD FACR Cholangiopancreatography MRI 11/12/17 0000 Signed Impressions: Service Date/Time: Sunday, November 12, 2017 20:01 - CONCLUSION: 1. Multiple lesions in the liver suspicious for metastatic disease not adequately characterized. 2. Slight ascites in the upper abdomen and cholelithiasis. 3. The bile ducts are difficult to visualize, however slight pneumobilia is present. 4. Slightly dilated pancreatic duct and the pancreas appears atrophic without a clear mass with technique. 5. May consider dedicated CT examination of the abdomen with intravenous contrast to further characterize. Tez Vergara MD Objective Remarks General: No acute distress. SKIN: No rash or lesions Heart: Regular rate and rhythm. No murmur. Lungs: Clear to auscultation bilaterally. No wheezes, rales, or rhonchi. Breathing is nonlabored. Abdomen: Soft, nontender, nondistended. Extremities: 2+ bilateral lower extremity edema. Psych: Alert and oriented. Procedures 11/12/17 EGD 11/16/17 angiogram with embolization of gastroduodenal artery A/P Problem List: (1) GIB (gastrointestinal bleeding) ICD Code: K92.2 - Gastrointestinal hemorrhage, unspecified Assessment and Plan 1. Acute blood loss anemia secondary to GI bleed: Hemoglobin decreased again this morning. Not having dark stools. The patient has received a total of 4 units PRBCs during this hospitalization. Will transfuse 1 more unit to keep hemoglobin at least 8. Monitor H&H closely. Status post EGD, which noted gastritis as well as ulcerated tissue surrounding duodenal stent. Continue Protonix IV. Appreciate gastroenterology recommendations. Angiogram showed erosion of gastroduodenal artery with perforation into the second portion of the duodenum. The gastroduodenal artery was embolized. 2. Metastatic pancreatic cancer: Oncology recommended outpatient follow-up. Patient has been receiving palliative chemotherapy in [place] and wants to return there for further treatment. 3. Elevated LFTs: Likely secondary to liver metastases. 4. Acute kidney injury: Resolved. 5. Fever: Remains afebrile. Continue Zosyn empirically. Blood cultures are negative so far. Plan to discontinue Zosyn tomorrow 6. Peripheral edema secondary to hypoalbuminemia. Start IV albumin and Lasix DVT prophylaxis: SCDs. Avoid chemical prophylaxis secondary to GI bleed, anemia. Discharge Planning Possible discharge later today if hemoglobin stable Juan Saldaña MD Nov 18, 2017 11:28
[2017-11-18] MEDS: LIPASE/PROTEASE/AMYLASE (24,000/76,000/120,000) CAP PO SCH ×3 (12:05→21:05)
--- NOTE | 2017-11-18 14:45 | HHI.DCPOC ---
Discharge Care Plan Diagnosis: (1) GI bleed Your Health Problems Are: Difficulty with ADL Exercise Tolerance Goals to Promote Your Health * To prevent worsening of your condition and complications * To maintain your health at the optimal level Directions to Meet Your Goals Take your medications as prescribed Follow your dietary instruction Follow activity as directed Keep your appointments as scheduled Take your immunizations and boosters as scheduled If your symptoms worsen call your PCP, if no PCP go to Urgent Care Center or Emergency Room Smoking is Dangerous to Your Health. Avoid second hand smoke Call the 24-hour hour crisis hotline for domestic abuse at Juan Saldaña MD Nov 18, 2017 14:45
--- NOTE | 2017-11-18 14:48 | HHI.DS ---
Discharge Summary Admission Date Nov 12, 2017 at 13:24 Discharge Date: Nov 19, 2017 Admitting Diagnosis anemia, GI bleed (1) GIB (gastrointestinal bleeding) ICD Code: K92.2 - Gastrointestinal hemorrhage, unspecified Diagnosis: Principal Procedures 11/12/17 EGD 11/16/17 angiogram with embolization of gastroduodenal artery Brief History - From Admission This is a 61-year-old male with pancreatic cancer of which the patient states his terminal undergoing palliative chemotherapy who presents with hematemesis for approximately 12 hours. He states that he had chemotherapy last about 2 weeks ago. He gets all of his care at the [facility] in [facility]. He states his next chemotherapy is in 3 days. He also states that he has had prior bleeding at his biliary stent site. He has both a biliary stent and a duodenal stent. He does endorse fatigue, nausea, vomiting, diarrhea , melena, hematemesis, and epigastric pain. He denies fever, chills, chest pain , shortness of breath. This has happened before, and the last time it was his biliary stent. He received 2 units and crossmatched blood in the emergency department. His hemoglobin is 5.6 prior to transfusion. Cr 1.32. coags are wnl. CBC/BMP: 11/18/17 0600 11/18/17 0600 Significant Findings Laboratory Tests Test 11/16/17 03:50 11/16/17 14:02 11/17/17 03:40 11/18/17 06:00 Red Blood Count 2.77 MIL/MM3 (4.50-5.90) 2.88 MIL/MM3 (4.50-5.90) 2.50 MIL/MM3 (4.50-5.90) Hemoglobin 8.6 GM/DL (13.0-17.0) 9.3 GM/DL (13.0-17.0) 8.9 GM/DL (13.0-17.0) 7.9 GM/DL (13.0-17.0) Hematocrit 25.7 % (39.0-51.0) 28.1 % (39.0-51.0) 26.3 % (39.0-51.0) 22.9 % (39.0-51.0) Red Cell Distribution Width 20.6 % (11.6-17.2) 19.3 % (11.6-17.2) 19.7 % (11.6-17.2) Random Glucose 72 MG/DL (74-106) 121 MG/DL (74-106) Calcium Level 8.2 MG/DL (8.5-10.1) 7.5 MG/DL (8.5-10.1) 7.8 MG/DL (8.5-10.1) Chloride Level 108 MEQ/L (98-107) 109 MEQ/L (98-107) 108 MEQ/L (98-107) Estimat Glomerular Filtration Rate 79 ML/MIN (>89) 82 ML/MIN (>89) 72 ML/MIN (>89) Imaging Last Impressions Abdomen Arteriogram 11/16/17 0000 Signed Impressions: Service Date/Time: November 12:43 - CONCLUSION: Uncomplicated mesenteric arteriography with gastroduodenal artery embolization. 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 Vineet Izaguirre MD Abdomen/Pelvis CT 11/13/17 0000 Signed Impressions: Service Date/Time: Monday, November 13, 2017 16:28 - CONCLUSION: Duodenal stent and biliary stent as described above stents obscure fine detail about the pancreas. Moderate ascites Liver metastases Isra Oliveira MD FACR Cholangiopancreatography MRI 11/12/17 0000 Signed Impressions: Service Date/Time: Sunday, November 12, 2017 20:01 - CONCLUSION: 1. Multiple lesions in the liver suspicious for metastatic disease not adequately characterized. 2. Slight ascites in the upper abdomen and cholelithiasis. 3. The bile ducts are difficult to visualize, however slight pneumobilia is present. 4. Slightly dilated pancreatic duct and the pancreas appears atrophic without a clear mass with technique. 5. May consider dedicated CT examination of the abdomen with intravenous contrast to further characterize. Tez Vergara MD PE at Discharge General: No acute distress. SKIN: No rash or lesions Heart: Regular rate and rhythm. No murmur. Lungs: Clear to auscultation bilaterally. No wheezes, rales, or rhonchi. Breathing is nonlabored. Abdomen: Soft, nontender, nondistended. Extremities: 2+ bilateral lower extremity edema. Psych: Alert and oriented. Pt update on day of discharge Dc held yesterday 2/2 nausea. Improved tolerating po. No signs of dehydration. Stable for dc Hospital Course 1. Acute blood loss anemia secondary to GI bleed: Hemoglobin has improved after 5 units PRBCs transfusion during this hospitalization. Status post EGD, which noted gastritis as well as ulcerated tissue surrounding duodenal stent. Continue Protonix. Appreciate gastroenterology recommendations. Angiogram showed erosion of gastroduodenal artery with perforation into the second portion of the duodenum. The gastroduodenal artery was embolized. 2. Metastatic pancreatic cancer: Oncology recommended outpatient follow-up. Patient has been receiving palliative chemotherapy in [place] and wants to return there for further treatment. 3. Elevated LFTs: Likely secondary to liver metastases. 4. Acute kidney injury: Resolved. 5. Fever: Remains afebrile. Received Zosyn empirically. Blood cultures are negative so far. Daily 6. Peripheral edema secondary to hypoalbuminemia. Improving. Received IV albumin and Lasix. Takes prn Lasix. Advised to take Lasix QD with Kcl for 4 days then repeat BMP DVT prophylaxis: SCDs. Avoid chemical prophylaxis secondary to GI bleed, anemia. Pt Condition on Discharge: Stable Discharge Disposition: Discharge Home Discharge Time: > 30 minutes Discharge Instructions DIET: Follow Instructions for: Heart Healthy Diet Activities you can perform: Regular-No Restrictions Activities to Avoid: Driving Follow up Referrals: Gastroenterology - 1 Week Oncology - 1 Week PCP Follow-up - 1 Week New Orders: BASIC METABOLIC PROF - 11/23/17 New Medications: Furosemide (Lasix) 20 Mg Tab 20 MG PO DAILY for fluyid retention, #4 TAB 0 Refills Potassium Chloride Microencaps (Potassium Chloride Microencaps) 20 Meq Tab 20 MEQ PO DAILY for Electrolyte Replacement, #4 TAB Continued Medications: Furosemide (Lasix) 20 Mg Tab 20 MG PO DAILY PRN for LEG SWELLING, #30 TAB 0 Refills Methadone (Methadone) 5 Mg Tab 5 MG PO Q8HR for Pain Management, TAB Mirtazapine (Remeron) 15 Mg Tab 7.5 MG PO HS PRN for SLEEP, #15 TAB 0 Refills Omeprazole (Omeprazole) 20 Mg Tab 20 MG PO BID, #30 TAB 0 Refills Oxycodone (Oxycodone) 10 Mg Tab 10 MG PO Q8HR PRN for BREAKTHROUGH PAIN, TAB 0 Refills NOT TO EXCEED 3 DOSES/24HR Pancrelipase (Creon) 36,000-114,000-180,000 Units Cap 1 CAP PO QID for Digestive Aid, #90 CAP 0 Refills BEFORE MEALS AND SNACKS Prochlorperazine Maleate (Prochlorperazine Maleate) 10 Mg Tab 10 MG PO Q6H PRN for NAUSEA OR VOMITING, TAB 0 Refills Sucralfate (Carafate) 1 Gram Tab 1 GM PO QID for Ulcer Prevention, #120 TAB 0 Refills On empty stomach Venlafaxine ER 24 HR (Effexor XR 24 HR) 75 Mg Cap 75 MG PO DAILY, #30 CAP 0 Refills Zolpidem ER (Ambien CR) 12.5 Mg Tab 12.5 MG PO HS PRN for INSOMNIA, TAB 0 Refills Juan Saldaña MD Nov 18, 2017 14:48
[2017-11-18 17:09] LABS: HEMATOCRIT 27.2 % (39.0-51.0); HEMOGLOBIN 9.3 GM/DL (13.0-17.0)
[2017-11-18] MEDS ORDERED: 1/2 NS + KCL 20 MEQ INJ 1,000 ML IV PRN (18:00)
[2017-11-18] MEDS: FUROSEMIDE 20 MG/2 ML VIAL IV PUSH SCH (18:18)
[2017-11-18] MEDS: HYDROmorphone HCL 2 MG TAB PO PRN (21:06)
[2017-11-19] VITALS: BP 129/71; PULSE 76; RESP 16; TEMP 98.7; O2SAT 94
[2017-11-19] MEDS: PIPERACIL-TAZO 4.5 GM PREMIX 100 ML IV SCH ×2 (01:13→05:22)
[2017-11-19 03:42] VITALS: PULSE 66
[2017-11-19] MEDS: CHLORHEXIDINE GLUCONATE 2 % 1 PACK (2 CLOTHS) TOP SCH (03:42)
[2017-11-19] MEDS: PANTOPRAZOLE SODIUM 40 MG VIAL IV PUSH SCH (03:42)
[2017-11-19 04:00] VITALS: BP 141/81; PULSE 63; RESP 16; TEMP 98.4; O2SAT 96
[2017-11-19] MEDS: HYDROmorphone HCL 2 MG TAB PO PRN (05:22)
[2017-11-19] MEDS: ONDANSETRON HCL 4 MG/2 ML VIAL IV PUSH PRN (05:22)
[2017-11-19 07:03] LABS: AUTOMATED NEUTROPHIL # 4.9 TH/MM3 (1.8-7.7); BASOPHIL % 0.4 % (0.0-2.0); EOSINOPHIL # 0.1 TH/MM3 (0-0.4); EOSINOPHIL % 0.9 % (0.0-4.0); HEMATOCRIT 26.8 % (39.0-51.0); LYMPH % 13.3 % (9.0-44.0); LYMPHOCYTE # 0.9 TH/MM3 (1.0-4.8); MEAN CELL VOLUME 90.3 FL (80.0-100.0); MEAN CORPUSCULAR HEMOGLOBIN 30.4 PG (27.0-34.0); MEAN CORPUSCULAR HGB CONC 33.6 % (32.0-36.0); MEAN PLATELET VOLUME 8.3 FL (7.0-11.0); MONO % 13.9 % (0.0-8.0); NEUT % 71.5 % (16.0-70.0); PLATELET COUNT 347 TH/MM3 (150-450); RED BLOOD COUNT 2.96 MIL/MM3 (4.50-5.90); RED CELL DISTRIBUTION WIDTH 19.5 % (11.6-17.2); WHITE BLOOD COUNT 6.9 TH/MM3 (4.0-11.0)
[2017-11-19 07:28] LABS: BICARBONATE 27.8 MEQ/L (21.0-32.0); CALCIUM 8.2 MG/DL (8.5-10.1); CREATININE 1.07 MG/DL (0.60-1.30); MAGNESIUM 1.7 MG/DL (1.5-2.5)
[2017-11-19 08:00] VITALS: BP 119/57; PULSE 65; PULSE 76; RESP 18; TEMP 97.7; O2SAT 94
[2017-11-19] MEDS: ALBUMIN 25% INJ 50 ML IV SCH (08:10)
[2017-11-19] MEDS: VENLAFAXINE HCL XR 75 MG CAP PO SCH (08:10)
[2017-11-19] MEDS: LIPASE/PROTEASE/AMYLASE (24,000/76,000/120,000) CAP PO SCH (08:10)
[2017-11-19] MEDS: SUCRALFATE 1 GM TAB PO SCH (08:10)
[2017-11-19] MEDS: POTASSIUM CHLORIDE 20 MEQ CONTROLLED RELEASE TAB PO SCH (08:11)
[2017-11-19] MEDS: FUROSEMIDE 20 MG/2 ML VIAL IV PUSH SCH (08:12)
[2017-11-19 08:58] LABS: BANDS 4 % (0-6); LYMPHOCYTES 8 % (9-44); MONOCYTES 7 % (0-8); MYELOCYTES 1 % (0-0); NEUTROPHIL # MANUAL DIFF 5.8 TH/MM3 (1.8-7.7); POLYS (SEG NEUTROPHILS) 79 % (16-70)
[2017-11-19] MEDS ORDERED: POTASSIUM CHLORIDE 10 MEQ CONTROLLED RELEASE TAB PO ONE (10:00)
[2017-11-19] MEDS ORDERED: POTA20TA5 PO (11:05)
[2017-11-19] MEDS ORDERED: FURO1TAB62 PO (11:05)
== END 2017-11-19 11:56 | disposition home or self-care (01) | DRG 908 ==
LOC: NEPE 11:44 → NEDA 13:24 → HIMN 15:00 → N04A 11-17 17:04
PROVIDERS: ADMIT Internal Medicine; ATTEND Internal Medicine
PROC: 0DJ08ZZ Inspection of Upper Intestinal Tract, Via Natural or Artificial Opening Endoscopic (ICD-10-PCS; 2017-11-12)
PROC: 30233N1 Transfusion of Nonautologous Red Blood Cells into Peripheral Vein, Percutaneous Approach (ICD-10-PCS; 2017-11-12)
PROC: 04L33DZ Occlusion of Hepatic Artery with Intraluminal Device, Percutaneous Approach (ICD-10-PCS; principal; 2017-11-16)
PROC: B4141ZZ Fluoroscopy of Superior Mesenteric Artery using Low Osmolar Contrast (ICD-10-PCS; 2017-11-16)
PROC: B4101ZZ Fluoroscopy of Abdominal Aorta using Low Osmolar Contrast (ICD-10-PCS; 2017-11-16)
PROC: B4121ZZ Fluoroscopy of Hepatic Artery using Low Osmolar Contrast (ICD-10-PCS; 2017-11-16)
PROC: B41B1ZZ Fluoroscopy of Other Intra-Abdominal Arteries using Low Osmolar Contrast (ICD-10-PCS; 2017-11-16)
DX: T85.898A Other specified complication of other internal prosthetic devices, implants and grafts, initial encounter (principal); K92.2 Gastrointestinal hemorrhage, unspecified; N17.9 Acute kidney failure, unspecified; C78.7 Secondary malignant neoplasm of liver and intrahepatic bile duct; R18.8 Other ascites; I72.8 Aneurysm of other specified arteries; C25.9 Malignant neoplasm of pancreas, unspecified; D62 Acute posthemorrhagic anemia; E88.09 Other disorders of plasma-protein metabolism, not elsewhere classified; I77.89 Other specified disorders of arteries and arterioles; E86.9 Volume depletion, unspecified; K29.70 Gastritis, unspecified, without bleeding; R06.82 Tachypnea, not elsewhere classified; R79.89 Other specified abnormal findings of blood chemistry; R74.8 Abnormal levels of other serum enzymes; Z51.5 Encounter for palliative care; R50.9 Fever, unspecified; Z80.0 Family history of malignant neoplasm of digestive organs; Z92.21 Personal history of antineoplastic chemotherapy; Z86.711 Personal history of pulmonary embolism; Y83.8 Other surgical procedures as the cause of abnormal reaction of the patient, or of later complication, without mention of misadventure at the time of the procedure
CPT/HCPCS: 36245; 36247; 36248; 36430; 37243; 74177; 74183; 75726; 75774; 76377; 76937; 80048; 80053; 80076; 81001; 83690; 83735; 84100; 85007; 85014; 85018; 85025; 85027; 85610; 85730; 86850; 86900; 86901; 86920; 87040; 87641; 94150; 94640; 94667; 94668; 96361; 96374; 96375; 99152; 99153; A9579; C1769; C1887; C1894; C9113; J0330; J1170; J1940; J2250; J2270; J2405; J2543; J3010; J7030; J7050; P9016; P9040; P9047; Q9963; Q9967